=== PATIENT | female | born 1975 | race Caucasian/White ===

== ENCOUNTER 2018-03-23 22:32 | Emergency (ER) | payer SELFPAY ==
[2018-03-23] MEDS ORDERED: NA CHLORIDE 0.9% 2,000 ML ONE (23:40)
[2018-03-23] MEDS ORDERED: ONDANSETRON 4 MG/2 ML VIAL ONE (23:40)
[2018-03-23] MEDS ORDERED: MORPHINE 4 MG/ML SYR ONE (23:40)
[2018-03-23 23:42] LABS: Absolute Lymphocytes (CBC) 1.7 K/uL (0.7-4.9); Absolute Monocytes 0.3 K/uL (0.1-1.3); Absolute Neutrophil 2.5 K/uL (1.8-8.0); Eosinophils % 2.1 % (0-4.4); Hematocrit 37.2 % (36.0-45.0); Lymphocytes % 36.8 % (15.3-44.8); MCH 32.3 pg (27.0-35.0); MCV 92.6 fL (80-100); MPV 9.5 fL (7.6-11.3); Monocytes % 6.7 % (3.3-12.3); RBC Red Blood Cell Count 4.02 M/uL (3.86-4.86)
[2018-03-23 23:46] LABS: Protime INR 0.95
[2018-03-24 00:05] LABS: ALT/SGPT 16 U/L (12-78); AST/SGOT 12 U/L (15-37); Albumin 3.4 g/dL (3.4-5.0); Alkaline Phosphatase 85 U/L (45-117); Amylase Level 34 U/L (25-115); BUN Blood Urea Nitrogen 7 mg/dL (7-18); Bicarbonate 26 mmol/L (21-32); Bilirubin Direct < 0.1 mg/dL (0-0.2); Bilirubin Total 0.2 mg/dL (0.2-1.0); CKMB Creatine Kinase MB < 1.0 ng/mL (0.3-3.6); Creatine Phosphokinase 75 U/L (26-192); Glucose Level 98 mg/dL (74-106); Lipase 102 U/L (73-393); Magnesium 2.1 mg/dL (1.8-2.4); NT PRO-BNP 251 pg/mL (<125); Potassium 3.5 mmol/L (3.5-5.1); Protein, Total 6.9 g/dL (6.4-8.2); Sodium Level 139 mmol/L (136-145); Troponin (Emerg Dept Use Only) < 0.02 ng/mL (0.0-0.045)
[2018-03-24 00:15] LABS: Urine Mucus 2+ /HPF (NONE SEEN)
[2018-03-24 00:16] LABS: Urine Bacteria 20-50 /HPF (<20); Urine Culture Reflex Order REFLEXED
--- NOTE | 2018-03-24 02:37 | EDPHYS ---
Physician Documentation [facility] Name: Anne Marie Dubon Age: 43 yrs Sex: Female : 1975 Arrival Date: 03/23/2018 Time: 22:33 Bed 27 Private MD: ED Physician Olu Renee HPI: 03/23 23:20 This 43 yrs old Female presents to ER via EMS with complaints of Syncope. pkl 23:20 The patient presents with abdominal pain right lower quadrant. Onset: The pkl symptoms/episode began/occurred 3 week(s) ago, and became worse just prior to arrival. Associated signs and symptoms: Pertinent positives: syncope. 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 - Social history:: Smoking status: unknown. - Ebola Screening: : No symptoms or risks identified at this time. ROS: 23:20 Eyes: Negative for injury, pain, redness, and discharge, ENT: Negative for injury, pkl pain, and discharge, Neck: Negative for injury, pain, and swelling, Cardiovascular: Negative for chest pain, palpitations, and edema, Respiratory: Negative for shortness of breath, cough, wheezing, and pleuritic chest pain. 23:20 Abdomen/GI: Positive for abdominal pain, of the right lower quadrant. 23:20 Back: Negative for acute changes. 23:20 : Negative for urinary symptoms. 23:20 MS/extremity: Negative for acute changes. 23:20 Skin: Negative for rash. 23:20 Neuro: Negative for altered mental status. Exam: 23:20 Head/Face: Normocephalic, atraumatic. Eyes: Pupils equal round and reactive to light, pkl extra-ocular motions intact. Lids and lashes normal. Conjunctiva and sclera are non-icteric and not injected. Cornea within normal limits. Periorbital areas with no swelling, redness, or edema. ENT: Nares patent. No nasal discharge, no septal abnormalities noted. Tympanic membranes are normal and external auditory canals are clear. Oropharynx with no redness, swelling, or masses, exudates, or evidence of obstruction, uvula midline. Mucous membranes moist. Neck: Trachea midline, no thyromegaly or masses palpated, and no cervical lymphadenopathy. Supple, full range of motion without nuchal rigidity, or vertebral point tenderness. No Meningismus. Chest/axilla: Normal chest wall appearance and motion. Nontender with no deformity. No lesions are appreciated. Cardiovascular: Regular rate and rhythm with a normal S1 and S2. No gallops, murmurs, or rubs. Normal PMI, no JVD. No pulse deficits. Respiratory: Lungs have equal breath sounds bilaterally, clear to auscultation and percussion. No rales, rhonchi or wheezes noted. No increased work of breathing, no retractions or nasal flaring. 23:20 Abdomen/GI: Bowel sounds: normal, Palpation: soft, mild abdominal tenderness, in the right lower quadrant. 23:20 Back: Exam negative for acute changes. 23:20 : Exam negative for acute changes. 23:20 Musculoskeletal/extremity: Exam is negative for acute changes. 23:20 Skin: Exam negative for rash. 23:20 Neuro: Orientation: is normal, Mentation: is normal, Cranial nerves: grossly normal, Motor: is normal. Vital Signs: 22:56 BP 122 / 62; Pulse 61; Resp 18; Temp 98.3; Pulse Ox 100% on R/A; tl3 03/24 00:34 BP 109 / 67; Pulse 52; Resp 18; Pulse Ox 98% on R/A; tl3 01:03 BP 103 / 71; Pulse 71; Resp 16; Pulse Ox 98% on R/A; tl3 MDM: 03/23 23:12 Patient medically screened. pkl 03/24 02:34 Data reviewed: vital signs, nurses notes, lab test result(s), radiologic studies, CT pkl scan. 03/23 23:18 Order name: Basic Metabolic Panel; Complete Time: 02:32 pkl 03/23 23:18 Order name: CBC with Diff; Complete Time: 02:32 pkl 03/23 23:18 Order name: Ckmb; Complete Time: 02:32 pkl 03/23 23:18 Order name: CPK; Complete Time: 02:32 pkl 03/23 23:18 Order name: LFT's; Complete Time: 02:32 pkl 03/23 23:18 Order name: Magnesium; Complete Time: 02:32 pkl 03/23 23:18 Order name: NT PRO-BNP; Complete Time: 02:32 pkl 03/23 23:18 Order name: PT-INR; Complete Time: 02:32 pkl 03/23 23:18 Order name: Ptt, Activated; Complete Time: 02:32 pkl 03/23 23:18 Order name: Troponin (emerg Dept Use Only); Complete Time: 02:32 pkl 03/23 23:18 Order name: Amylase, Serum; Complete Time: 02:32 pkl 03/23 23:18 Order name: Lipase; Complete Time: 02:32 pkl 03/23 23:29 Order name: UA MICROSCOPIC; Complete Time: 02:32 tl3 03/24 00:18 Order name: Urine Culture [facility] 03/23 23:18 Order name: XRAY Chest (1 view) pk 03/23 23:18 Order name: EKG; Complete Time: 23:19 pkl 03/23 23:18 Order name: Cardiac monitoring; Complete Time: 01:39 pkl 03/23 23:18 Order name: EKG - Nurse/Tech; Complete Time: 00:09 pkl 03/23 23:18 Order name: IV Saline Lock; Complete Time: 01:39 pk 03/23 23:18 Order name: Labs collected and sent; Complete Time: 01:39 pkl 03/23 23:18 Order name: O2 Per Protocol; Complete Time: 01:39 pkl 03/23 23:18 Order name: O2 Sat Monitoring; Complete Time: 01:39 pkl 03/23 23:18 Order name: CT Abd/Pelvis - W/Contrast pk 03/23 23:18 Order name: CT Head Brain wo Cont pkl 03/23 23:18 Order name: Urine Dipstick-Ancillary (obtain specimen); Complete Time: 01:39 pkl Administered Medications: 03/23 23:46 Drug: Zofran 4 mg Route: IVP; Infused Over: 2 mins; Site: right antecubital; tl3 03/24 00:38 Follow up: Response: No adverse reaction tl3 00:37 Drug: morphine 2 mg Route: IVP; Infused Over: 2 mins; Site: right antecubital; tl3 02:38 Follow up: Response: No adverse reaction; Marked relief of symptoms mg2 00:38 Drug: NS 0.9% 1000 ml Route: IV; Rate: 1000 ml; Site: right antecubital; Delivery: tl3 Primary tubing; 00:38 Drug: NS 0.9% 1000 ml Route: IV; Rate: 125 ml/hr; Site: right antecubital; tl3 02:57 Follow up: IV Status: Order to discontinue infusion mg2 02:51 Drug: Cipro 500 mg Route: PO; mg2 02:57 Follow up: Response: No adverse reaction; Medication administered at discharge. mg2 02:51 Drug: UltRAM 50 mg Route: PO; mg2 02:56 Follow up: Response: No adverse reaction; Medication administered at discharge. mg2 Disposition: 03/24/18 02:36 Discharged to Home. Impression: Abdominal pain. Urinary tract infection. Cholelitiasis. Sycopal episode. - Condition is Stable. - Prescriptions for Ultram 50 mg Oral Tablet - take 1 tablet by ORAL route every 8 hours As needed; 20 tablet. Cipro 500 mg Oral Tablet - take 1 tablet by ORAL route every 12 hours for 7 days; 14 tablet. - Medication Reconciliation Form, Thank You Letter, Antibiotic Education, Prescription Opioid Use form. - Follow up: Private Physician; When: 2 - 3 days; Reason: Re-evaluation by your physician. - Problem is new. - Symptoms have improved. Signatures: Dispatcher [employer] EDMS Olu Renee MD MD pkl Lowrey, Tammy, RN RN tl3 Gabe Chapa RN RN mg2 Corrections: (The following items were deleted from the chart) 02:40 02:36 03/24/2018 02:36 Discharged to Home. Impression: Abdominal pain. Urinary tract pkl infection. Cholelitiasis. Condition is Stable. Forms are Medication Reconciliation Form, Thank You Letter, Antibiotic Education, Prescription Opioid Use. Follow up: Private Physician; When: 2 - 3 days; Reason: Re-evaluation by your physician. Problem is new. Symptoms have improved. pkl 02:58 02:40 03/24/2018 02:36 Discharged to Home. Impression: Abdominal pain. Urinary tract mg2 infection. Cholelitiasis. Sycopal episode. Condition is Stable. Prescriptions for Ultram 50 mg Oral Tablet - take 1 tablet by ORAL route every 8 hours As needed; 20 tablet, Cipro 500 mg Oral Tablet - take 1 tablet by ORAL route every 12 hours for 7 days; 14 tablet. and Forms are Medication Reconciliation Form, Thank You Letter, Antibiotic Education, Prescription Opioid Use. Follow up: Private Physician; When: 2 - 3 days; Reason: Re-evaluation by your physician. Problem is new. Symptoms have improved. pkl
--- NOTE | 2018-03-24 02:37 | ER ---
Nurse's Notes [facility] Name: Anne Marie Dubon Age: 43 yrs Sex: Female : 1975 Arrival Date: 03/23/2018 Time: 22:33 Bed 27 Private MD: Diagnosis: Abdominal pain. Urinary tract infection. Cholelitiasis. Sycopal episode Presentation: 03/23 22:51 Presenting complaint: EMS states: abdominal pain, back pain started tonight, became tl3 diaphoretic with possible syncope. Transition of care: patient was not received from another setting of care. Onset of symptoms was March 23, 2018. Risk Assessment: Do you want to hurt yourself or someone else? Patient reports no desire to harm self or others. Initial Sepsis Screen: Does the patient meet any 2 criteria? No. Patient's initial sepsis screen is negative. Does the patient have a suspected source of infection? No. Patient's initial sepsis screen is negative. Care prior to arrival: None. 22:51 Method Of Arrival: EMS: [facility] tl3 22:51 Acuity: JULIA 3 tl3 Triage Assessment: 22:53 General: Appears uncomfortable, obese, well groomed, well developed, well nourished, tl3 Behavior is cooperative, appropriate for age. Pain: Complains of pain in abdomen Pain currently is 10 out of 10 on a pain scale. EENT: No signs and/or symptoms were reported regarding the EENT system. Neuro: Level of Consciousness is awake, alert, obeys commands, Oriented to person, place, time, situation, Appropriate for age Reports numbness in left arm. Cardiovascular: Heart tones S1 S2 present Patient's skin is warm and dry. Respiratory: Airway is patent Respiratory effort is even, unlabored, Respiratory pattern is regular, symmetrical, Breath sounds are clear bilaterally. GI: Reports last BM two days ago, not on a regular schedule. GI: Abdomen is round Last BM was March 21, 2018. Reports lower abdominal pain. : No signs and/or symptoms were reported regarding the genitourinary system. Derm: No signs and/or symptoms reported regarding the dermatologic system. Musculoskeletal: No signs and/or symptoms reported regarding the musculoskeletal system. 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 - Social history:: Smoking status: unknown. - Ebola Screening: : No symptoms or risks identified at this time. Screenin:58 Abuse screen: Denies threats or abuse. Nutritional screening: No deficits noted. tl3 Tuberculosis screening: No symptoms or risk factors identified. Fall Risk None identified. Assessment: 22:58 Reassessment: No changes from previously documented assessment. Neuro: No deficits tl3 noted. Level of Consciousness is awake, alert, obeys commands, Oriented to person, place, time, situation, Appropriate for age. Cardiovascular: Patient's skin is warm and dry. Rhythm is regular. 09 00:34 Reassessment: No changes from previously documented assessment. Patient and/or family tl3 updated on plan of care and expected duration. Pain level reassessed. Patient is alert, oriented x 3, equal unlabored respirations, skin warm/dry/pink. 01:03 Reassessment: No changes from previously documented assessment. Patient and/or family tl3 updated on plan of care and expected duration. Pain level reassessed. Patient is alert, oriented x 3, equal unlabored respirations, skin warm/dry/pink. 01:04 Reassessment: report given to JOHANNA Osei. tl3 Vital Signs: 03/23 22:56 BP 122 / 62; Pulse 61; Resp 18; Temp 98.3; Pulse Ox 100% on R/A; tl3 12 00:34 BP 109 / 67; Pulse 52; Resp 18; Pulse Ox 98% on R/A; tl3 01:03 BP 103 / 71; Pulse 71; Resp 16; Pulse Ox 98% on R/A; tl3 ED Course: 03/23 22:33 Patient arrived in ED. ds1 22:36 Adwoa Hoyt, JOHANNA is Primary Nurse. tl3 22:52 Triage completed. tl3 22:56 Arm band placed on right wrist. tl3 22:58 Patient has correct armband on for positive identification. Bed in low position. Call tl3 light in reach. Side rails up X 1. Adult w/ patient. Pulse ox on. NIBP on. 22:58 No provider procedures requiring assistance completed. Inserted saline lock: 20 gauge tl3 in right antecubital area, using aseptic technique. Blood collected. 23:12 Olu Renee MD is Attending Physician. pkl 23:13 ED physician to see patient. tl3 23:[address] via wheelchair. kw1 23:52 XRAY Chest (1 view) In Process Unspecified. EDMS 23:54 CT Head Brain wo Cont In Process Unspecified. EDMS 23:57 CT completed. Patient tolerated procedure well. Patient moved back from CT. kw1 09/12 00:06 EKG done, by ED staff, reviewed by Olu Renee MD. cc1 00:19 X-ray completed. Portable x-ray completed in exam room. Patient tolerated procedure kw well. 02:[address] via wheelchair. kw1 02:12 CT Abd/Pelvis - W/Contrast In Process Unspecified. EDMS 02:13 CT completed. Patient tolerated procedure well. Patient moved back from CT. kw1 02:57 IV discontinued, intact, bleeding controlled, No redness/swelling at site. Pressure mg2 dressing applied. Administered Medications: 03/23 23:46 Drug: Zofran 4 mg Route: IVP; Infused Over: 2 mins; Site: right antecubital; tl3 09/ 00:38 Follow up: Response: No adverse reaction tl3 00:37 Drug: morphine 2 mg Route: IVP; Infused Over: 2 mins; Site: right antecubital; tl3 02:38 Follow up: Response: No adverse reaction; Marked relief of symptoms mg2 00:38 Drug: NS 0.9% 1000 ml Route: IV; Rate: 1000 ml; Site: right antecubital; Delivery: tl3 Primary tubing; 00:38 Drug: NS 0.9% 1000 ml Route: IV; Rate: 125 ml/hr; Site: right antecubital; tl3 02:57 Follow up: IV Status: Order to discontinue infusion mg2 02:51 Drug: Cipro 500 mg Route: PO; mg2 02:57 Follow up: Response: No adverse reaction; Medication administered at discharge. mg2 02:51 Drug: UltRAM 50 mg Route: PO; mg2 02:56 Follow up: Response: No adverse reaction; Medication administered at discharge. mg2 Outcome: 02:36 Discharge ordered by . pkl 02:58 Discharged to home via wheelchair. mg2 02:58 Condition: stable 02:58 Discharge instructions given to patient, Instructed on discharge instructions, follow up and referral plans. medication usage, Demonstrated understanding of instructions, follow-up care, medications, Prescriptions given X 2. 02:58 Patient left the ED. mg2 Signatures: Dispatcher [employer] EDMS Olu Renee MD MD pkl Jazmín Sam ds1 Arelis Hartman Charlie cc1 Carina Lawson1 Adwoa Hoyt, RN RN tl3 Gabe Chapa RN RN mg2
[2018-03-24] MEDS ORDERED: TRAMADOL HCL 50 MG TAB ONE (02:48)
[2018-03-24] MEDS ORDERED: CIPROFLOXACIN HCL 500 MG TAB ONE (02:48)
[2018-03-24 03:12] VITALS: TEMP 98.3
[2018-03-24 03:13] VITALS: O2SAT 98
[2018-03-24 03:14] VITALS: BP 103/71
--- NOTE | 2018-03-24 08:17 | RAD REPORT ---
EXAM DESCRIPTION: CT - Head Brain Wo Cont - 03/24/2018 4:34 am CLINICAL HISTORY: SYNCOPE COMPARISON: CT FACIAL BONES W CON MPR dated 09/19/2010 TECHNIQUE: All CT scans are performed using dose optimization technique as appropriate and may inclu de automated exposure control or mA/KV adjustment according to patient size. FINDINGS: No intracranial hemorrhage, hydrocephalus or extra-axial fluid collection.No areas of brai n edema or evidence of midline shift. The paranasal sinuses and mastoids are clear. The calvarium is intact. IMPRESSION: No acute intracranial abnormality.
--- NOTE | 2018-03-24 08:19 | RAD REPORT ---
EXAM DESCRIPTION: RAD - Chest Single View - 03/24/2018 12:04 am CLINICAL HISTORY: syncope;Chest pain Chest pain. COMPARISON: Chest Single View dated 05/13/2017 FINDINGS: Portable technique limits examination quality. The lungs are grossly clear. The heart is normal in size. No displaced fractures. IMPRESSION: No acute intrathoracic process suspected.
--- NOTE | 2018-03-24 08:29 | RAD REPORT ---
EXAM DESCRIPTION: CTAbdomen Pelvis W Contrast - 03/24/2018 4:36 am CLINICAL HISTORY: Abdominal pain. ABD PAIN COMPARISON: CT ABD PELVIS W CONTRAST dated 12/16/2014 TECHNIQUE: Biphasic CT imaging of the abdomen and pelvis was performed with 100 ml non-ionic IV cont rast. All CT scans are performed using dose optimization technique as appropriate and may include automated exposure control or mA/KV adjustment according to patient size. FINDINGS: The lung bases are clear. The liver, spleen, pancreas, adrenal glands and kidneys are within normal limits. Cholelithiasis. No bowel obstruction, free air, free fluid or abscess. Moderate stool is present throughout the colon . The appendix is normal. No evidence of significant lymphadenopathy. No suspicious bony findings. IMPRESSION: Cholelithiasis. Moderate fecal retention throughout the colon.
--- NOTE | 2018-03-24 12:10 | EKG ---
Test Date: 2018-03-24 Test Time: 00:05:29 Hydrocrane Operator: JOSHUA MEASUREMENT RESULTS: Intervals: Rate: 57 MD: 142 QRSD: 80 QT: 432 QTc: 420 [place]: P: 74 MD: 142 QRS: 32 T: 37 INTERPRETIVE STATEMENTS: Sinus bradycardia Otherwise normal ECG No previous ECG available for comparison Electronically Signed On 03-24-18 12:08:39 CDT by Tito Arnett
== END 2018-03-24 02:58 | disposition home or self-care (01) ==
LOC: ER 22:32
DX: N39.0 Urinary tract infection, site not specified (principal); K80.20 Calculus of gallbladder without cholecystitis without obstruction; R55 Syncope and collapse; Z88.0 Allergy status to penicillin; Z88.5 Allergy status to narcotic agent
CPT/HCPCS: 36415; 70450; 71045; 74177; 80048; 80076; 81015; 82150; 82550; 82553; 83690; 83735; 83880; 84484; 85025; 85610; 85730; 87086; 87088; 93005; 96361; 96374; 96375; 99285; J2405; J7030; Q9967

== ENCOUNTER 2018-05-12 08:20 | Day surgery (SDC) | payer SELFPAY ==
[2018-05-11 17:39] LABS: Potassium 3.8 mmol/L (3.5-5.1)
[2018-05-11 17:44] LABS: Absolute Lymphocytes (CBC) 1.6 K/uL (0.7-4.9); Absolute Monocytes 0.4 K/uL (0.1-1.3); Absolute Neutrophil 4.2 K/uL (1.8-8.0); Basophils % 0.8 % (0-1.3); Eosinophils % 1.2 % (0-4.4); Hematocrit 38.9 % (36.0-45.0); Lymphocytes % 25.1 % (15.3-44.8); MCH 31.5 pg (27.0-35.0); MCV 93.2 fL (80-100); MPV 9.7 fL (7.6-11.3); RBC Red Blood Cell Count 4.17 M/uL (3.86-4.86)
[2018-05-11 18:05] LABS: Albumin 3.7 g/dL (3.4-5.0); Bilirubin Direct 0.1 mg/dL (0-0.2); Bilirubin Total 0.4 mg/dL (0.2-1.0); Protein, Total 7.1 g/dL (6.4-8.2)
[2018-05-12] MEDS ORDERED: Ringers Lactate 1,000 ML IV ONE (09:01)
[2018-05-12] MEDS ORDERED: CIPROFLOXACIN 400mg IV 400 MG/200 ML BAG IV ONE (09:02)
[2018-05-12] MEDS ORDERED: ROCURONIUM 50 MG/5 ML VIAL IV ONE ×2 (09:37→10:08)
[2018-05-12] MEDS ORDERED: FENTANYL CITR 100 MCG/2 ML ONE ×2 (09:37→10:08)
[2018-05-12] MEDS ORDERED: PROPOFOL 200 MG/20 ML VIAL IV ONE ×2 (09:37→10:08)
[2018-05-12] MEDS ORDERED: LIDOCAINE 1% MPF 5 ML VIAL ONE (09:38)
[2018-05-12] MEDS ORDERED: MIDAZOLAM HCL 2 MG/2 ML INJ ONE ×2 (09:38→10:08)
[2018-05-12] MEDS ORDERED: BUPIVACAINE 0.5% PF 10 ML VIAL ONE (10:07)
[2018-05-12] MEDS ORDERED: LIDOCAINE 1% MPF 2 ML AMPULE ONE (10:09)
[2018-05-12] MEDS ORDERED: ONDANSETRON HCL 40 MG/20 ML VIAL ONE (10:10)
[2018-05-12] MEDS ORDERED: NEOSTIGMINE 1 MG/ML -5 ML SYRINGE ONE (11:24)
[2018-05-12] MEDS ORDERED: GLYCOPYRROLATE 0.2 MG/ML SYR ONE (11:24)
[2018-05-12] MEDS: MEPERIDINE HCL 50 MG/ML AMP ONE ×4 (11:37→11:52)
[2018-05-12] MEDS ORDERED: ONDANSETRON 4 MG/2 ML VIAL ONE (11:43)
[2018-05-12] MEDS ORDERED: PROMETHAZINE 25 MG/ML VIAL ONE (12:13)
[2018-05-12] MEDS: HYDROMORPHONE HCL 1 MG/ML INJ ONE ×2 (12:14→12:20)
[2018-05-12] MEDS ORDERED: KETOROLAC 30 MG/ML INJ ONE (12:18)
--- NOTE | 2018-05-12 12:46 | DS ---
Discharge Note: The patient will go to Day Surgery and home when stable. Disposition: Home. Condition: Stable. Discharge Instructions: Resume home medications and diet. Activity as tolerated. No heavy lifting. Remove outer dressing in 2 days. Shower. Keep wound clean and dry. Keep Steri-Strips on at all t imes. Incentive spirometry as ordered and Ultracet 1 tablet p.o. q.4 p.r.n. pain, and follow up in m y office in 1 week. Call for appointment. MELI/BRANDON Voice ID: [id number] Report ID: [id number]
--- NOTE | 2018-05-12 12:46 | OP ---
Date of Procedure: 05/12/2018 Surgeon: Kurtis Nicole MD Elevator Troubleshooter: HUMA Nicole. Preoperative Diagnosis: Symptomatic cholelithiasis. Postoperative Diagnoses: Symptomatic cholelithiasis with extensive adhesions. Procedures Performed: Laparoscopic cholecystectomy and lysis of adhesions. Estimated Blood Loss: Minimal. Specimen: Gallbladder. Finding: As above. Anesthesia: General. Complications: None. Disposition: The patient tolerated the procedure in stable condition and taken to Recovery in good g eneral condition. Procedure In Detail: The patient was brought to the OR and placed in supine position. General anest hesia was begun. The patient was prepped and draped in usual sterile fashion. Marcaine 0.5% was inf iltrated locally. A 15-blade was used to make a 1 cm supraumbilical midline incision. Subcutaneous tissue divided. The fascia was identified and divided. #1 Vicryl stay suture was placed. Peritonea l cavity was entered with sharp and blunt dissection 12 mm trocar was placed into the peritoneal cavi ty under direct vision. Pneumoperitoneum was established. Then, three 5 mm trocars were placed 1 in the epigastrium just to the right of midline and 2 in the right subcostal region. Laparoscopy revea led extensive adhesions to the gallbladder, they were omental in nature. A cautery utilized to relea se the adhesions from the gallbladder and the liver and then the fundus retracted superiorly. Infund ibulum was identified and retracted inferolaterally. Cystic duct and cystic artery were clearly iden tified with blunt dissection. Clips placed. Both structures were divided. Cautery was used to roxanne ve the gallbladder from the liver bed. Bleeding on the liver bed was controlled with cautery. The g allbladder was retrieved through the umbilicus via an EndoCatch bag. Right upper quadrant examined. No evidence of bleeding or bile leakage appreciated. Subsequently, all trocars were removed under d irect vision. Stay sutures were tied to each other to approximate the fascial defect. Subcu wounds were irrigated. Bleeding controlled with cautery. A 3-0 chromic used to approximate the subcutaneou s tissue and close the skin. Sterile dressing was applied. The patient was awakened and taken to Re covery in good general condition. /MODL Voice ID: [id number] Report ID: [id number]
[2018-05-12 14:32] VITALS: BP 103/70; TEMP 97.4; O2SAT 97
== END 2018-05-12 14:25 | disposition home or self-care (01) ==
LOC: OR 08:20
PROVIDERS: ATTEND Surgery
PROC: 0DNU4ZZ Release Omentum, Percutaneous Endoscopic Approach (ICD-10-PCS; 2018-05-12)
PROC: 0FT44ZZ Resection of Gallbladder, Percutaneous Endoscopic Approach (ICD-10-PCS; principal; 2018-05-12 09:45)
DX: K80.10 Calculus of gallbladder with chronic cholecystitis without obstruction (principal); K66.0 Peritoneal adhesions (postprocedural) (postinfection); Z72.0 Tobacco use; Z88.0 Allergy status to penicillin; Z88.6 Allergy status to analgesic agent
CPT/HCPCS: 36415; 80048; 80076; 82150; 84703; 85025; 88304; J0744; J1170; J2001; J2175; J2250; J2405; J2550; J2704; J2710; J3010

== ENCOUNTER 2020-12-31 02:10 | Emergency (ER) | payer SELFPAY ==
[2020-12-31] MEDS ORDERED: KETOROLAC 30 MG/ML INJ ONE (03:13)
--- NOTE | 2020-12-31 04:12 | EDPHYS ---
Physician Documentation [facility] Name: Anne Marie Dubon Age: 45 yrs Sex: Female : 1975 Arrival Date: 12/31/2020 Time: 02:14 Bed 7 Private MD: ED Physician Maxwlel Delgadillo HPI: 12/31 03:42 This 45 yrs old Female presents to ER via Wheelchair with complaints of Foot mh7 Injury. 03:42 The patient presents with an injury. The complaints affect the left foot. Context: The mh7 problem was sustained at home, resulted from stubbing toe on furniture. Mechanism of Injury: direct blow the patient can fully bear weight, the patient is able to ambulate. Onset: The symptoms/episode began/occurred yesterday. Modifying factors: The symptoms are alleviated by nothing, the symptoms are aggravated by weight bearing. Associated signs and symptoms: Pertinent negatives: calf tenderness, fever, nausea, numbness, rash, swelling, tingling, vomiting, warmth, weakness. Severity of symptoms: At their worst the symptoms were moderate, last night, in the emergency department the symptoms are unchanged. 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 - Social history:: Smoking status: Patient reports the use of cigarette tobacco products, smokes one-half pack cigarettes per day. ROS: 03:50 Constitutional: Negative for fever, chills, and weight loss, Eyes: Negative for injury, mh7 pain, redness, and discharge, ENT: Negative for injury, pain, and discharge, Neck: Negative for injury, pain, and swelling, Cardiovascular: Negative for chest pain, palpitations, and edema, Respiratory: Negative for shortness of breath, cough, wheezing, and pleuritic chest pain, Abdomen/GI: Negative for abdominal pain, nausea, vomiting, diarrhea, and constipation, Back: Negative for injury and pain, : Negative for injury, bleeding, discharge, and swelling, Skin: Negative for injury, rash, and discoloration, Neuro: Negative for headache, weakness, numbness, tingling, and seizure, Psych: Negative for depression, anxiety, suicide ideation, homicidal ideation, and hallucinations, Allergy/Immunology: Negative for hives, rash, and allergies, Endocrine: Negative for neck swelling, polydipsia, polyuria, polyphagia, and marked weight changes, Hematologic/Lymphatic: Negative for swollen nodes, abnormal bleeding, and unusual bruising. Exam: 03:50 Constitutional: This is a well developed, well nourished patient who is awake, alert, mh7 and in no acute distress. Head/Face: Normocephalic, atraumatic. Skin: Warm, dry with normal turgor. Normal color with no rashes, no lesions, and no evidence of cellulitis. 03:50 Neuro: Awake and alert, GCS 15, oriented to person, place, time, and situation. Cranial nerves II-XII grossly intact. Motor strength 5/5 in all extremities. Sensory grossly intact. Cerebellar exam normal. Normal gait. Psych: Awake, alert, with orientation to person, place and time. Behavior, mood, and affect are within normal limits. 03:50 Musculoskeletal/extremity: Extremities: noted in the left fourth toe: contusion, decreased ROM, ecchymosis, pain, tenderness, ROM: limited active range of motion due to pain, in the left fourth toe, limited passive range of motion due to pain, in the left fourth toe, Circulation is intact in all extremities. Sensation intact. Compartment Syndrome exam of affected extremity: is normal. no numbness, no tingling, no sensation deficit, no palor, no weak pulses, Joints: All joints appear normal with full range of motion. Weight bearing: able to fully bear weight, Tendon exam: specific tendon testing normal through active and passive range of motion Vital Signs: 02:26 BP 148 / 86; Pulse 79; Resp 18; Pulse Ox 96% on R/A; Weight 92.53 kg; Height 5 ft. 5 em in. (165.10 cm); Pain 10/10; 03:11 BP 142 / 86; Pulse 52; Resp 16; Pulse Ox 98% on R/A; lp1 04:14 Temp 97.2(TE); lp1 02:26 Body Mass Index 33.95 (92.53 kg, 165.10 cm) em MDM: 04:09 Differential diagnosis: fracture, sprain, arthritis, contusion. Data reviewed: vital [facility] signs, nurses notes, radiologic studies, plain films. Counseling: I had a detailed discussion with the patient and/or guardian regarding: the historical points, exam findings, and any diagnostic results supporting the discharge/admit diagnosis, radiology results, the need for outpatient follow up, to return to the emergency department if symptoms worsen or persist or if there are any questions or concerns that arise at home. Response to treatment: the patient's symptoms have markedly improved after treatment. 04:11 Patient medically screened. [facility] 12/31 02:57 Order name: Foot Left 3 View XRAY [facility] 12/31 04:09 Order name: Orthopedic shoe; Complete Time: 04:23 [facility] Administered Medications: 02:56 Drug: TORadol (ketorolac) 60 mg Route: IM; Site: right gluteus; lp1 04:18 Follow up: Response: No adverse reaction 1 Disposition: 12/31/20 04:11 Discharged to Home. Impression: Contusion, 4th Toe, Left Foot. - Condition is Stable. - Discharge Instructions: Foot Contusion, [id number]. - Prescriptions for Ibuprofen 800 mg Oral Tablet - take 1 tablet by ORAL route every 8 hours As needed take with food; 15 tablet. - Medication Reconciliation Form, Thank You Letter, Antibiotic Education, Prescription Opioid Use form. - Follow up: Private Physician; When: 1 - 2 days; Reason: Worsening of condition, Recheck today's complaints, Continuance of care, Re-evaluation by your physician. Follow up: Charles Holman DPM; When: 2 - 3 days; Reason: Worsening of condition, Recheck today's complaints. - Problem is new. - Symptoms have improved. Signatures: Dispatcher [employer] EDSarbjit Potter RN RN em Renuka Pierce RN RN lp1 Maxwell Delgadillo MD MD 7 Corrections: (The following items were deleted from the chart) 04:23 04:11 12/31/2020 04:11 Discharged to Home. Impression: Contusion, 4th Toe, Left Foot. lp1 Condition is Stable. Forms are Medication Reconciliation Form, Thank You Letter, Antibiotic Education, Prescription Opioid Use. Follow up: Private Physician; When: 1 - 2 days; Reason: Worsening of condition, Recheck today's complaints, Continuance of care, Re-evaluation by your physician. Follow up: Charles Holman; When: 2 - 3 days; Reason: Worsening of condition, Recheck today's complaints. Problem is new. Symptoms have improved. mh7
--- NOTE | 2020-12-31 04:12 | ER ---
Nurse's Notes [facility] Name: Anne Marie Dubon Age: 45 yrs Sex: Female : 1975 Arrival Date: 12/31/2020 Time: 02:14 Bed 7 Private MD: Diagnosis: Contusion, 4th Toe, Left Foot Presentation: 12/31 02:26 Chief complaint: Patient states: was playing with grandchild and kicked a chair on em accident at 8 PM, reports pain in the 4th toe on left foot, swelling/bruising noted to toe. Coronavirus screen: Client denies travel out of the [place] in the last 14 days. Ebola Screen: Patient negative for fever greater than or equal to 101.5 degrees Fahrenheit, and additional compatible Ebola Virus Disease symptoms Patient denies exposure to infectious person. Patient denies travel to an Ebola-affected area in the 21 days before illness onset. No symptoms or risks identified at this time. Initial Sepsis Screen: Does the patient meet any 2 criteria? No. Patient's initial sepsis screen is negative. Does the patient have a suspected source of infection? No. Patient's initial sepsis screen is negative. Risk Assessment: Do you want to hurt yourself or someone else? Patient reports no desire to harm self or others. Onset of symptoms was December 31, 2020. 02:26 Method Of Arrival: Wheelchair em 02:26 Acuity: JULIA 4 em Triage Assessment: 03:11 Injury Description: Bruise sustained to left fourth toe. 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 - Social history:: Smoking status: Patient reports the use of cigarette tobacco products, smokes one-half pack cigarettes per day. Screenin:57 Abuse screen: Denies threats or abuse. Denies injuries from another. Nutritional lp1 screening: No deficits noted. Tuberculosis screening: No symptoms or risk factors identified. Fall Risk None identified. Assessment: 02:45 General: Appears in no apparent distress. Behavior is appropriate for age. Pain: lp1 Complains of pain in dorsum of left foot, left first toe, left second toe, left third toe, left fourth toe and left fifth toe Pain currently is 7 out of 10 on a pain scale. Quality of pain is described as aching. Neuro: Level of Consciousness is awake, alert, obeys commands. Cardiovascular: Patient's skin is warm and dry. Respiratory: Respiratory effort is even, unlabored. GI: No signs and/or symptoms were reported involving the gastrointestinal system. : No signs and/or symptoms were reported regarding the genitourinary system. EENT: No signs and/or symptoms were reported regarding the EENT system. Derm: Skin is pink, warm \T\ dry. Bruising that is dark purple, on left fourth toe. Musculoskeletal: Circulation, motion, and sensation intact. 02:56 Reassessment: Verbal order for Toradol 60mg IM now. lp1 Vital Signs: 02:26 BP 148 / 86; Pulse 79; Resp 18; Pulse Ox 96% on R/A; Weight 92.53 kg; Height 5 ft. 5 em in. (165.10 cm); Pain 10/10; 03:11 BP 142 / 86; Pulse 52; Resp 16; Pulse Ox 98% on R/A; lp1 04:14 Temp 97.2(TE); lp1 02:26 Body Mass Index 33.95 (92.53 kg, 165.10 cm) em ED Course: 02:14 Patient arrived in ED. am4 02:24 Maxwell Delgadillo MD is Attending Physician. mh7 02:27 Triage completed. em 02:28 Arm band placed on. em 02:56 Renuka Pierce, JOHANNA is Primary Nurse. lp1 02:57 Patient has correct armband on for positive identification. lp1 03:37 Foot Left 3 View XRAY In Process Unspecified. EDMS 04:10 Charles Holman DPM is Referral Physician. 7 04:18 No provider procedures requiring assistance completed. Patient did not have IV access lp1 during this emergency room visit. 04:22 Gregory tape left third toe and left fourth toe Ortho shoe applied to left foot. lp1 Administered Medications: 02:56 Drug: TORadol (ketorolac) 60 mg Route: IM; Site: right gluteus; lp1 04:18 Follow up: Response: No adverse reaction lp1 Outcome: 04:11 Discharge ordered by . gosia 04:23 Discharged to home via wheelchair, with friend. lp1 04:23 Condition: good 04:23 Discharge instructions given to patient, Instructed on discharge instructions, follow up and referral plans. medication usage, Demonstrated understanding of instructions, follow-up care, medications, Prescriptions given X 1. 04:23 Patient left the ED. lp1 Signatures: Dispatcher [employer] EDSarbjit Potter RN RN em Pena, Laura, RN RN lp1 Maxwell Delgadillo MD MD mh7 Martinez, Ashley am4
[2020-12-31 04:30] VITALS: BP 142/86; O2SAT 98
[2020-12-31 04:31] VITALS: TEMP 97.2
--- NOTE | 2020-12-31 07:58 | RAD REPORT ---
EXAM DESCRIPTION: RAD - Foot Left 3 View - 12/31/2020 3:36 am CLINICAL HISTORY: trauma, pain to fourth toe left foot COMPARISON: No comparisons FINDINGS: Punctate nondisplaced fractures present on the medial base fourth distal phalanx. Proximal and middle findings. No other fracture or acute bone finding identified. No air or foreign body in the soft tissues. IMPRESSION: Punctate fracture along the medial side base of the distal phalanx fourth toe. No displa cement or angulation of this 1.5 millimeter sized fracture fragment.
== END 2020-12-31 04:23 | disposition home or self-care (01) ==
LOC: ER 02:10
DX: S90.122A Contusion of left lesser toe(s) without damage to nail, initial encounter (principal); F17.210 Nicotine dependence, cigarettes, uncomplicated; W22.03XA Walked into furniture, initial encounter; Y92.009 Unspecified place in unspecified non-institutional (private) residence as the place of occurrence of the external cause
CPT/HCPCS: 96372; 99284

== ENCOUNTER 2021-04-19 08:14 | Emergency (ER) | payer SELFPAY ==
[2021-04-19 09:22] LABS: ALT/SGPT 14 U/L (12-78); AST/SGOT 11 U/L (15-37); Absolute Lymphocytes (CBC) 1.2 K/uL (0.7-4.9); Albumin 3.5 g/dL (3.4-5.0); Alkaline Phosphatase 88 U/L (45-117); BUN Blood Urea Nitrogen 7 mg/dL (7-18); Bicarbonate 27 mmol/L (21-32); Bilirubin Direct 0.1 mg/dL (0-0.2); Bilirubin Total 0.5 mg/dL (0.2-1.0); Glucose Level 94 mg/dL (74-106); Lymphocytes % 27.6 % (15.3-44.8); MPV 8.5 fL (7.6-11.3); NT PRO-BNP 95 pg/mL (<125); Potassium 3.6 mmol/L (3.5-5.1); Protein, Total 6.9 g/dL (6.4-8.2); Protime INR 1.01; Sodium Level 139 mmol/L (136-145); Troponin (Emerg Dept Use Only) < 0.02 ng/mL (0.0-0.045)
--- NOTE | 2021-04-19 10:15 | RAD REPORT ---
EXAM DESCRIPTION: RAD - Chest Single View - 04/19/2021 10:04 am CLINICAL HISTORY: PAIN Chest pain. COMPARISON: Chest Single View dated 03/23/2018; Chest Single View dated 05/13/2017 FINDINGS: Portable technique limits examination quality. The lungs are grossly clear. The heart is normal in size. No displaced fractures. IMPRESSION: No acute intrathoracic process suspected.
--- NOTE | 2021-04-19 11:26 | ER ---
Nurse's Notes [facility] Name: Anne Marie Dubon Age: 46 yrs Sex: Female : 1975 Arrival Date: 04/19/2021 Time: 08:16 Bed 13 Private MD: Diagnosis: Chest pain, unspecified;Vomiting;Diarrhea, unspecified Presentation: 04/19 08:23 Chief complaint: Patient states: Cough, chest pain, fast HR, blurred vision since ll1 Thursday. No fever. Coronavirus screen: Vaccine status: Patient reports being unvaccinated. Client denies travel out of the [place] in the last 14 days. cough unrelated to allergies, diarrhea, difficulty breathing, nausea, shortness of breath, vomiting. Client presents with at least one sign or symptom that may indicate coronavirus-19. Standard/surgical mask placed on the client. Ebola Screen: Patient denies travel to an Ebola-affected area in the 21 days before illness onset. Initial Sepsis Screen: Does the patient meet any 2 criteria? No. Patient's initial sepsis screen is negative. Does the patient have a suspected source of infection? Yes: Productive cough/pneumonia. Risk Assessment: Do you want to hurt yourself or someone else? Patient reports no desire to harm self or others. Onset of symptoms was April 16, 2021. 08:23 Method Of Arrival: Ambulatory ll1 08:23 Acuity: JULIA 3 ll1 Historical: - Allergies: 08:23 Codeine; ll1 08:23 Hydrocodone-Acetaminophen; ll1 08:23 PENICILLINS; ll1 - PMHx: 08:23 None; ll1 - PSHx: 08:23 Cholecystectomy; tubal ; ll1 - Immunization history:: Client reports having NOT received the Covid vaccine. Flu vaccine is not up to date. - Social history:: Smoking status: Patient reports the use of cigarette tobacco products, smokes one-half pack cigarettes per day. Assessment: 08:47 General: Appears in no apparent distress. Behavior is calm, cooperative, appropriate tc5 for age. Pain: Complains of pain in chest. Neuro: No deficits noted. Cardiovascular: Reports chest pain, since Chest pain and non productive cough since Thursday. Respiratory: No deficits noted. GI: upset stomach and nausea, decreased appetite since thursday. : No deficits noted. Vital Signs: 08:23 BP 114 / 84; Pulse 81; Resp 18; Temp 97.6; Pulse Ox 99% ; Weight 92.99 kg; Height 5 ft. ll1 5 in. (165.10 cm); Pain 7/10; 12:07 BP 124 / 72; Pulse 55; Resp 16; Pulse Ox 97% ; tc5 08:23 Body Mass Index 34.11 (92.99 kg, 165.10 cm) 1 ED Course: 08:16 Patient arrived in ED. rg4 08:17 Gema Ludwig, JOHANNA is Primary Nurse. tc5 08:22 David Lopez, EMILY is PHCP. pm1 08:22 Kevin Vallejo MD is Attending Physician. pm1 08:22 Arm band placed on Patient placed in an exam room, on a stretcher. ll1 08:25 Triage completed. ll1 08:37 Patient has correct armband on for positive identification. Placed in gown. Bed in low mh5 position. Call light in reach. Side rails up X 1. Warm blanket given. Pillow given. supervisor fishing on. Pulse ox on. NIBP on. 08:43 Basic Metabolic Panel Sent. mh5 08:43 CBC with Diff Sent. 5 08:43 LFT's Sent. 5 08:43 Magnesium Sent. 5 08:43 NT PRO-BNP Sent. 5 08:44 PT-INR Sent. 5 08:44 Troponin (emerg Dept Use Only) Sent. 5 08:44 EKG done, COVID swab sent to lab. Flu and/or RSV swab sent to lab. Strep swab sent to [facility]. Inserted saline lock: 20 gauge in right forearm, using aseptic technique. Blood collected. 08:48 Inserted saline lock: 20 gauge in right antecubital area, using aseptic technique. tc5 Blood collected. 10:04 XRAY Chest (1 view) In Process Unspecified. EDMS 12:17 IV discontinued, intact, bleeding controlled, No redness/swelling at site. Pressure tc5 dressing applied. Administered Medications: 11:46 Drug: Ketorolac 30 mg Route: IVP; Site: right antecubital; tc5 12:08 Follow up: Response: No adverse reaction tc5 11:46 Drug: Zofran (Ondansetron) 4 mg Route: IVP; Site: right antecubital; tc5 12:07 Follow up: BP 124 / 72; Pulse 55 bpm; Resp 16 bpm; Pulse Ox 97% tc5 Outcome: 11:25 Discharge ordered by pm1 12:33 Patient left the ED. tc5 Signatures: Dispatcher [employer] EDMS David Lopez NP COFFEE HOST pm1 Eliana Potter Maria 5 Dayanara Aranda RN RN 1 Gema Ludwig RN RN tc5
--- NOTE | 2021-04-19 11:26 | EDPHYS ---
Physician Documentation [facility] Name: Anne Marie Dubon Age: 46 yrs Sex: Female : 1975 Arrival Date: 04/19/2021 Time: 08:16 Bed 13 Private MD: ED Physician Kevin Vallejo HPI: 04/19 09:02 This 46 yrs old Female presents to ER via Ambulatory with complaints of Chest pm1 Pain. 09:02 The patient or guardian reports chest pain that is located primarily in the right pm1 breast and left breast. Onset: 3 day(s) ago. The pain does not radiate. Associated signs and symptoms: Pertinent positives: cough, nausea, vomiting, Diarrhea, Pertinent negatives: abdominal pain, diaphoresis, dizziness, headache, shortness of breath. The chest pain is described as sharp. Duration: The patient or guardian reports a single episode, that is still ongoing. Modifying factors: the symptoms are aggravated by deep breath, eating, palpation of area. Severity of pain: in the emergency department the pain is unchanged. The patient has not experienced similar symptoms in the past. The patient has not recently seen a physician. Historical: - Allergies: 08:23 Codeine; ll1 08:23 Hydrocodone-Acetaminophen; ll1 08:23 PENICILLINS; ll1 - PMHx: 08:23 None; ll1 - PSHx: 08:23 Cholecystectomy; tubal ; ll1 - Immunization history:: Client reports having NOT received the Covid vaccine. Flu vaccine is not up to date. - Social history:: Smoking status: Patient reports the use of cigarette tobacco products, smokes one-half pack cigarettes per day. ROS: 09:02 Back: Negative for injury and pain, : Negative for injury, bleeding, discharge, and pm1 swelling, MS/Extremity: Negative for injury and deformity, Skin: Negative for injury, rash, and discoloration, Neuro: Negative for headache, weakness, numbness, tingling, and seizure. 09:02 Constitutional: Positive for poor PO intake, For the past 3 days. 09:02 ENT: Positive for rhinorrhea, Negative for ear pain, sore throat. 09:02 Cardiovascular: Positive for chest pain, palpitations. 09:02 Respiratory: Positive for cough. 09:02 Abdomen/GI: Positive for nausea, vomiting, and diarrhea, Negative for abdominal pain, constipation. 09:02 All other systems are negative. Exam: 09:02 Constitutional: This is a well developed, well nourished patient who is awake, alert, pm1 and in no acute distress. Head/Face: Normocephalic, atraumatic. 09:02 Skin: Warm, dry with normal turgor. Normal color with no rashes, no lesions, and no evidence of cellulitis. MS/ Extremity: Pulses equal, no cyanosis. Neurovascular intact. Full, normal range of motion. 09:02 Eyes: Exam is negative for acute changes, Conjunctiva: no acute changes, no injection, Sclera: no acute changes, icterus, is not appreciated. 09:02 ENT: Exam is negative for acute changes, Mouth: Lips: normal, moist, Oral mucosa: normal, pink and intact, moist. 09:02 Chest/axilla: Palpation: tenderness, that is mild, of the anterior aspect of left upper chest and right breast, that totally reproduces the patient's complaints. 09:02 Cardiovascular: Rate: bradycardic, Rhythm: regular, Pulses: no pulse deficits are appreciated, Heart sounds: normal, normal S1and S2, Edema: is not appreciated. 09:02 Respiratory: Exam negative for acute changes, the patient does not display signs of respiratory distress, Breath sounds: are clear throughout. 09:02 Abdomen/GI: Inspection: abdomen appears normal, Palpation: abdomen is soft and non-tender, in all quadrants. 09:02 Neuro: Exam negative for acute changes, Orientation: is normal, Mentation: is normal, Motor: is normal, moves all fours. Vital Signs: 08:23 BP 114 / 84; Pulse 81; Resp 18; Temp 97.6; Pulse Ox 99% ; Weight 92.99 kg; Height 5 ft. ll1 5 in. (165.10 cm); Pain 7/10; 12:07 BP 124 / 72; Pulse 55; Resp 16; Pulse Ox 97% ; tc5 08:23 Body Mass Index 34.11 (92.99 kg, 165.10 cm) ll1 MDM: 08:36 Patient medically screened. pm1 11:04 Data reviewed: vital signs. Data interpreted: Pulse oximetry: on room air is 99 %. pm1 Interpretation: normal. Counseling: I had a detailed discussion with the patient and/or guardian regarding: the historical points, exam findings, and any diagnostic results supporting the discharge/admit diagnosis, lab results, radiology results, the need for outpatient follow up, to return to the emergency department if symptoms worsen or persist or if there are any questions or concerns that arise at home. 04/19 08:41 Order name: Basic Metabolic Panel; Complete Time: 09:36 pm1 04/19 08:41 Order name: CBC with Diff; Complete Time: 09:36 pm1 04/19 08:41 Order name: LFT's; Complete Time: 09:36 pm1 04/19 08:41 Order name: Magnesium; Complete Time: 09:36 pm1 04/19 08:41 Order name: NT PRO-BNP; Complete Time: 09:36 pm1 04/19 08:41 Order name: PT-INR; Complete Time: 09:36 pm1 04/19 08:41 Order name: Troponin (emerg Dept Use Only); Complete Time: 09:36 pm1 04/19 08:41 Order name: XRAY Chest (1 view); Complete Time: 10:21 pm1 04/19 08:41 Order name: TSH; Complete Time: 09:36 pm1 04/19 08:41 Order name: Flu pm1 04/19 09:06 Order name: SARS-COV-2 RT PCR; Complete Time: 10:21 EDMS 04/19 08:41 Order name: EKG; Complete Time: 08:41 pm1 04/19 08:41 Order name: Cardiac monitoring; Complete Time: 08:43 pm1 04/19 08:41 Order name: EKG - Nurse/Tech; Complete Time: 08:43 pm1 04/19 08:41 Order name: IV Saline Lock; Complete Time: 08:43 pm1 04/19 08:41 Order name: Labs collected and sent; Complete Time: 08:43 pm1 04/19 08:41 Order name: O2 Per Protocol; Complete Time: 08:43 pm1 04/19 08:41 Order name: O2 Sat Monitoring; Complete Time: 08:43 pm1 04/19 08:41 Order name: Urine Dipstick-Ancillary (obtain specimen) pm1 04/19 08:41 Order name: Urine Test (obtain specimen) pm1 Administered Medications: 11:46 Drug: Ketorolac 30 mg Route: IVP; Site: right antecubital; tc5 12:08 Follow up: Response: No adverse reaction tc5 11:46 Drug: Zofran (Ondansetron) 4 mg Route: IVP; Site: right antecubital; tc5 12:07 Follow up: BP 124 / 72; Pulse 55 bpm; Resp 16 bpm; Pulse Ox 97% tc5 Disposition: 17:32 Co-signature as Attending Physician, Kevin Vallejo MD I agree with the assessment and rn plan of care. Attestation: The patient's history, exam findings, diagnostics, and a summary of any interventions or procedures was reviewed in detail with David Lopez NP. Disposition Summary: 04/19/21 11:25 Discharge Ordered Location: Home pm1 Problem: new pm1 Symptoms: have improved pm1 Condition: Stable pm1 Diagnosis - Chest pain, unspecified pm1 - Vomiting pm1 - Diarrhea, unspecified pm1 Followup: pm1 - With: Emergency Department - When: As needed - Reason: Worsening of condition Followup: pm1 - With: Private Physician - When: 2 - 3 days - Reason: Recheck today's complaints, Continuance of care, Re-evaluation by your physician Discharge Instructions: - Discharge Summary Sheet pm1 - Food Choices to Help Relieve Diarrhea, Adult pm1 - Nonspecific Chest Pain, Adult pm1 - Diarrhea, Adult pm1 - Viral Gastroenteritis, Adult pm1 Forms: - Medication Reconciliation Form pm1 - Thank You Letter pm1 - Antibiotic Education pm1 - Prescription Opioid Use pm1 Prescriptions: - Zofran 4 mg Oral Tablet - take 1 tablet by ORAL route every 8 hours As needed; 20 tablet; Refills: 0, pm1 Product Selection Permitted Signatures: Dispatcher [employer] EDMS Kevin Vallejo MD MD rn Marinas, Patrick, NP SANDWICH AND DRINK CART OPERATOR pm1 Dayanara Aranda RN RN ll1 Gema Ludwig RN RN tc5 Corrections: (The following items were deleted from the chart) 09:06 08:41 CORONAVIRUS+ ordered. EDMS EDMS
[2021-04-19] MEDS ORDERED: ONDANSETRON 4 MG/2 ML VIAL ONE (12:10)
[2021-04-19] MEDS ORDERED: KETOROLAC 30 MG/ML INJ ONE (12:10)
[2021-04-19 12:41] VITALS: TEMP 97.6
[2021-04-19 12:42] VITALS: BP 124/72; O2SAT 97
== END 2021-04-19 12:33 | disposition home or self-care (01) ==
LOC: ER 08:14
DX: R07.9 Chest pain, unspecified (principal); R11.10 Vomiting, unspecified; R19.7 Diarrhea, unspecified; Z88.6 Allergy status to analgesic agent; Z88.0 Allergy status to penicillin; F17.210 Nicotine dependence, cigarettes, uncomplicated; Z20.822 Contact with and (suspected) exposure to COVID-19
CPT/HCPCS: 36415; 71045; 80048; 80076; 83735; 83880; 84443; 84484; 85025; 85610; 87804; 93005; 96374; 96375; 99284; J2405; U0003

== ENCOUNTER 2021-08-28 09:55 | Emergency (ER) | payer SELFPAY ==
--- OUTSIDE RECORDS SUMMARY | 2021-08-28 09:58 | XMS REPORT | Continuity of Care Document ---
:1975 Author Organization [facility] t Address [address] [place] [address] Care Team Providers Name Role Phone Ramesh PULIDO, N Attending Clinician AGUSTINA C Attending Clinician Unavailable Visit, Nurse Attending Clinician Unavailable Rolando PULIDO, R Attending Clinician Akinsipe WHCHANDLER, C Attending Clinician Payers Payer Name Policy Type Policy Number Effective Date Expiration Date S ource Advance Directives Directive Decision Effective Termination Comments Source Date Date Healthcare Agents on N/A [facility] FileNameRelationshipHealthcare [facility] Agent Medical RelationshipCommunicationPatty Branch [facility] Care [phone] (Mobile) Problems Condition Condition Condition Status Onset Resolution Last Treating Co mments Source Name Details Category Date Date Treatment Clinician Date Abnormalit Abnormalit Disease Active U nivers y of right y of right 604 [place] y of breast [place] mammogram mammogram Bran ch Right Right Disease Active Overview: Univer s ovarian ovarian 12-14 1.8 x 1.8 ity o f cyst cyst 00:00: x 2.1 cm [place] [id number] right Medical ovarian Branch hemorrhag ic cyst on 12/14/18 pelvic US Intramural Intramural Disease Active Overview : Univers leiomyoma leiomyoma - 1 x 0.8 ity of of uterus of uterus 00:00[place] 00 12/14/18 Medical pelvic US Branch Screen for Screen for Disease Active U nivers STD STD 5-29 ity of (sexually (sexually 00:[place] transmitte transmitte 00 Me dical d disease) d disease) Br anch BMI BMI Disease Active Univers 31.0-31.9, 31.0-31.9, - it y of adult adult 00:00: Medical Branch Positive Positive Disease Active Unive rs depression depression 12-08 it y of [place] S/P tubal S/P tubal Disease Active Uni vers ligation ligation 12-08 ity of 00:00: Medical Branch Trichomona Trichomona Disease Active U nivers l l 12-08 ity of vulvovagin vul[place]agin [place] Medical [place] Menorrhagi Menorrhagi Disease Active U nivers a with a with 12-08 ity of regular regular 00:00: cycle cycle Medical Branch Enlarged Enlarged Disease Active Unive rs uterus uterus 12-08 ity of 00:00: Medical Branch S/P tubal S/P tubal Disease Active Uni vers ligation ligation 12-08 ity of 00:00: [place] [facility] Menorrhagi Menorrhagi Disease Active U nivers a with a with 12-08 ity of regular regular 00:00: cycle cycle Medical Branch Allergies, Adverse Reactions, Alerts Allergy Allergy Status Severity Reaction(s) Onset Inactive Treating Comm ents Source Name Type Date Date Clinician Penicill Drug Active Hives Univers in Allergy 12-08 ity of 00:00: Medical Branch PENICILL DRUG Active Med Hives Univers IN INGREDI 12-08 ity of 00:00: [place] 00 Medical Branch Penicill Drug Active Hives Univers in Allergy 12-08 ity of 00:00: [place] 00 Medical Branch Amoxicil Propensi Active Hives Univer s alverto ty to - ity of adverse 00:00: [place] reaction 00 Medical s Branch AMOXICIL DRUG Active Hives Univers ALVERTO INGREDI - ity of 00:00: [place] 00 Medical Branch Hydrocod Propensi Active Nausea 2015-07 Univer s one-Acet ty to and/or 2-21 ity of aminophe adverse Vomiting 00:00: [place] n reaction 00 Medical s Branch HYDROCOD DRUG Active N/V 2015-07 Univers ONE-ACET 2-21 ity of AMINOPHE 00:00: [place] N 00 Medical Branch Codeine Propensi Active Rash 2007- Univers ty to 08-04 ity of adverse 00:00: [place] reaction 00 Medical s Branch CODEINE DRUG Active Rash Univers INGREDI - ity of 00:00: [place] 00 Medical Branch Social History Social Habit Start Date Stop Date Quantity Comments Source History of tobacco 1998-12-08 Cigarette Smoker University of use 00:00:00 [facility] Sex Assigned At Universit y of [facility] Cigarettes smoked 2019-04-19 2019-04-19 Univers ity of current (pack per 00:00:00 00:00:00 [facility] ) - Reported Branch Alcohol intake 2019-04-19 2019-04-19 Current drinker Unive rsity of 00:00:00 00:00:00 of alcohol [facility] [place] Tobacco use and 2019-04-19 2019-04-19 Never used Universit y of exposure 00:00:00 00:00:00 [facility] Alcohol Comment 2018-12-08 2018-12-08 ocassional Universit y of 00:00:00 00:00:00 [facility] Smoking Status Start Date Stop Date Source Current every day smoker 2019-04-19 00:00:00 Uni versity of [facility] Medications Ordered Filled Start Stop Current Ordering Indication Dosage Frequency Signature Comments Components Source Medication Medication Date Date Medication? Clinician (SIG) Name Name LOESTRIN 2019- No [id number] 1{tbl} Take 1 Univers (MICROGESTI 5-29 - tablet by it y of N FE 08/01) 00:00: 00:00 mouth [place] 1 mg-20 mcg 00 :00 daily. Medica l (21)/75 mg Branch (7) tablet LOESTRIN 2018- No [id number] 1{tbl} Take 1 Univers (MICROGESTI 5-29 -29 tablet by it y of N FE 08/01) 00:00: 00:00 mouth [place] 1 mg-20 mcg 00 :00 daily. Medica l (21)/75 mg Branch (7) tablet LOESTRIN 2019- No [id number] 1{tbl} Take 1 Univers (MICROGESTI 5-29 07- tablet by it y of N FE 08/01) 00:00: 00:00 mouth [place] 1 mg-20 mcg 00 :00 daily. Medica l (21)/75 mg Branch (7) tablet LOESTRIN FE 2019- No [id number] 1{tbl} Take 1 Univers (MICROGESTI 5-07 02- tablet by it y of N FE 08/01) 00:00: 00:00 mouth [place] 1 mg-20 mcg 00 :00 daily. Medica l (21)/75 mg Branch (7) tablet No known No Univers medications ity [facility] No known No Univers medications ity [facility] No known No Univers medications [facility] No known No Univers medications [facility] Vital Signs Vital Name Observation Time Observation Value Comments Source Systolic blood 2019-02-23 20:12:00 129 mm[Hg] Univer sity of [facility] Diastolic blood 2019-02-23 20:12:00 74 mm[Hg] Unive [facility] Heart rate 2019-02-23 20:12:00 57 /min Universi ty [facility] Body temperature 2019-02-23 20:12:00 36.11 Irka [facility] Respiratory rate 2019-02-23 20:12:00 16 /min [facility] Body height 2019-02-23 20:12:[address] [facility], Txi ty [facility] Body weight 2019-02-23 20:12:00 85.333 kg Universi ty [facility] BMI 2019-02-23 20:12:00 31.31 kg/m2 [facility], Txi ty [facility] Systolic blood 2019-02-07 20:37:00 116 mm[Hg] Univer sity [facility] Diastolic blood 2019-02-07 20:37:00 80 mm[facility]Hg[facility] 2019-02-07 20:32:00 36.44 Rika [facility] Respiratory rate 2019-02-07 20:32:00 16 /min [facility] Body height 2019-02-07 20:32:00 165.1 cm Universi ty [facility] Body weight 2019-02-07 20:32:00 85.276 kg [facility] BMI 2019-02-07 20:32:00 31.28 kg/m2 [facility] Procedures This patient has no known procedures. Encounters Start End Encounter Admission Attending Care Care Encounter Source Date/Time Date/Time Type Type Clinicians Facility Department ID 2020-09-24 2020-09-24 Outpatient R [facility] [id number] Univers 16:00:00 16:00:00 [id number] ity [facility] 2020-09-24 2020-09-24 Outpatient R [facility] [id number] Univers 16:00[facility] 2020-08-09 2020-08-09 [facility] [id number] Univers 00:00:00 00:00:00 Daniella Ballesteros AIR TWIST OPERATOR [id number] it y of REGIONAL [id number] Zac as MATERNAL [id number] Med ical & CHILD [address] [place] [address] 2020-07-17 2020-07-17 Outpatient R [facility] [id number] Univers 08:45:00 08:45:00 SHEBA [id number] nicolásy o [facility] 2020-07-17 2020-07-17 Outpatient R [facility] [id number] Univers 08:45:00 08:45:00 SHEBA monzony o [facility] 2020-07-12 2020-07-12 Telephone Ramesh [facility] [id number] Univers 00:00:00 00:00:00 Daniella Ballesteros AIR TWIST OPERATOR [id number] it y of [facility] [id number] Zac as MATERNAL [id number] Med ical & CHILD [address] [place] [address] 2019-02-23 2019-02-23 Nurse Visit, ShruthiRmchp Nurse [facility] [id number] Univers 14:57:22 15:24:24 Visit Casa Marshall AIR TWIST OPERATOR [id number] ity of REGIONAL [id number] [place] as MATERNAL [id number] Med ical & CHILD [address] [place] [address] 2019-02-08 2019-02-08 Nurse Visit, Mecca Nurse [facility] [id number] Univers 16:05:21 16:13:38 Visit Sheba Capone AIR TWIST OPERATOR [id number] 10 ity of [facility] [id number] Zac as MATERNAL [id number] [facility] & CHILD [address] [place] [address] 2019-02-07 2019-02-07 Office Rolando [facility] [id number] [facility] 14:48:45 16:29:10 Visit Casa Hurt AIR TWIST OPERATOR [id number] ity of [facility] [id number] Zac as MATERNAL [id number] [facility] & CHILD [address] [place] [address] Results This patient has no known results.
[2021-08-28] MEDS ORDERED: METHYLPREDNISOLONE 125 MG INJ ONE (10:24)
[2021-08-28] MEDS ORDERED: METHOCARBAMOL 1,000 MG/10 ML VIAL IV ONE (10:24)
[2021-08-28] MEDS ORDERED: KETOROLAC 30 MG/ML INJ ONE (10:24)
[2021-08-28] MEDS ORDERED: NA CHLORIDE 0.9% 100 ML IV ONE (10:25)
[2021-08-28 10:28] LABS: Absolute Lymphocytes (CBC) 1.3 K/uL (0.7-4.9); Lymphocytes % 31.4 % (15.3-44.8); MPV 8.6 fL (7.6-11.3); RBC Red Blood Cell Count 3.77 M/uL (3.86-4.86)
[2021-08-28 10:30] LABS: Protime INR 0.87
[2021-08-28 11:04] LABS: Bilirubin Direct 0.1 mg/dL (0-0.2); Bilirubin Total 0.3 mg/dL (0.2-1.0); Magnesium 2.4 mg/dL (1.8-2.4); Potassium 4.2 mmol/L (3.5-5.1); Protein, Total 6.2 g/dL (6.4-8.2); Troponin High Sensitivity 5.4 pg/mL (<58.9)
--- NOTE | 2021-08-28 11:11 | RAD REPORT ---
EXAM DESCRIPTION: [place] Single View08/28/2021 10:49 am CLINICAL HISTORY: Chest pain COMPARISON: 2020 FINDINGS: The lungs appear clear of acute infiltrate. The heart is normal size IMPRESSION: No acute abnormalities displayed
--- NOTE | 2021-08-28 11:46 | RAD REPORT ---
EXAM DESCRIPTION: CT - C Spine Wo Con - 08/28/2021 10:38 am CLINICAL HISTORY: Numbness and radiculopathy COMPARISON: None. TECHNIQUE: Computed axial tomography of the cervical spine were obtained with sagittal and coronal r econstruction images generated and reviewed. All CT scans are performed using dose optimization technique as appropriate and may include automated exposure control or mA/KV adjustment according to patient size. FINDINGS: A cervical fracture is not seen. Congenital nonunion posterior elements C1 No dislocation Disc bulge and osteophytes C6-7. Disc space narrowing. Mild to moderate narrowing of the neural nolvia ramon bilaterally. The thecal sac measures approximately 7.5 millimeters Spondylosis C5-6 results in mild narrowing left neural foramina IMPRESSION: A cervical fracture is not seen. Spondylosis most marked C6-7 resulting in mild to moderate central and bilateral foraminal stenosis. If the patient continues have symptoms to suggest spinal cord/spinal canal pathology then MRI would b e recommended.
[2021-08-28] MEDS ORDERED: MORPHINE 4 MG/ML SYR ONE ×2 (12:46→19:25)
--- NOTE | 2021-08-28 14:20 | RAD REPORT ---
EXAM DESCRIPTION: MRI - C Spine Wo Cont - 08/28/2021 2:08 pm CLINICAL HISTORY: arm numbness COMPARISON: C Spine Wo Con dated 08/28/2021 TECHNIQUE: Sagittal T1-weighted, T2-weighted and T2-STIR sequences were obtained as well as axial T2 medic sequence obtained. FINDINGS: Endplate edema is present at the C5-6 and C6-7 levels. No fractures identified. Loss of th e normal cervical lordosis. Trace anterolisthesis of C4 on C5. Cerebellar tonsils and mid-line skull base show no suspicious finding. No significant finding at the C1 and C2 levels. C2-3 level: No significant findings. C3-4 level: Uncovertebral joint hypertrophy results in mild right neural foraminal narrowing. The lef t neural foramen is adequate. No central spinal stenosis. C4-5 level: No significant findings. C5-6 level: Posterior disc osteophyte complex with uncovertebral joint hypertrophy that is left eccen tric is present. This results in moderate left and mild right neural foraminal narrowing. No signific ant central spinal stenosis. C6-C7: Posterior disc osteophyte complex with uncovertebral joint hypertrophy results in severe bilat eral neural foraminal narrowing. Central spinal stenosis is mild to moderate. No cord signal abnormal ity. C7-T1 level: No significant findings. Cervical cord shows no focal narrowing, expansion or signal abnormality. IMPRESSION: Multilevel cervical spondylosis. The findings are most advanced at C5-6 and C6-7. With r egard to a left-sided radiculopathy, C5-6 has moderate left neural foraminal narrowing and C6-7 has s evere left neural foraminal narrowing. Either of these levels could be the culprit location. Mild to moderate central spinal stenosis is noted at C6-7.
--- NOTE | 2021-08-28 17:11 | ER ---
Nurse's Notes [facility] Name: Anne Marie Dubon Age: 46 yrs Sex: Female : 1975 Arrival Date: 08/28/2021 Time: 09:58 Bed 5 Private MD: Diagnosis: Cervical disc disorder with radiculopathy;Weakness-Right upper extremity Presentation: 08/28 10:00 Chief complaint: Patient states: chest pain, left arm pain X1 week radiating up to the jg9 shoulder and into the r chest, denied any recent injury or new bedding, no cardiac Hx reported, sob reported. Coronavirus screen: Vaccine status: Patient reports being unvaccinated. Ebola Screen: Patient negative for fever greater than or equal to 101.5 degrees Fahrenheit, and additional compatible Ebola Virus Disease symptoms Patient denies exposure to infectious person. Patient denies travel to an Ebola-affected area in the 21 days before illness onset. Initial Sepsis Screen: Does the patient meet any 2 criteria? No. Patient's initial sepsis screen is negative. Does the patient have a suspected source of infection? No. Patient's initial sepsis screen is negative. Risk Assessment: Do you want to hurt yourself or someone else? Patient reports no desire to harm self or others. Note 1 week ago. 10:00 Method Of Arrival: Ambulatory jg9 10:00 Acuity: JULIA 3 jg9 19:28 Onset of symptoms was August 28, 2021. jd3 Triage Assessment: 10:00 General: Appears uncomfortable, Behavior is calm. Pain: Complains of pain in chest, jg9 left arm and left hand. Neuro: Reports numbness in left hand and left arm paresthesias. Cardiovascular: Rhythm is sinus bradycardia Chest pain is described as Pain is 7 out of 10 on a pain scale. Historical: - Allergies: 10:23 Codeine; jg9 10:23 Hydrocodone-Acetaminophen; jg9 10:23 PENICILLINS; jg9 - PSHx: 10:23 Cholecystectomy; tubal ; jg9 - Immunization history:: Client reports having NOT received the Covid vaccine. Pneumococcal vaccine is not up to date, Flu vaccine is up to date. - Social history:: Smoking status: Patient reports the use of cigarette tobacco products, smokes one-half pack cigarettes per day. Screenin:00 Abuse screen: Denies threats or abuse. Denies injuries from another. Nutritional jg9 screening: No deficits noted. Tuberculosis screening: No symptoms or risk factors identified. Fall Risk None identified. Assessment: 10:25 Pain: Pain radiates to chest Pain began 2-3 days ago. jg9 10:37 General: Appears uncomfortable, Behavior is calm, cooperative. Pain: Complains of pain ww in chest and left arm Pain radiates to base of the skull and chest. Neuro: Level of Consciousness is awake, alert, obeys commands, Oriented to person, place, time, situation, Agriculture Engineer are equal bilaterally Moves all extremities. Speech is normal, Tingling in left arm. Cardiovascular: Capillary refill < 3 seconds Patient's skin is warm and dry. Respiratory: Airway is patent Respiratory effort is even, unlabored, Respiratory pattern is regular, symmetrical. GI: No signs and/or symptoms were reported involving the gastrointestinal system. : No signs and/or symptoms were reported regarding the genitourinary system. Derm: Skin is intact, is healthy with good turgor, Skin is pink, warm \T\ dry. Musculoskeletal: Reports weakness in left arm numbness in left arm pain in left arm. 11:35 Reassessment: Patient appears in no apparent distress at this time. No changes from previously documented assessment. Patient and/or family updated on plan of care and expected duration. Pain level reassessed. Patient is alert, oriented x 3, equal unlabored respirations, skin warm/dry/pink. 12:00 Reassessment: No changes from previously documented assessment. ke1 12:01 Reassessment: Patient appears in no apparent distress at this time. No changes from ww previously documented assessment. Patient and/or family updated on plan of care and expected duration. Pain level reassessed. Patient is alert, oriented x 3, equal unlabored respirations, skin warm/dry/pink. 13:23 Reassessment: Patient appears in no apparent distress at this time. No changes from previously documented assessment. Patient and/or family updated on plan of care and expected duration. Pain level reassessed. 14:32 Reassessment: Patient appears in no apparent distress at this time. Patient and/or jd3 family updated on plan of care and expected duration. Pain level reassessed. Patient is alert, oriented x 3, equal unlabored respirations, skin warm/dry/pink. 15:39 Reassessment: Patient appears in no apparent distress at this time. No changes from ww previously documented assessment. Patient and/or family updated on plan of care and expected duration. Pain level reassessed. Patient is alert, oriented x 3, equal unlabored respirations, skin warm/dry/pink. 19:27 Reassessment: Patient appears in no apparent distress at this time. Patient and/or jd3 family updated on plan of care and expected duration. Pain level reassessed. Patient is alert, oriented x 3, equal unlabored respirations, skin warm/dry/pink. Vital Signs: 10:00 BP 118 / 72 LA; Pulse 51 LA; Resp 17; Temp 97.5; Pulse Ox 99% on R/A; Weight 88 kg (R); jg9 Height 5 ft. 5 in. (165.10 cm) (R); 11:45 BP 110 / 60; Pulse 51; Resp 17; Pulse Ox 100% ; ww 12:30 BP 115 / 70; Pulse 55; Resp 14; Pulse Ox 100% ; ww 13:23 BP 117 / 69; Pulse 49; Resp 16; Pulse Ox 97% ; ww 14:32 BP 115 / 76; Pulse 48; Resp 16 S; Pulse Ox 98% on R/A; jd3 15:39 BP 111 / 65; Pulse 49; Resp 16; Pulse Ox 99% on R/A; ww 16:54 BP 119 / 73; Pulse 55; Resp 18; Pulse Ox 99% on R/A; ld1 19:27 BP 108 / 60; Pulse 55; Resp 17 S; Pulse Ox 99% on R/A; jd3 10:00 Body Mass Index 32.28 (88.00 kg, 165.10 cm) jg9 ED Course: 09:58 Patient arrived in ED. mr 09:59 Octavio Short MD is Attending Physician. kdr 10:21 Noé Squires RN is Primary Nurse. jd3 10:23 Triage completed. jg9 10:25 Basic Metabolic Panel Sent. ww 10:25 LFT's Sent. ww 10:25 Arm band placed on right wrist. jg9 10:25 Patient has correct armband on for positive identification. Bed in low position. Call jg9 light in reach. Side rails up X 1. traffic monitor specialist on. 10:26 Patient maintains SpO2 saturation greater than 95% on room air. jg9 10:37 CT C Spine In Process Unspecified. EDMS 10:37 Inserted saline lock: 20 gauge in right antecubital area, using aseptic technique. ww 10:49 XRAY Chest (1 view) In Process Unspecified. EDMS 13:54 C Spine Wo Cont In Process Unspecified. EDMS 15:05 [facility], pt was denied due to no beds at this time, bd per JJ. 15:19 initiated transfer to [facility], pt denied at [facility] due to being on transfer bd closure. 16:57 initiated transfer to [facility]. bd 17:11 pt accepted in transfer to [facility] by dr Rueda, admin approval given by Malorie Echeverria. 19:28 No provider procedures requiring assistance completed. Patient transferred, IV remains jd3 in place. Administered Medications: 10:39 Drug: Ketorolac 15 mg Route: IVP; Site: right antecubital; ww 11:30 Follow up: Response: No adverse reaction jd3 10:39 Drug: SOLU-Medrol (methylPrednisoLONE) 125 mg Route: IVP; Site: right antecubital; ww 11:30 Follow up: Response: No adverse reaction jd3 10:40 Drug: Robaxin (methocarbamol) 1 grams Route: IVPB; Infused Over: 1 hrs; Site: right ww antecubital; 11:59 Follow up: IV Status: Completed infusion ke1 12:44 Not Given (Allergic , notifiedd): [place] (HYDROcodone-acetaminophen) 10 mg-325 mg 1 ke1 tabs PO once; RASS on ADMIN: Combtv4, Very Agttd3, Agttd2, Rstlss1, AlertClm0, Drwsy-1, Lt Sdtn-2, Mod Sdtn-3, Dp Sdtn-4, UnArsble-5 12:48 Drug: morphine 4 mg Route: IVP; Site: right antecubital; ke1 13:40 Follow up: Response: No adverse reaction; RASS: Alert and Calm (0) jd3 19:25 Drug: morphine 4 mg Route: IVP; Site: right antecubital; jd3 19:26 Follow up: Response: No adverse reaction; RASS: Alert and Calm (0) jd3 Outcome: 17:10 ER care complete, transfer ordered by . kdr 19:28 Transferred by ground EMS to [facility], Transfer form jd3 completed. X-rays sent w/ patient. 19:28 Condition: stable 19:28 Instructed on the need for transfer. 19:28 Patient left the ED. jd3 Signatures: Dispatcher [employer] EDMS Sabiha Ott Kevin, MD MD kdr BorgesJessica mr Squires, Noé, RN RN jd3 Malorie Burgess RN RN ld1 Felipa Barnes RN RN jg9 Racquel Gamez RN RN ww Mela Fuchs RN RN ke1 Corrections: (The following items were deleted from the chart) 16:16 15:38 paiged ortho spine surgeon, Dr Rehan Xiong II, md. bd bd
--- NOTE | 2021-08-28 17:11 | EDPHYS ---
Physician Documentation [facility] Name: Anne Marie Dubon Age: 46 yrs Sex: Female : 1975 Arrival Date: 08/28/2021 Time: 09:58 Bed 5 Private MD: ED Physician Octavio Short HPI: 08/29 16:01 This 46 yrs old Female presents to ER via Ambulatory with complaints of Chest Pain, kdr Numbness Of Arm, Arm Pain. 16:01 The patient or guardian reports chest pain that is located primarily in the anterior kdr chest wall, left. Onset: gradually, 1 week(s) ago. The pain radiates to Associated signs and symptoms: The patient has no apparent associated signs or symptoms. The chest pain is described as aching, burning. Duration: The patient or guardian reports multiple episodes, that wax and wane, with no pattern. Modifying factors: The symptoms are alleviated by remaining still, rest, the symptoms are aggravated by exertion, palpation of area, twisting torso. Severity of pain: At its worst the pain was mild moderate in the emergency department the pain is unchanged. Patient has had chest pain and left arm pain for 1 week. It radiates up to her shoulder. She also has right chest pain. She denies any current or recent injury. She has no prior cardiac history or associated shortness of breath. Historical: - Allergies: 08/28 10:23 Codeine; jg9 10:23 Hydrocodone-Acetaminophen; jg9 10:23 PENICILLINS; jg9 - PSHx: 10:23 Cholecystectomy; tubal ; jg9 - Immunization history:: Client reports having NOT received the Covid vaccine. Pneumococcal vaccine is not up to date, Flu vaccine is up to date. - Social history:: Smoking status: Patient reports the use of cigarette tobacco products, smokes one-half pack cigarettes per day. ROS: 08/29 16:01 Constitutional: Negative for fever, chills, and weight loss, Eyes: Negative for injury, kdr pain, redness, and discharge, ENT: Negative for injury, pain, and discharge, Neck: Negative for injury, pain, and swelling, Respiratory: Negative for shortness of breath, cough, wheezing, and pleuritic chest pain, Abdomen/GI: Negative for abdominal pain, nausea, vomiting, diarrhea, and constipation, Back: Negative for injury and pain, : Negative for injury, bleeding, discharge, and swelling, MS/Extremity: Negative for injury and deformity, Skin: Negative for injury, rash, and discoloration, Neuro: Negative for headache, weakness, numbness, tingling, and seizure activity. Psych: Negative for depression, anxiety, suicide ideation, homicidal ideation, and hallucinations, Allergy/Immunology: Negative for hives, rash, and allergies, Endocrine: Negative for neck swelling, polydipsia, polyuria, polyphagia, and marked weight changes, Hematologic/Lymphatic: Negative for swollen nodes, abnormal bleeding, and unusual bruising. Cardiovascular: Positive for chest pain, Negative for edema, orthopnea, palpitations, paroxysmal nocturnal dyspnea. Respiratory: Positive for cough, dyspnea on exertion, hemoptysis, shortness of breath. Exam: 08/28 10:19 ECG was reviewed by the Attending Physician. kdr 08/29 16:01 Constitutional: This is a well developed, well nourished patient who is awake, alert, kdr and in no acute distress. Head/Face: Normocephalic, atraumatic. Eyes: Pupils equal round and reactive to light, extra-ocular motions intact. Lids and lashes normal. Conjunctiva and sclera are non-icteric and not injected. Cornea within normal limits. Periorbital areas with no swelling, redness, or edema. Neck: Trachea midline, no thyromegaly or masses palpated, and no cervical lymphadenopathy. Supple, full range of motion without nuchal rigidity, or vertebral point tenderness. No Meningismus. Chest/axilla: Normal chest wall appearance and motion. Nontender with no deformity. No lesions are appreciated. Cardiovascular: Regular rate and rhythm with a normal S1 and S2. No gallops, murmurs, or rubs. Normal PMI, no JVD. No pulse deficits. Respiratory: Lungs have equal breath sounds bilaterally, clear to auscultation and percussion. No rales, rhonchi or wheezes noted. No increased work of breathing, no retractions or nasal flaring. Abdomen/GI: Soft, non-tender, with normal bowel sounds. No distension or tympany. No guarding or rebound. No evidence of tenderness throughout. Back: No spinal tenderness. No costovertebral tenderness. Full range of motion. Skin: Warm, dry with normal turgor. Normal color with no rashes, no lesions, and no evidence of cellulitis. MS/ Extremity: Pulses equal, no cyanosis. Neurovascular intact. Full, normal range of motion. Neuro: Awake and alert, GCS 15, oriented to person, place, time, and situation. Cranial nerves II-XII grossly intact. Motor strength 5/5 in all extremities. Sensory grossly intact. Cerebellar exam normal. Normal gait. Psych: Awake, alert, with orientation to person, place and time. Behavior, mood, and affect are within normal limits. Vital Signs: 08/28 10:00 BP 118 / 72 LA; Pulse 51 LA; Resp 17; Temp 97.5; Pulse Ox 99% on R/A; Weight 88 kg (R); jg9 Height 5 ft. 5 in. (165.10 cm) (R); 11:45 BP 110 / 60; Pulse 51; Resp 17; Pulse Ox 100% ; ww 12:30 BP 115 / 70; Pulse 55; Resp 14; Pulse Ox 100% ; ww 13:23 BP 117 / 69; Pulse 49; Resp 16; Pulse Ox 97% ; ww 14:32 BP 115 / 76; Pulse 48; Resp 16 S; Pulse Ox 98% on R/A; jd3 15:39 BP 111 / 65; Pulse 49; Resp 16; Pulse Ox 99% on R/A; ww 16:54 BP 119 / 73; Pulse 55; Resp 18; Pulse Ox 99% on R/A; ld1 19:27 BP 108 / 60; Pulse 55; Resp 17 S; Pulse Ox 99% on R/A; jd3 10:00 Body Mass Index 32.28 (88.00 kg, 165.10 cm) 9 MDM: 17:10 Patient medically screened. [facility] 08/29 16:01 Data reviewed: vital signs, nurses notes, lab test result(s), EKG, radiologic studies. [facility] 08/28 10:11 Order name: Basic Metabolic Panel [facility] 08/28 10:11 Order name: CBC with Diff; Complete Time: 12:10 [facility] 08/28 10:11 Order name: LFT's [facility] 08/28 10:11 Order name: Magnesium; Complete Time: 12:10 [facility] 08/28 10:11 Order name: NT PRO-BNP; Complete Time: 12:10 [facility] 08/28 10:11 Order name: PT-INR; Complete Time: 12:10 kdr 08/28 10:11 Order name: Troponin HS; Complete Time: 12:10 kdr 02 10:11 Order name: XRAY Chest (1 view); Complete Time: 12:10 kdr 02 10:11 Order name: Basic Metabolic Panel; Complete Time: 12:10 EDMS 02 10:11 Order name: Liver (Hepatic) Function; Complete Time: 12:10 EDMS 02 10:17 Order name: CT C Spine; Complete Time: 12:10 kdr 02 12:20 Order name: C Spine Wo Cont; Complete Time: 14:34 EDMS 02 15:03 Order name: COVID-19 SARS RT PCR (Document "Date of Onset" if Symptomatic); Complete bd Time: 17:08/28 10:11 Order name: EKG; Complete Time: 10:12 kdr 08/28 10:11 Order name: Cardiac monitoring; Complete Time: 10: kdr 08/28 10:11 Order name: EKG - Nurse/Tech; Complete Time: : kdr 08/28 10:11 Order name: IV Saline Lock; Complete Time: : kdr 08/28 10:11 Order name: Labs collected and sent; Complete Time: : kdr 08/28 10:11 Order name: O2 Per Protocol; Complete Time: : kdr 08/28 10:11 Order name: O2 Sat Monitoring; Complete Time: :23 kdr EC/16 10:19 Rate is 56 beats/min. Rhythm is regular, Sinus bradycardia with No ectopy. QRS [place] is kdr Normal. [place] interval is normal. QRS interval is normal. QT interval is normal. Clinical impression: NSR w/ Non-specific ST/T Changes and Sinus bradycardia. Administered Medications: 10:39 Drug: Ketorolac 15 mg Route: IVP; Site: right antecubital; ww 11:30 Follow up: Response: No adverse reaction jd3 10:39 Drug: SOLU-Medrol (methylPrednisoLONE) 125 mg Route: IVP; Site: right antecubital; ww 11:30 Follow up: Response: No adverse reaction jd3 10:40 Drug: Robaxin (methocarbamol) 1 grams Route: IVPB; Infused Over: 1 hrs; Site: right ww antecubital; 11:59 Follow up: IV Status: Completed infusion ke1 12:44 Not Given (Allergic , notifiedd): [place] (HYDROcodone-acetaminophen) 10 mg-325 mg 1 ke1 tabs PO once; RASS on ADMIN: Combtv4, Very Agttd3, Agttd2, Rstlss1, AlertClm0, Drwsy-1, Lt Sdtn-2, Mod Sdtn-3, Dp Sdtn-4, UnArsble-5 12:48 Drug: morphine 4 mg Route: IVP; Site: right antecubital; ke1 13:40 Follow up: Response: No adverse reaction; RASS: Alert and Calm (0) jd3 19:25 Drug: morphine 4 mg Route: IVP; Site: right antecubital; jd3 19:26 Follow up: Response: No adverse reaction; RASS: Alert and Calm (0) jd3 Disposition Summary: 08/28/21 17:10 Transfer Ordered Transfer Location: [facility] kdr Reason: Higher level of care kdr Condition: Fair kdr Problem: new kdr Symptoms: have improved kdr Accepting Physician: [facility] Neuro(08/28/21 19:28) jd3 Diagnosis - Cervical disc disorder with radiculopathy kdr - Weakness - Right upper extremity(08/28/21 17:11) kdr Forms: - Medication Reconciliation Form kdr - SBAR form kdr Signatures: Dispatcher [employer] Octavio Harrison MD MD kdr Noé Squires RN RN jFelipa Colon RN RN jg9 Racquel Gamez RN RN ww Ebrottie, Kouassi, RN RN ke1 Corrections: (The following items were deleted from the chart) 17:10 17:10 [facility] Neuro kdr kdr 17:11 17:10 [facility] Neuro kdr kdr 17:11 17:10 Weakness kdr kdr 19:28 17:11 [facility] Neuro kdr jd3
[2021-08-28 20:19] VITALS: TEMP 97.5
[2021-08-28 20:25] VITALS: O2SAT 99
[2021-08-28 20:28] VITALS: BP 108/60
== END 2021-08-28 19:28 | disposition short-term general hospital (02) ==
LOC: ER 09:55
DX: M50.10 Cervical disc disorder with radiculopathy, unspecified cervical region (principal); Z88.0 Allergy status to penicillin; Z88.5 Allergy status to narcotic agent
CPT/HCPCS: 36415; 71045; 72125; 72141; 80048; 80076; 83735; 83880; 84484; 85025; 85610; 93005; J2800; J2930; U0003

== ENCOUNTER 2021-11-19 21:08 | Emergency (ER) | payer SELFPAY ==
--- OUTSIDE RECORDS SUMMARY | 2021-11-19 21:12 | XMS REPORT | Continuity of Care Document ---
:1975 Author Organization Formerly [facility] t Address [address] [place] [address] Care Team Providers Name Role Phone LAURO PEREZ Primary Care Physician Unavailable KERLINE Attending Clinician Unavailable KERLINE Attending Clinician Unavailable BANG Attending Clinician Unavailable Bang Mcdonnell MD Attending Clinician Doctor Unassigned, Name Attending Clinician Unavailable Ramesh GROUTMAN, N Attending Clinician LIBORIO C Attending Clinician Unavailable Visit, Nurse Attending Clinician Unavailable Rolando MENDOSAP, R Attending Clinician Liborio PATHAK, C Attending Clinician KERLINE Admitting Clinician Unavailable Payers Payer Name Policy Type Policy Number Effective Date Expiration Date S ource Advance Directives Directive Decision Effective Termination Comments Source Date Date Healthcare Agents on N/A NPI: 1831 FileNameRelationMari[facility] Osteopathic Clinicealthcare [id number] Agent RelationshipCommunicationPatty [facility] Care [phone] (Mobile) Problems Condition Condition Condition Status Onset Resolution Last Treating Co mments Source Name Details Category Date Date Treatment Clinician Date Cervical Cervical Disease Active NPI:1 83 stenosis stenosis 2-16 804889 1 of spine of spine 00:00: 00 Abnormalit Abnormalit Disease Active N PI:183 y of right y of right 604 13 37166 breast on breast on 00:00: screening screening 00 mammogram mammogram Right Right Disease Active Overview: NPI:18 3 ovarian ovarian 6-04 [place] 51800 81 cyst cyst 00:00: g of this 00 note might be different from the original. 1.8 x 1.8 x 2.1 cm right ovarian hemorrhag ic cyst on 12/14/18 pelvic US Intramural Intramural Disease Active Overview : NPI:183 leiomyoma leiomyoma 6-04 Formatt[place] 1 318536 of uterus of uterus 00:00: g of this 00 note might be different from the original. 1 x 0.8 cm on 12/14/18 pelvic US Screen for Screen for Disease Active N PI:183 STD STD 12-08 5092245 (sexually (sexually 00:00: transmitte transmitte 00 d disease) d disease) BMI BMI Disease Active NPI:183 31.0-31.9, 31.0-31.9, 12-08 13 12811 adult adult 00:00: 00 Positive Positive Disease Active NPI:1 83 depression depression 12-08 13 42094 screening screening 00:00: 00 S/P tubal S/P tubal Disease Active NPI :183 ligation ligation 12-08 023292 1 00:00: 00 Trichomona Trichomona Disease Active N PI:183 l l 12-08 4418903 vulvovagin vulvovagin 00:00: itis itis 00 Menorrhagi Menorrhagi Disease Active N PI:183 a with a with 12-08 0330884 regular regular 00:00: cycle cycle 00 Enlarged Enlarged Disease Active NPI:1 83 uterus uterus 12-08 5572056 00:00: 00 S/P tubal S/P tubal Disease Active NPI :183 ligation ligation 12-08 765278 1 00:00: 00 Menorrhagi Menorrhagi Disease Active N PI:183 a with a with 12-08 0312693 regular regular 00:00: cycle cycle 00 Allergies, Adverse Reactions, Alerts Allergy Allergy Status Severity Reaction(s) Onset Inactive Treating Comm ents Source Name Type Date Date Clinician Penicill Drug Active Hives NPI:183 in Allergy 12-08 0886928 00:00: 00 PENICILL DRUG Active Med Hives NPI:183 IN INGREDI 12-08 1900763 00:00: 00 Penicill Drug Active Hives NPI:183 in Allergy 12-08 5710249 00:00: 00 Amoxicil Propensi Active Hives NPI:18 3 alverto ty to 08-04 8997087 adverse 00:00: reaction 00 s AMOXICIL DRUG Active Hives NPI:183 ALVERTO INGREDI 08-04 8506240 00:00: 00 Hydrocod Propensi Active Nausea 2015-07 NPI:18 3 one-Acet ty to and/or 2- 8618214 aminophe adverse Vomiting 00:00: n reaction 00 s HYDROCOD DRUG Active N/V 2015-07 NPI:183 ONE-ACET 2- 2532179 AMINOPHE 00:00: N 00 Codeine Propensi Active Rash NPI:183 ty to 08-04 5386729 adverse 00:00: reaction 00 s CODEINE DRUG Active Rash NPI:183 INGREDI 08-04 8577759 00:00: 00 Social History Social Habit Start Date Stop Date Quantity Comments Source History of tobacco 1998-12-08 Cigarette Smoker use 00:00:00 History SDOH NPI:[id number] Alcohol Frequency History SDOH NPI:[id number] 81 Alcohol Std Drinks History SDOH NPI:[id number] 81 Alcohol Binge Exposure to Not sure NPI:[id number] 1 SARS-CoV-2 (event) Alcohol intake 2021-08-28 2021-08-28 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 I:[id number] 00:00:00 00:00:00 alcohol (finding) Cigarettes smoked 2018-12-08 2018-12-08 NPI:673 [id number] current (pack per 00:00:00 00:00:00 day) - Reported Alcohol Comment 2018-12-08 2018-12-08 ocassional NPI:00917 [id number] 00:00:00 00:00:00 Tobacco use and 2018-12-08 2018-12-08 Never used NPI:93506 91305 exposure 00:00:00 00:00:00 Sex [birth year] At [birth year] NPI:84892 39042 00:00:00 00:00:00 Smoking Status Start Date Stop Date Source Current every day smoker 2018-12-08 00:00:00 NPI :[id number] Medications Ordered Filled Start Stop Current Ordering Indication Dosage Frequency Signature Comments Components Source Medication Medication Date Date Medication? Clinician (SIG) Name Name FENTanyl PF 2021- No 25ug 25 mcg, [employer]PER[employer] I:183 (SUBL[place]AZE 08-[place] [address] 81 (PF)) 17:30: 16:24 Push, injection 00 :00 ONCE, 1 25 mcg dose, On Thu08/29/21 at 1130, Routine famotidine Yes 20mg 20 mg, NPI:1 83 (PEPCID AC) 2-17 Oral, BID, 13 28604 tablet 20 14:00: First dose mg 00 on Thu08/29/21 at 0800, Until Discontinu ed, Routine docusate Yes 100mg 100 mg, NPI:1 83 (COLACE) 2-17 Oral, BID, 14455 81 capsule 100 14:00: First dose mg 00 on Thu08/29/21 at 0800, Until Discontinu ed, Routine gabapentin Yes 300mg 300 mg, NPI :183 (NEURONTIN) 2-17 Oral, TID, 13 85258 capsule 300 14:00: First dose mg 00 on Thu08/29/21 at 0800, Until Discontinu ed, Routine traMADoL Yes 50mg 50 mg, NPI:183 (ULTRAM) -17 Oral, [id number] tablet 50 03:35: Q6HPRN, mg 17 Starting on Thu08/28/21 at 2135, Until Discontinu ed, Routine, Pain (scale 4-6) acetaminoph Yes 325mg 325 mg, [employer] OPER[employer] I:183 en -17 Oral, [id number] (TYLENOL) 03:35: Q6HPRN, tablet 325 11 Starting mg on Thu08/28/21 at 2135, Until Discontinu ed, Routine, Pain (scale 1-3) bisacodyL Yes 10mg 10 mg, NPI:18 3 (DULCOLAX) 2-17 Rectal, 460915 1 suppository 03:32: QHSPRN, 10 mg 01 Starting on Thu08/28/21 at 2132, Until Discontinu ed, Routine, Constipati on NaCl 0.9% Yes 5mL 5 mL, 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 follow package directions methylPREDN Yes [id number] Take by NPI:183 ISolone 4 2-17 mouth [id number] mg tablets 00:00: SEE-INSTRU 00 CTIONS. follow package directions methylPREDN 0 Yes [id number] Take by NPI:183 ISolone 4 2-17 mouth [id number] mg tablets 00:00: SEE-INSTRU 00 CTIONS. follow package directions methylPREDN Yes [id number] Take by NPI:183 ISolone 4 2-17 mouth [id number] mg tablets 00:00: SEE-INSTRU 00 CTIONS. follow package directions gabapentin 2021- Yes [id number] 300mg Take 1 NPI:183 300 mg 2-17 03-20 capsule by [id number] 1 capsule 00:00: 04:59 mouth 3 00 :00 (three) times daily for 30 days. gabapentin 2021- Yes [id number] 300mg Take 1 NPI:183 300 mg 2-17 03-20 capsule by [id number] 1 capsule 00:00: 04:59 mouth 3 00 :00 (three) times daily for 30 days. gabapentin 2021- Yes [id number] 300mg Take 1 NPI:183 300 mg 2-17 03-20 capsule by [id number] 1 capsule 00:00: 04:59 mouth 3 00 :00 (three) times daily for 30 days. LOESTRIN 2019- No [id number] 1{tbl} Take 1 NPI:183 (MICROGESTI 12-08- tablet by 13 13025 N 08/01) 00:00: 00:00 mouth 1 mg-20 mcg 00 :00 daily. (21)/75 mg (7) tablet LOESTRIN 2019- No [id number] 1{tbl} Take 1 NPI:183 (MICROGESTI 5-29 07-[place] [id number] N FE 08/01) 00:00: 00:00 mouth 1 mg-20 mcg 00 :00 daily. (21)/75 mg (7) tablet LOESTRIN 2018- No [id number] 1{tbl} Take 1 NPI:183 (MICROGESTI 5-29 -[place] [id number] N FE 08/01) 00:00: 00:00 mouth 1 mg-20 mcg 00 :00 daily. (21)/75 mg (7) tablet LOESTRIN 2018- No [id number] 1{tbl} Take 1 NPI:183 (MICROGESTI 5-29 -[place] [address] N FE 08/01) 00:00: 00:00 mouth 1 mg-20 mcg 00 :00 daily. (21)/75 mg (7) tablet No known No NPI:183 medications [id number] No known No NPI:183 medications [id number] No known No NPI:183 medications [id number] No known No NPI:183 medications [id number] Vital Signs Vital Name Observation Time Observation Value Comments Source Systolic blood pressure 2021-08-29 18:00:00 107 mm[Hg] Diastolic blood 2021-08-29 18:00:00 58 mm[Hg] NPI:1 [id number] pressure Heart rate 2021-08-29 18:00:00 61 /min NPI:1831 843922 Body temperature 2021-08-29 18:00:00 36.44 Rika Respiratory rate 2021-08-29 18:00:00 20 /min Oxygen saturation in 2021-08-29 18:00:00 100 /min Arterial blood by Pulse oximetry Body height 2021-08-29 03:37:00 165.1 cm NPI:1831 255390 Body weight 2021-08-29 01:00:00 86.183 kg NPI:1831 406626 BMI 2021-08-29 01:00:00 31.62 kg/m2 NPI:1831 380503 Systolic blood pressure 2019-02-23 20:12:00 129 mm[Hg] Diastolic blood 2019-02-23 20:12:00 74 mm[Hg] NPI:1 [id number] pressure Heart rate 2019-02-23 20:12:00 57 /min NPI:1831 220339 Body temperature 2019-02-23 20:12:00 36.11 Rika Respiratory rate 2019-02-23 20:12:00 16 /min Body height 2019-02-23 20:12:00 165.1 cm NPI:1831 332462 Body weight 2019-02-23 20:12:00 85.333 kg NPI:1831 956688 BMI 2019-02-23 20:12:00 31.31 kg/m2 NPI:1831 030656 Systolic blood pressure 2019-02-07 20:37:00 116 mm[Hg] Diastolic blood 2019-02-07 20:37:00 80 mm[Hg] NPI:1 [id number] pressure Body temperature 2019-02-07 20:32:00 36.44 Rika Respiratory rate 2019-02-07 20:32:00 16 /min Body height 2019-02-07 20:32:00 165.1 cm NPI:1831 772180 Body weight 2019-02-07 20:32:00 85.276 kg NPI:1831 802780 BMI 2019-02-07 20:32:00 31.28 kg/m2 NPI:1831 [id number] Procedures Procedure Date / Time Performed Performing Clinician [facility] e AUTHORIZATION FOR RELEASE 2021-09-23 05:01:00 Doctor Unassigned, No OF PHI Name EXTERNAL PROVIDER RECORDS 2021-09-05 06:01:00 Doctor Unassigned, No Name ABORH CONFIRMATION (LAB 2021-08-29 11:40:00 Maximiliano Nelson ONLY) HB ABO GROUPING 2021-08-29 11:06:00 Maximiliano Nelson NPI:1831 [id number] BASIC METABOLIC PANEL (NA, 2021-08-29 11:05:00 Adelaide Nelson K, CL, CO2, GLUCOSE, BUN, CREATININE, CA) CBC WITH DIFF 2021-08-29 11:05:00 Maximiliano Nelson NPI:1831 [id number] PROTHROMBIN TIME / INR 2021-08-29 11:05:00 Maximiliano Nelson Lesli PI:[id number] ACTIVATED PARTIAL THRMPLAS 2021-08-29 11:05:00 Adelaide Nelson er DAVID Encounters Start End Encounter Admission Attending Care Care Encounter Source Date/Time Date/Time Type Type Clinicians Facility Department ID 2021-12-31 2021-12-31 Outpatient R DAVID CHURCHILL [facility] [id number] NPI:183 08:30:00 08:30:00 DAVID CHURCHILL [id number] 2021-11-12 Outpatient R DAVID CHURCHILL [facility] [id number] NPI:183 15:00:00 15:00:00 DAVID CHURCHILL [id number] 2031-05-03 2021-11-12 Outpatient DAVID YOO [facility] [id number] NPI:183 15:00:00 15:00:00 DAVID CHURCHILL [id number] 2021-10-22 Outpatient R KERLINEANAHI GARRISONRICK [facility] [id number] NPI:183 14:30:00 14:30:00 DAVID CHURCHILL [id number] 2256-04-12 2021-10-22 Outpatient DAVID YOO [facility] [id number] NPI:183 14:30:00 14:30:00 DAVID CHURCHILL [id number] 2021-10-14 Outpatient R BANG [facility] [id number] NPI:183 11:01:18 23:59:00 [facility] [id number] 2021-10-14 2021-10-14 [facility] Bang [facility] 1.2.840.114 [id number] NPI:183 11:01:18 23:59:00 Encounter [facility] [id number] [id number] [place] 42.7.2.686 [place] [id number] [facility] OFFICE BUILDING 2021-10-14 2021-10-14 [id number] NPI:183 11:30:00 11:30:00 ANGELITA [id number] 2021-09-23 2021-09-23 Orders Doctor CAIT 1.2.840.114 [id number] NPI:183 00:00:00 00:00:00 Only UnassignedCAROLYN 350.1.13.10 [id number] [place] [address] [id number] [id number] 2021-09-05 2021-09-05 Orders Doctor CAIT 1.2.840.114 [id number] NPI:183 00:00:00 00:00:00 Only UnassignedCAROLYN 350.1.13.10 [id number] [place] [id number] [id number] 2021-08-28 2021-08-29 Outpatient U DAVID CHURCHILL [facility] [id number] NPI:183 20:51:00 14:00:00 DAVID CHURCHILL [id number] 2021-08-29 [facility] KerlineMARCIA 1.2.840.114 [id number] NPI:183 20:51:00 14:00:00 Encounter David LEON 350.1.13.[id number] [id number] 2020-09-24 2020-09-24 Outpatient R [facility] [id number] NPI:183 16:00:00 16:00:00 [id number] 2020-09-24 2020-09-24 Outpatient R [facility] [id number] NPI:183 16:00:00 16:00:00 [id number] 2020-08-09 2020-08-09 [facility] 1.2.840.114 [id number] NPI:183 00:00:00 00:00:00 Daniella Ballesteros PHOTOGRAPHY INSTRUCTOR 350.1.13.[id number] MATERNAL [id number] & CHILD [address] 2020-07-17 2020-07-17 Outpatient R LIBORIO [facility] [id number] NPI:183 08:45:00 08:45:00 SHEBA [id number] 2020-07-17 2020-07-17 Outpatient R LIBORIO [facility] [id number] NPI:183 08:45:00 08:45:00 SHEBA [id number] 81 2020-07-12 2020-07-12 [facility] 1.2.840.114 [id number] NPI:183 00:00:00 00:00:00 Daniella Ballesteros PHOTOGRAPHY INSTRUCTOR 350.1.13.10 [id number] [facility] 4.2.7.2.686 MATERNAL [id number] & CHILD [address] 2019-02-23 2019-02-23 [facility] 1.2 .840.114 [id number] NPI:183 14:57:22 15:24:24 Visit Casa Marshall PHOTOGRAPHY INSTRUCTOR 350.1.13.10 [id number] [facility] 4.2.7.2.686 MATERNAL [id number] & CHILD [address] 2019-02-08 2019-02-08 [facility] 1.2 .840.114 [id number] NPI:183 16:05:21 16:13:38 Visit Sheba Capone PHOTOGRAPHY INSTRUCTOR 350.1.13. 10 [id number] [facility] 4.2.7.2.686 MATERNAL [id number] & CHILD [address] 2019-02-07 2019-02-07 Office Rolando [facility] 1.2.840.114 [id number] NPI:183 14:48:45 16:29:10 Visit Casa Hurt PHOTOGRAPHY INSTRUCTOR 350.1.13.10 [id number] [facility] 4.2.7.2.686 MATERNAL [id number] & CHILD [address] Results Test Description Test Time Test Comments Results Result Comments Source ABORH Confirmation (Lab Only) 2021-08-29 13:30:16 Test Item Value Reference Range Interpretation Comme nts ABO & RH (test code = 20) A Positive Pe rformed at [facility] Laboratory Services - [facility] Blood [address] [place], [place] [address]Ufsx Free: [phone] No. [id number] NPI:[id number] METABOLIC PANEL (NA, K, CL, CO2, GLUCOSE, BUN, CREATININE, CA)2021-08-29 12:14:34 Test Item Value Reference Range Interpretation Comments NA (test code = 135 mmol/L 135-145 3352935348) K (test code = 4.3 mmol/L 3.5-5.0 0017402425) CL (test code = 108 mmol/L 98-108 7895892108) CO2 TOTAL (test code = 22 mmol/L 23-31 L 0600199686) AGAP (test code = 2-16 9131278429) BUN (test code = 12 mg/dL 7-23 3500792452) GLUCOSE (test code = 131 mg/dL 70-110 H 5564252016) CREATININE (test code = 0.70 mg/dL 0.50-1.04 1755753320) CALCIUM (test code = 8.3 mg/dL 8.6-10.6 L 6064100842) eGFR (test code = mL/min/1.73m2 6605632632) DUSTY (test code = DUSTY) Association of Glomerular Filtration Rate (GFR) and Staging of Kidney Disease* + --+ --+ ------+| GFR (mL/min/1.73 m2) ?| With Kidney Damage ?| ?Without Kidney Damage+ --------+ --------+ +| ?>90 ?| ?Stage one ?| ? Normal ?+ ---+ ---+ -------+| ?60-89 ?| ?Stage two ?| ? Decreased GFR ? + --+ --+ ------+| ?30-59 ?| ?Stage three ?| ? Stage three ? + --+ --+ ------+| ?15-29 ?| ?Stage four ? | ? Stage four ?+ ---+ ---+ -------+| ?<15 (or dialysis) ? ?| ?Stage five ? | ? Stage five ?+ ---+ ---+ -------+ *Each stage assumes the associated GFR level has been in effect for at least three months. ?Stages 1 to 5, with or without kidney disease, indicate chronic kidney disease. Notes: Determination of stages one and two (with eGFR >59mL/min/1.73 m2) requires estimation of kidney damage for at least three months as defined by structural or functional abnormalities of the kidney, manifested by either:Pathological abnormalities or Markers of kidney damage (including abnormalities in the composition of the blood or urine or abnormalities in imaging tests). Lab Interpretation Abnormal (test code = 11718-1) NPI:[id number] and Screen - ONCE [id number] 11:55:01 Test Item Value Reference Range Interpretation Comments ABO & RH (test code A POSITIVE Performe d at [facility] = 20) Laboratory Serv [facility] [place] [address]17[address]Cywx Free: [phone] A No. [id number] IAT (test code = Negative Performed a t [facility] 1185) Laboratory [facility] [address] [place] [address] 62004Wztd Free: [phone] A No. [id number] NPI:[id number] TIME / [id number] 11:29:46 Test Item Value Reference Range Interpretation Comments PROTIME PATIENT (test See_Comment [Auto mated message] code = 5964-2) The system [employer] ich generated this result transmitted ref erence range: 10.1 - 1 2.6 Seconds. The re ference range was not u sed to interpret this result as normal/abnor mal. INR (test code = 6301-6) Nor mal INR <1.1; Warfarin Therap eutic range 2.0 to 3. 0 or 2.5 to 3.5, dep ending upon the indica tions. Lab Interpretation (test Normal code = 68967-6) NPI:[id number] PARTIAL THRMPLAS [id number] 11:29:46 Test Item Value Reference Range Interpretation Comments APTT Patient (test code See_Comment L [Au tomated message] = 3173-2) The system [employer] h generated this result transmitted ref erence range: 26 - 36 Seconds. The reference range was not used to int erpret this result as normal/abnormal . Lab Interpretation (test Abnormal code = 03225-5) NPI:[id number] WITH [id number] 11:22:42 Test Item Value Reference Range Interpretation Comments WBC (test code = See_Comment [Automated 6690-2) message] The sy stem which generated this result transmitted reference range : 4.30 - 11.10 10*3/?L. The reference range was not used to interpret this result as normal/abnormal . RBC (test code = See_Comment L [Automated 789-8) message] The sy stem which generated this result transmitted reference range : 3.93 - 5.25 10*6/?L. The reference range was not used to interpret this result as normal/abnormal . HGB (test code = 11.6 g/dL 11.6-15.0 718-7) HCT (test code = 35.2 % 35.7-45.2 L 4544-3) MCV (test code = 92.6 fL 80.6-95.5 787-2) MCH (test code = 30.5 pg 25.9-32.8 785-6) MCHC (test code = 33.0 g/dL 31.6-35.1 786-4) RDW-SD (test code = 47.0 fL 39.0-49.9 75863-1) RDW-CV (test code = 13.8 % 12.0-15.5 788-0) PLT (test code = See_Comment [Automated 777-3) message] The sy stem which generated this result transmitted reference range : 166 - 358 10*3/ ?L. The reference r mekhi was not used to interpret this result as normal/abnormal . MPV (test code = 10.8 fL 9.5-12.9 35403-1) NRBC/100 WBC (test See_Comment [Automat ed code = 2479336961) message] The system which generated this result transmitted reference range : 0.0 - 10.0 /100 WBCs. The refer ence range was not u sed to interpret th is result as normal/abnormal . NRBC x10^3 (test code <0.01 See_Comment [Auto mated = 7993178778) message] The s ystem which generated this result transmitted reference range : 10*3/?L. The reference range was not used to interpret this result as normal/abnormal . GRAN MAT (NEUT) % 89.4 % (test code = 770-8) IMM GRAN % (test code 0.50 % = 2670087413) LYMPH % (test code = 7.0 % 736-9) MONO % (test code = 3.0 % 5905-5) EOS % (test code = 0.0 % 713-8) BASO % (test code = 0.1 % 706-2) GRAN MAT x10^3(ANC) 9.90 10*3/uL 1.88-7.09 H (test code = 3607188259) IMM GRAN x10^3 (test 0.05 10*3/uL 0.00-0.06 code = 6637986421) LYMPH x10^3 (test code 0.78 10*3/uL 1.32-3.29 L = 731-0) MONO x10^3 (test code 0.33 10*3/uL 0.33-0.92 = 742-7) EOS x10^3 (test code = <0.03 0.03-0.39 L 711-2) BASO x10^3 (test code <0.03 0.01-0.07 = 704-7) Lab Interpretation Abnormal (test code = 70815-2) "
--- NOTE | 2021-11-19 22:31 | ER ---
Nurse's Notes [facility] Name: Anne Marie Dubon Age: 46 yrs Sex: Female : 1975 Arrival Date: 11/19/2021 Time: 21:11 Bed 28 [facility] MD: Diagnosis: Pain in left knee Presentation: 11/19 21:28 Chief complaint: Patient states: Left leg swelling x 3 days, denies injury, reports lp1 severe pelvic pain that is worse than normal with her menstrual cycle. Coronavirus screen: At this time, the client does not indicate any symptoms associated with coronavirus-19. Ebola Screen: No symptoms or risks identified at this time. Initial Sepsis Screen: Does the patient meet any 2 criteria? No. Patient's initial sepsis screen is negative. Does the patient have a suspected source of infection? No. Patient's initial sepsis screen is negative. Risk Assessment: Do you want to hurt yourself or someone else? Patient reports no desire to harm self or others. Onset of symptoms was November 19, 2021. 21:28 Method Of Arrival: Ambulatory lp1 21:28 Acuity: JULIA 3 lp1 Historical: - Allergies: 21:29 Codeine; lp1 21:29 Hydrocodone-Acetaminophen; lp1 21:29 PENICILLINS; lp1 - Home Meds: 21:29 None [Active]; lp1 - PMHx: 21:29 Ovarian cysts; lp1 - PSHx: 21:29 Cholecystectomy; tubal ; lp1 - Immunization history:: Adult Immunizations up to date. - Social history:: Smoking status: Patient reports the use of cigarette tobacco products, smokes one pack cigarettes per day. - Family history:: not pertinent. - Hospitalizations: : No recent hospitalization is reported. Screenin:30 Abuse screen: Denies threats or abuse. Nutritional screening: No deficits noted. jb4 Tuberculosis screening: No symptoms or risk factors identified. 21:30 Fall Risk None identified. jb4 Assessment: 21:30 General: Appears in no apparent distress. comfortable, Behavior is calm, cooperative, jb4 appropriate for age. Pain: Complains of pain in left knee Pain does not radiate. Pain currently is 7 out of 10 on a pain scale. Neuro: Level of Consciousness is awake, alert, obeys commands, Oriented to person, place, time, situation. Cardiovascular: Patient's skin is warm and dry. Respiratory: Airway is patent Respiratory effort is even, unlabored, Respiratory pattern is regular, symmetrical. GI: No signs and/or symptoms were reported involving the gastrointestinal system. : No signs and/or symptoms were reported regarding the genitourinary system. EENT: No signs and/or symptoms were reported regarding the EENT system. Derm: Skin is intact, Skin is pink, warm \T\ dry. Musculoskeletal: Circulation, motion, and sensation intact. Range of motion: intact in all extremities, Swelling present in left knee. 22:42 Reassessment: Patient appears in no apparent distress at this time. Patient and/or jb4 family updated on plan of care and expected duration. Pain level reassessed. Patient is alert, oriented x 3, equal unlabored respirations, skin warm/dry/pink. Vital Signs: 21:28 BP 139 / 78; Pulse 56; Resp 18; Temp 97.8(TE); Pulse Ox 99% on R/A; Weight 88.45 kg lp1 (R); Height 5 ft. 5 in. (165.10 cm); Pain 8/10; 21:28 Body Mass Index 32.45 (88.45 kg, 165.10 cm) lp1 ED Course: 21:11 Patient arrived in ED. bp1 21:22 Kevin Vallejo MD is Attending Physician. rn 21:29 Triage completed. lp1 21:29 Arm band placed on. lp1 21:30 Patient has correct armband on for positive identification. Bed in low position. Call jb4 light in reach. Side rails up X 1. 22:24 Extremity Venous Uni Ltd US In Process Unspecified. EDMS 22:24 US Pelvis Complete In Process Unspecified. EDMS 22:40 Prince Villarreal RN is Primary Nurse. jb4 22:42 No provider procedures requiring assistance completed. Patient did not have IV access jb4 during this emergency room visit. Administered Medications: No medications were administered Outcome: 22:30 Discharge ordered by . rn 22:42 Discharged to home ambulatory. jb4 22:42 Condition: stable 22:42 Discharge instructions given to patient, Instructed on discharge instructions, follow up and referral plans. Demonstrated understanding of instructions, follow-up care. 22:43 Patient left the ED. jb4 Signatures: Dispatcher [employer] EDKevin Rojas MD MD rn Renuka Pierce RN RN lp1 Prince Villarreal RN RN jb4 Adeline Tolbert
--- NOTE | 2021-11-19 22:31 | EDPHYS ---
Physician Documentation [facility] Name: Anne Marie Dubon Age: 46 yrs Sex: Female : 1975 Arrival Date: 11/19/2021 Time: 21:11 Bed 28 Private MD: ED Physician Kevin Vallejo HPI: 11/19 22:07 This 46 yrs old Female presents to ER via Ambulatory with complaints of Abdominal Pain, rn Leg Swelling. 22:07 The patient presents with pain, swelling. The complaints affect the posterior aspect of rn left knee and left knee. Onset: The symptoms/episode began/occurred 3 day(s) ago. Modifying factors: The symptoms are alleviated by remaining still, the symptoms are aggravated by movement, bending knee. Associated signs and symptoms: Pertinent positives: swelling, Pertinent negatives fever, warmth, weakness. Severity of symptoms: At their worst the symptoms were mild, in the emergency department the symptoms are unchanged. The patient has not experienced similar symptoms in the past. The patient has not recently seen a physician. Pt reports here for 2 reasons, left knee pain and pelvic pain. Reports left knee hurting for 3 days, was cleaning on on her knees a lot lately. No fever. NO hx of gout. No direct fall or trauma to knee. Also reports just started menses, had tubal ligation, hx of cysts, and states lower abd cramping, thinks is cysts and would like to be evaluated for that as well. No fever/vomiting/diarrhea/blood in stool.. Historical: - Allergies: 21:29 Codeine; lp1 21:29 Hydrocodone-Acetaminophen; lp1 21:29 PENICILLINS; lp1 - Home Meds: 21:29 None [Active]; lp1 - PMHx: 21:29 Ovarian cysts; lp1 - PSHx: 21:29 Cholecystectomy; tubal ; lp1 - Immunization history:: Adult Immunizations up to date. - Social history:: Smoking status: Patient reports the use of cigarette tobacco products, smokes one pack cigarettes per day. - Family history:: not pertinent. - Hospitalizations: : No recent hospitalization is reported. ROS: 22:07 Constitutional: Negative for fever, chills, and weight loss, Eyes: Negative for injury, rn pain, redness, and discharge, Neck: Negative for injury, pain, and swelling, Cardiovascular: Negative for chest pain, palpitations, and edema, Respiratory: Negative for shortness of breath, cough, wheezing, and pleuritic chest pain, Abdomen/GI: + lower abd pain and cramping, negative for vomiting/diarrhea/blood in stool Back: Negative for injury and pain, : Negative for injury, bleeding, discharge, and swelling, MS/Extremity: + left knee pain and swelling Skin: Negative for injury, rash, and discoloration, Neuro: Negative for headache, weakness, numbness, tingling, and seizure. Exam: 22:07 Constitutional: This is a well developed, well nourished patient who is awake, alert, rn and in no acute distress. Abdomen/GI: soft, no focal tenderness, no distension or swelling. No peritoneal signs. Skin: Warm, dry with normal turgor. Normal color with no rashes, no lesions, and no evidence of cellulitis. MS/ Extremity: Pulses equal, no cyanosis. Neurovascular intact. Full, normal range of motion. LLE slight increase in circumference compared to RLE, primarliy about the left knee, + tenderness posterior to left knee and anteriorly just inferior to patella, no bony tenderness. Vital Signs: 21:28 BP 139 / 78; Pulse 56; Resp 18; Temp 97.8(TE); Pulse Ox 99% on R/A; Weight 88.45 kg lp1 (R); Height 5 ft. 5 in. (165.10 cm); Pain 8/10; 21:28 Body Mass Index 32.45 (88.45 kg, 165.10 cm) lp1 MDM: 21:22 Patient medically screened. rn 22:27 Differential diagnosis: sinclair's cyst, knee effusion, ovarian cyst, arthritis. Data rn reviewed: vital signs, nurses notes, radiologic studies, ultrasound, and as a result, I will discharge patient. Counseling: I had a detailed discussion with the patient and/or guardian regarding: the historical points, exam findings, and any diagnostic results supporting the discharge/admit diagnosis, radiology results, the need for outpatient follow up, to return to the emergency department if symptoms worsen or persist or if there are any questions or concerns that arise at home. Response to treatment: the patient's symptoms have mildly improved after treatment, and as a result, I will discharge patient. Special discussion: I discussed with the patient/guardian in detail that at this point there is no indication for admission to the hospital. It is understood, however, that if the symptoms persist or worsen the patient needs to return immediately for re-evaluation. ED course: NO acute findings on u/s pelvis or LLE. + pre-patellar swelling and possible cyst, will dc home with rest/heat/elevation/knee brace. No fever, no warmth, no complaints to indicate infection. No direct trauma of knee. Return precautions given and understood.. 11/19 21:39 Order name: Extremity Venous Uni Ltd US rn 11/19 21:39 Order name: US Pelvis Complete rn Administered Medications: No medications were administered Disposition Summary: 11/19/21 22:30 Discharge Ordered Location: Home rn Problem: new rn Symptoms: have improved rn Condition: Stable rn Diagnosis - Pain in left knee rn Followup: rn - With: Private Physician - When: As needed - Reason: Recheck today's complaints, Re-evaluation by your physician Discharge Instructions: - Discharge Summary Sheet rn - Joint Pain rn - Acute Knee Pain, Adult rn Forms: - Medication Reconciliation Form rn - Thank You Letter rn - 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
[2021-11-19 23:49] VITALS: BP 139/78; TEMP 97.8; O2SAT 99
--- NOTE | 2021-11-20 10:59 | RAD REPORT ---
EXAM DESCRIPTION: Pelvis Complete 11/19/2021 10:59 PM CDT CLINICAL HISTORY: 46 years, Female, pelvic pain, hx of ovarian cysts COMPARISON: None. TECHNIQUE: Utilizing a curved array transducer, real-time ultrasound evaluation of the female pelvis was performed. Color Doppler imaging was used to assess vascular flow. Patient refused transvaginal ultrasound FINDINGS: The uterus measures 9.2 x 5.2 x 5.6 cm. The endometrial stripe demonstrate to be normal and measure 8.4 mm, no focal masses were identified within the uterus. The right ovary measured 2.1 x 2.2 x 1.9 cm, the left ovary measures 2.7 x 2.2 x 2.3 cm. There is nor mal vascular flow and spectral waveforms with no evidence for torsion. No free fluid was identified in the posterior cul-de-sac, no adnexal masses seen. IMPRESSION: Unremarkable pelvic ultrasound. Electronically signed by: Gil Wick MD 11/19/2021 11:01 PM CDT Due to temporary technical issues with the PACS/Fluency reporting system, reports are being signed by the in house radiologist without review as a courtesy to ensure prompt reporting. The interpreting r adiologist is fully responsible for the content of the report.
--- NOTE | 2021-11-20 11:01 | RAD REPORT ---
EXAM DESCRIPTION: Extremity Venous Uni Ltd CLINICAL HISTORY: 46 years Female pain to front and back of knee COMPARISON: None. TECHNIQUE: Duplex and color Doppler imaging performed to evaluate the extremity deep venous structur es. Compression imaging and augmentation imaging performed. Grayscale, color Doppler and gated duplex imaging with spectral analysis were performed. FINDINGS: There is a 46 x 14 mm fluid collection at the anterior lateral aspect of the knee in the r egion of swelling. No thrombus is identified in the deep venous structures imaged. There is normal flow, compressibility, and augmentation throughout. IMPRESSION: No DVT is identified. Electronically signed by: Bharathi Ahmadi 11/19/2021 10:57 PM CDT Due to temporary technical issues with the PACS/Fluency reporting system, reports are being signed by the in house radiologist without review as a courtesy to ensure prompt reporting. The interpreting r adiologist is fully responsible for the content of the report.
== END 2021-11-19 22:43 | disposition home or self-care (01) ==
LOC: ER 21:08
DX: M25.562 Pain in left knee (principal); R10.30 Lower abdominal pain, unspecified; F17.210 Nicotine dependence, cigarettes, uncomplicated; Z88.0 Allergy status to penicillin; Z88.5 Allergy status to narcotic agent
CPT/HCPCS: 76856; 93971; 99283

== ENCOUNTER 2022-08-26 10:35 | Emergency (ER) | payer SELFPAY ==
--- OUTSIDE RECORDS SUMMARY | 2022-08-26 10:41 | XMS REPORT | Continuity of Care Document ---
:1975 Author Organization [facility] t Address [address] [place] [address] Care Team Providers Name Role Phone Aime Rolle Primary Care Physician Leyla Julien RN Attending Clinician Unavailable DAVID CHURCHILL Attending Clinician Unavailable DAVID CHURCHILL Attending Clinician Unavailable ANGELITA CUENCA Attending Clinician Unavailable Bang Mcdonnell MD, Chilvana Attending Clinician Doctor Unassigned, [place] Attending Clinician Unavailable Daniella Joe Attending Clinician SHEBA CAPONE Attending Clinician Un[facility] Attending Clinician Unavailable Casa Anderson Attending Clinician Liborio Sheba ARTEAGA Attending Clinician [phone] DAVID CHURCHILL Admitting Clinician Unavailable Payers Payer Name Policy Type Policy Number Effective Date Expiration Date S ource Problems Condition Condition Condition Status Onset Resolution Last Treating Co mments Source Name Details Category Date Date Treatment Clinician Date Cervical Cervical Disease Active Michelee rs stenosis stenosis 2-16 ity of of spine of spine 00:00: [place] 00 Medical Branch Abnormalit Abnormalit Disease Active U nivers y of right y of right 6-04 it y of breast on breast on 00:00: Aydin de leon screening screening 00 [facility] asha mammogram mammogram Bran ch Right Right Disease Active Overview: Univer s ovarian ovarian 12-14 Formattin ity o f cyst cyst 00:00: g of this [place] 00 note Medical might be Branch different from the original. 1.8 x 1.8 x 2.1 cm right ovarian hemorrhag ic cyst on 12/14/18 pelvic US Intramural Intramural Disease Active Overview : Univers leiomyoma leiomyoma 12-14 Formattin i ty of of uterus of uterus 00:00: [place] of this [place] 00 note Medical might be Branch different from the original. 1 x 0.8 cm on 12/14/18 pelvic US Screen for Screen for Disease Active U nivers STD STD 12-08 ity of (sexually (sexually [place] transmitte transmitte 00 Me dical d disease) d disease) Br anch BMI BMI Disease Active Univers 31.0-31.9, 31.0-31.9, - it y of adult adult 00:00: Medical Branch Positive Positive Disease Active Unive rs depression depression 12-08 it y of screening screening [place] S/P tubal S/P tubal Disease Active Uni vers ligation ligation 12-08 ity of 00:00: Medical Branch Trichomona Trichomona Disease Active U nivers l l 12-08 ity of vulvovagin vulvovagin [place] it[place] it[place] Medical Branch Menorrhagi Menorrhagi Disease Active U nivers a with a with -29 ity of regular regular 00:00: cycle cycle Medical Branch Enlarged Enlarged Disease Active Unive rs uterus uterus 12-08 ity of 00:00: Medical Branch S/P tubal S/P tubal Disease Active Uni vers ligation ligation 12-08 ity of 00:00: Medical Branch Menorrhagi Menorrhagi Disease Active U nivers a with a with -29 ity of regular regular 00:00: cycle cycle Medical Branch Allergies, Adverse Reactions, Alerts Allergy Allergy Status Severity Reaction(s) Onset Inactive Treating Comm ents Source Name Type Date Date Clinician Penicill Drug Active Hives Univers in Allergy 12-08 ity of 00:00: [place] 00 Medical Branch PENICILL DRUG Active Med Hives 2018- Univers IN INGREDI - ity of 00:00: [place] 00 Medical Branch Penicill Drug Active Hives 2018- Univers in Allergy - ity of 00:00: [place] 00 Medical Branch Amoxicil Propensi Active Hives Univer s alverto ty to 08-04 ity of adverse 00:00: [place] reaction 00 Medical s Branch AMOXICIL DRUG Active Hives Univers ALVERTO INGREDI 08-04 ity of 00:00: [place] 00 Medical Branch Hydrocod Propensi Active Nausea 2015-07 Univer s one-Acet ty to and/or 2- ity of aminophe adverse Vomiting 00:00: [place] n reaction 00 Medical s Branch HYDROCOD DRUG Active N/V 2015-07 Univers ONE-ACET 2- ity of AMINOPHE 00:00: [place] N 00 Medical Branch Codeine Propensi Active Rash 2007- Univers ty to 08-04 ity of adverse 00:00: [place] reaction 00 Medical s Branch CODEINE DRUG Active Rash 2007- Univers INGREDI 08-04 ity of 00:00: [place] 00 Medical Branch Social History Social Habit Start Date Stop Date Quantity Comments Source History of tobacco 1998-12-08 Cigarette Smoker University of use 00:00:00 [facility] [place] History [facility] o f [facility] University o f Alcohol Std Drinks [facility] Branch History [facility] University o f Alcohol Binge [place] [facility] Exposure to Not sure University of SARS-CoV-2 (event) [facility] [place] Alcohol intake 2021-08-28 2021-08-28 Current drinker Unive rsity of 00:00:00 00:00:00 of alcohol [facility] (finding) Branch Cigarettes smoked 2018-12-08 2018-12-08 Univers ity of current (pack per 00:00:00 00:00:00 [facility] edical ) - Reported Branch Alcohol Comment 2018-12-08 2018-12-08 ocassional Universit y of 00:00:00 00:00:00 [facility] [place] Tobacco use and 2018-12-08 2018-12-08 Smokeless tobacco Un iversity of exposure 00:00:00 00:00:00 non-user [facility] [place] Sex Assigned At [birth year] Universit y of 00:00:00 00:00:00 [facility] [place] Smoking Status Start Date Stop Date Source Smokes tobacco daily 2018-12-08 00:00:00 [facility] ity of [facility] [place] Medications Ordered Filled Start Stop Current Ordering Indication Dosage Frequency Signature Comments Components Source Medication Medication Date Date Medication? Clinician (SIG) Name Name FENTanyl PF No 25ug 25 mcg, Un jose (SUBLIMAZE 08-29 Slow IV ity o f (PF)) 17:30: 16:24 Push, [place] injection 00 :00 ONCE, 1 Medical 25 mcg dose, On Branch [facility] 08/29/21 at 1130, Routine famotidine Yes 20mg 20 mg, Unive rs (PEPCID AC) 2-17 Oral, BID, it y of tablet 20 14:00: [place] 00 on [facility] 08/29/21 at Branch 0800, Until Discontinu ed, Routine docusate Yes 100mg 100 mg, Unive rs (COLACE) 2-17 Oral, BID, ity o f capsule 100 14:00: First dose [place] mg 00 on [facility] 08/29/21 at Branch 0800, Until Discontinu ed, Routine gabapentin Yes 300mg 300 mg, Uni vers (NEURONTIN) 2-17 Oral, TID, it y of capsule 300 14:00: First dose [place] mg 00 on [facility] 08/29/21 at Branch 0800, Until Discontinu ed, Routine traMADoL Yes 50mg 50 mg, Univers (ULTRAM) 2-17 Oral, ity of tablet 50 03:35: Q6HPRN, [place] mg 17 Starting Medical on Thu [place] 08/28/21 at 2135, Until Discontinu ed, Routine, Pain (scale 4-6) acetaminoph Yes 325mg 325 mg, Un jose en 2-17 Oral, ity of (TYLENOL) 03:35: Q6HPRN, [place] tablet 325 11 Starting Medic al mg on Thu [place] 08/28/21 at 2135, Until Discontinu ed, Routine, Pain (scale 1-3) bisacodyL Yes 10mg 10 mg, Univer s (DULCOLAX) 2-17 Rectal, ity of suppository 03:32: QHSPRN, [place] 10 mg 01 Starting Medical on Thu Branch 08/28/21 at 2132, Until Discontinu ed, Routine, Constipati on NaCl 0.9% 0 Yes 5mL 5 mL, Slow Un jose (NS) 2-17 IV Push, ity of injection 5 03:32: PRN - SEE [place] mL 01 INSTRUCTIO Medical NS, Branch Starting on Thu08/28/21 at 2132, Until Discontinu ed, 10 mL methylPREDN 2021-0 Yes [id number] Take by Univers ISolone 4 2-17 mouth ity of mg tablets 00:00: SEE-INSTRU [place] 00 CTIONS. Medical follow Branch package directions methylPREDN 2021-0 Yes [id number] Take by Univers ISolone 4 2-17 mouth ity of mg tablets 00:00: [place]-INSTRU [place] 00 CTIONS. Medical follow Branch package directions methylPREDN 2021-0 Yes [id number] Take by Univers ISolone 4 2-17 mouth ity of mg tablets 00:00: [place]-INSTRU [place] 00 CTIONS. Medical follow Branch package directions methylPREDN 2021-0 Yes [id number] Take by Univers ISolone 4 2-17 mouth ity of mg tablets 00:00: SEE-INSTRU [place] 00 CTIONS. Medical follow Branch package directions methylPREDN 2021-0 Yes [id number] Take by Univers ISolone 4 2-17 mouth ity of mg tablets 00:00: SEE-INSTRU [place] 00 CTIONS. Medical follow Branch package directions methylPREDN 2021-0 Yes [id number] Take by Univers ISolone 4 2-17 mouth ity of mg tablets 00:00: SEE-INSTRU [place] 00 CTIONS. Medical follow Branch package directions gabapentin 2021-2021- No [id number] 300mg Take 1 Univers 300 mg 2-17 -20 capsule by ity of capsule 00:00: 04:59 mouth 3 [place] 00 :00 (three) Medical times Branch daily for 30 days. gabapentin 2021-0 2021- No [id number] 300mg Take 1 Univers 300 mg 2-17 -20 capsule by ity of capsule 00:00: 04:59 mouth 3 [place] 00 :00 (three) Medical times Branch daily for 30 days. gabapentin 2021- No [id number] 300mg Take 1 Univers 300 mg 2-17 -20 capsule by ity of capsule 00:00: 04:59 mouth 3 [place] 00 :00 (three) Medical times Branch daily for 30 days. LOESTRIN 2018- No [id number] 1{tbl} Take 1 Univers (MICROGESTI 5-29 07-29 tablet by it y of N FE 08/01) 00:00: 00:00 mouth [place] 1 mg-20 mcg 00 :00 daily. Medica l (21)/75 mg Branch (7) tablet LOESTRIN 2018- No [id number] 1{tbl} Take 1 Univers (MICROGESTI 5-29 07-29 tablet by it y of N FE 08/01) 00:00: 00:00 mouth [place] 1 mg-20 mcg 00 :00 daily. Medica l (21)/75 mg Branch (7) tablet LOESTRIN 2018- No [id number] 1{tbl} Take 1 Univers (MICROGESTI 5-29 07-29 tablet by it y of N FE 08/01) 00:00: 00:00 mouth [place] 1 mg-20 mcg 00 :00 daily. Medica l (21)/75 mg Branch (7) tablet LOESTRIN 2018- No [id number] 1{tbl} Take 1 Univers (MICROGESTI 5-29 07-29 tablet by it y of N FE 08/01) 00:00: 00:00 mouth [place] 1 mg-20 mcg 00 :00 daily. Medica l (21)/75 mg Branch (7) tablet No known No [facility] No known No [facility] No known No [facility] Vital Signs Vital Name Observation Time Observation Value Comments Source Systolic blood 2021-08-29 18:00:00 107 mm[Hg] Univer sity [facility] Diastolic blood 2021-08-29 18:00:00 58 mm[facility]Hg] [facility] Heart rate 2021-08-29 18:00:00 61 /min Universi ty [facility] Body temperature 2021-08-29 18:00:00 36.44 Rika Univ ersity of [facility] [place] Respiratory rate 2021-08-29 18:00:00 20 /min [facility] [place] Oxygen saturation in 2021-08-29 18:00:00 100 /min University Arterial blood by [facility] Pulse oximetry Branch Body height 2021-08-29 03:37:00 165.1 cm Universi ty of [facility] [place] Body weight 2021-08-29 01:00:00 86.183 kg Universi ty of [facility] [place] BMI 2021-08-29 01:00:00 31.62 kg/m2 Universi ty of [facility] [place] Systolic blood 2019-02-23 20:12:00 129 mm[Hg] Univer sity of pressure [facility] [place] Diastolic blood 2019-02-23 20:12:00 74 mm[Hg] Unive rsity of [facility] Heart rate 2019-02-23 20:12:00 57 /min Universi ty of [facility] [place] Body temperature 2019-02-23 20:12:00 36.11 Rika Univ ersity of [facility] [place] Respiratory rate 2019-02-23 20:12:00 16 /min Univ ersity of [facility] [place] Body height 2019-02-23 20:12:00 165.1 cm Universi ty of [place] [facility] [place] Body weight 2019-02-23 20:12:00 85.333 kg Universi ty of [place] [facility] BMI 2019-02-23 20:12:00 31.31 kg/m2 Universi ty of [facility] [place] Systolic blood 2019-02-07 20:37:00 116 mm[Hg] Univer sity of pressure [facility] [place] Diastolic blood 2019-02-07 20:37:00 80 mm[Hg] Unive rsity of pressure [facility] [place] Body temperature 2019-02-07 20:32:00 36.44 Rika Univ ersity of [facility] [place] Respiratory rate 2019-02-07 20:32:00 16 /min Univ ersity of [facility] [place] Body height 2019-02-07 20:32:00 165.1 cm Universi ty of [place] [facility] [place] Body weight 2019-02-07 20:32:00 85.276 kg Universi ty of [facility] [place] BMI 2019-02-07 20:32:00 31.28 kg/m2 Universi ty of [facility] [place] Procedures Procedure Date / Time Performing Clinician Source Performed AUTHORIZATION FOR 2021-09-23 05:01:00 Doctor Unassigned, No [facility] RELEASE OF PHI Name Medical [place] EXTERNAL PROVIDER 2021-09-05 06:01:00 Doctor Unassigned, No [facility] RECORDS Name [facility] ABORH CONFIRMATION (LAB 2021-08-29 11:40:00 Maximiliano Nelson [facility] ONLY) [facility] HB ABO GROUPING 2021-08-29 11:06:00 Maximiliano Nelson [facility] BASIC METABOLIC PANEL 2021-08-29 11:05:00 [facility] (NA, K, CL, CO2, Medical Branch GLUCOSE, BUN, CREATININE, CA) CBC WITH DIFF 2021-08-29 11:05:00 Maximiliano Nelson [facility] PROTHROMBIN TIME / INR 2021-08-29 11:05:00 [facility] 2021-08-29 11:05:00 Maximiliano Nelson [facility] Encounters Start End Encounter Admission Attending Care Care Encounter Source Date/Time Date/Time Type Type Clinicians Facility Department ID 2022-08-26 2022-08-26 Nurse CAIT Julien [id number] Univers 00:00:00 00:00:00 Triage Leyla LEON [id number] [facility] [id number] [place] [phone] [address] 2022-01-21 2022-01-21 Outpatient DAVID YOO [facility] [id number] Univers 11:00:00 11:00:00 DAVID CHURCHILL [facility] 2021-11-12 2021-11-12 Outpatient DAVID YOO [facility] [id number] Univers 15:00:00 15:00:00 DAVID CHURCHILL [facility] 2021-10-22 2021-10-22 Outpatient DAVID YOO [facility] [id number] Univers 14:30:00 14:30:00 DAVID CHURCHILL [facility] 2021-10-14 2021-10-14 Outpatient R CUENCA [facility] [id number] Univers 11:01:18 23:59:00 CHIPEGGY ity o f [facility] [place] 2021-10-14 2021-10-14 [facility] 1.2.840.114 [id number] Univers 11:01:18 23:59:00 [id number] it[place]2.686 [place] AMAZONIA [id number] [address] OFFICE BUILDING 2021-09-23 2021-09-23 Orders Doctor CAIT 1.2.840.114 [id number] Univers 00:00:00 00:00:00 Only Unassigned, CAROLYN [id number] ity of [place] [facility] 4.2.7.2.686 Zac as [id number] [address] 2021-09-05 2021-09-05 Orders Doctor CAIT 1.2.840.114 [id number] Univers 00:00:00 00:00:00 Only Unassigned, CAROLYN [id number] ity of [place] [facility] 4.2.7.2.686 Zac as [id number] [address] 2021-08-28 2021-08-29 Outpatient U KERLINEDAVID [facility] SNS [id number] Univers 20:51:00 14:00:00 DAVID CHURCHILL ity of [facility] [place] 2021-08-28 2021-08-29 [facility] MARCIA [place] 1.2.840.114 [id number] Univers 20:51:00 14:00:00 Encounter David LEON 350.1.13.10 ity of HOSPITAL 4.2.7.2.686 [place] as [id number] [facility] 097 Branch 2020-09-24 2020-09-24 Outpatient R [facility] [id number] Univers 16:00:00 16:00:00 ity of [facility] [place] 2020-08-09 2020-08-09 Telephone Ramesh [facility] 1.2.840.114 [id number] Univers 00:00:00 00:00:00 Daniella Ballesteros ASSOCIATE FIELD SERVICE ENGINEER 350.1.13.10 it y of [address]686 [place]ac as MATERNAL [phone] [facility] ical & CHILD [address] [place] [address] 2020-07-17 2020-07-17 Outpatient R LIBORIO [facility] [id number] Univers 08:45:00 08:45:00 SHEBA foley [facility] [place] 2020-07-12 2020-07-12 Tele[facility] 1.2.840.114 [id number] Univers 00:00:00 00:00:00 Daniella Ballesteros ASSOCIATE FIELD SERVICE ENGINEER 350.1.13.10 it y of [place] [id number] Zac as MATERNAL [phone] [facility] [address] [place] [address] 2019-02-23 2019-02-23 Nurse Visit, [place] Nurse [facility] 1.2 .840.114 [id number] Univers 14:57:22 15:24:24 Visit Casa Marshall ASSOCIATE FIELD SERVICE ENGINEER 350.1.13.10 ity of [place] [id number] Zac as MATERNAL [id number] [facility] [address] [place] [address] 2019-02-08 2019-02-08 Nurse Visit, [place] Nurse [facility] 1.2 .840.114 [id number] Univers 16:05:21 16:13:38 Visit Sheba Capone ASSOCIATE FIELD SERVICE ENGINEER 350.1.13. 10 ity of [place] [id number] Zac as MATERNAL [id number] [facility] [address] [place] [address] 2019-02-07 2019-02-07 Office Rolando [facility] 1.2.840.114 [id number] Univers 14:48:45 16:29:10 Visit Casa Hurt ASSOCIATE FIELD SERVICE ENGINEER 350.1.13.10 ity of [address]686 [place] MATERNAL [phone] [facility] [address] [place] [address] Results Test Description Test Time Test Comments Results Result Comments Source ABORH Confirmation (Lab Only) 2021-08-29 13:30:16 Test Item Value Reference Range Interpretation Comme nts ABO & RH (test code = 20) A Positive Pe rformed at [facility] Laboratory Services - [facility] Blood [address] [place], [place] [address]Oyzf Free: [phone] No. [id number] [facility]OL[facility] (NA, K, CL, CO2, GLUCOSE, BUN, CREATININE, CA)2021-08-29 12:14:34 Test Item Value Reference Range Interpretation Comments NA (test code = 135 mmol/L 135-145 7883868855) K (test code = 4.3 mmol/L 3.5-5.0 3838108700) CL (test code = 108 mmol/L 98-108 6680779474) CO2 TOTAL (test code = 22 mmol/L 23-31 L 7953202069) AGAP (test code = 2-16 5751694527) BUN (test code = 12 mg/dL 7-23 8347131918) GLUCOSE (test code = 131 mg/dL 70-110 H [id number]) CREATININE (test code = 0.70 mg/dL 0.50-1.04 5176202169) CALCIUM (test code = 8.3 mg/dL 8.6-10.6 L 8791385827) eGFR (test code = mL/min/1.73m2 5485288979) DUSTY (test code = DUSTY) Association of [...] tests). Lab Interpretation Abnormal (test code = 40778-5) [facility] Screen - ONCE [id number] 11:55:01 Test Item Value Reference Range Interpretation Comments ABO & RH (test code A POSITIVE Performe d at [facility] = 20) Laboratory Serv [facility] [address] [facility] s [address]Tbst Free: [phone] A No. [id number] IAT (test code = Negative Performed a t [facility] 1185) Laboratory Serv [facility] [address] [facility] [address]Qgol Free: [phone] A No. [id number] [facility] / [id number] 11:29:46 Test Item Value Reference Range Interpretation Comments PROTIME PATIENT (test See_Comment [Auto mated message] code = 5964-2) The system [employer] generated this result transmitted ref erence range: 10.1 - 1 2.6 Seconds. The re ference range was not u sed to interpret this result as normal/abnor mal. INR (test code = 6301-6) Nor mal INR <1.1; Warfarin Therap eutic range 2.0 to 3. 0 or 2.5 to 3.5, dep ending upon the indica tions. Lab Interpretation (test Normal code = 26161-3) [facility] THRMPLAS [id number] 11:29:46 Test Item Value Reference Range Interpretation Comments APTT Patient (test code See_Comment L [Au tomated message] = 3173-2) The system [employer] generated this result transmitted ref erence range: 26 - 36 Seconds. The reference range was not used to int erpret this result as normal/abnormal . Lab Interpretation (test Abnormal code = 11962-4) [facility] WITH [id number] 11:22:42 Test Item Value Reference Range Interpretation [...] RDW-SD (test code = 47.0 fL 39.0-49.9 93828-1) RDW-CV (test code = 13.8 % 12.0-15.5 788-0) PLT (test code = See_Comment [Automated 777-3) message] The sy stem which generated this result transmitted reference range : 166 - 358 10*3/ ?L. The reference r mekhi was not used to interpret this result as normal/abnormal . MPV (test code = 10.8 fL 9.5-12.9 48953-5) NRBC/100 WBC (test See_Comment [Automat ed code = 9504538977) message] The system which generated this result transmitted reference range : 0.0 - 10.0 /100 WBCs. The refer ence range was not u sed to interpret th is result as normal/abnormal . NRBC x10^3 (test code <0.01 See_Comment [Auto mated = 9189076966) message] The s ystem which generated this result transmitted reference range : 10*3/?L. The reference range was not used to interpret this result as normal/abnormal . GRAN MAT (NEUT) % 89.4 % (test code = 770-8) IMM GRAN % (test code 0.50 % = 7097541498) LYMPH % (test code = 7.0 % 736-9) MONO % (test code = 3.0 % 5905-5) EOS % (test code = 0.0 % 713-8) BASO % (test code = 0.1 % 706-2) GRAN MAT x10^3(ANC) 9.90 10*3/uL 1.88-7.09 H (test code = 6633073542) IMM GRAN x10^3 (test 0.05 10*3/uL 0.00-0.06 code = 0407512524) LYMPH x10^3 (test code 0.78 10*3/uL 1.32-3.29 L = 731-0) MONO x10^3 (test code 0.33 10*3/uL 0.33-0.92 = 742-7) EOS x10^3 (test code = <0.03 0.03-0.39 L 711-2) BASO x10^3 (test code <0.03 0.01-0.07 = 704-7) Lab Interpretation Abnormal (test code = 79980-8) [facility]"
--- NOTE | 2022-08-26 11:28 | RAD REPORT ---
EXAM DESCRIPTION: CT - CTHCSPWOC - 08/26/2022 11:18 am CLINICAL HISTORY: Trauma, head and neck injury. fall, head injury, neck pain, hx of cervical prob COMPARISON: C Spine Wo Con dated 08/28/2021 TECHNIQUE: Axial 5 mm thick images of the head were obtained. Axial 2 mm thick images of the cervical spine were obtained with sagittal and coronal reconstruction images generated and reviewed. All CT scans are performed using dose optimization technique as appropriate and may include automated exposure control or mA/KV adjustment according to patient size. FINDINGS: CT HEAD WITHOUT CONTRAST: No acute hemorrhage, hydrocephalus or extra-axial collection is identified.No areas of brain edema or midline shift. The paranasal sinuses and mastoids are clear.The calvarium is intact. CT CERVICAL SPINE WITHOUT CONTRAST: No fracture or subluxation.No prevertebral soft tissues swelling is identified. Unfused posterior arc h of C1. Cervical spondylosis with uncovertebral joint hypertrophy and posterior disc osteophyte comp lexes at the C5-6 and C6-7 levels. There is evidence of neural foraminal narrowing bilaterally. Mild central spinal stenosis suspected at C6-7. IMPRESSION: No acute intracranial or cervical spine findings.
--- NOTE | 2022-08-26 12:37 | EDPHYS ---
Physician Documentation [facility] Name: Anne Marie Dubon Age: 47 yrs Sex: Female : 1975 Arrival Date: 08/26/2022 Time: 10:39 Bed DIS1 Private MD: ED Physician Kevin Vallejo HPI: 08/26 11:01 This 47 yrs old Female presents to ER via Unassigned with complaints of Fall Injury - rn 2.11, Neck and Upper Back Pain, Numbness. 11:01 Details of fall: The patient fell from an upright position. Onset: The symptoms/episode rn began/occurred 3 day(s) ago. Associated injuries: The patient sustained neck injury. Severity of symptoms: At their worst the symptoms were mild, in the emergency department the symptoms are unchanged. The patient has not experienced similar symptoms in the past. The patient has not recently seen a physician. Pt reports fall from standing, fell backwards and thinks injured neck. Does not recall all events. REports chronic neck pain with herniated discs. Since fall has experienced left neck/arm pain. No LOC. No blood thinners. No other injury. . RN SUPPORT SERVICES: 11:28 LMP N/A - control method jl7 Historical: - Allergies: 11:28 Codeine; jl7 11:28 Hydrocodone-Acetaminophen; jl 11:28 PENICILLINS; jl7 - Home Meds: 11:28 None [Active]; jl7 - PMHx: 11:28 Ovarian cysts; jl7 - PSHx: 11:28 Cholecystectomy; tubal ; jl7 - Immunization history:: Client reports having NOT received the Covid vaccine. - Social history:: Smoking status: Patient reports the use of cigarette tobacco products, smokes one-half pack cigarettes per day. - Family history:: not pertinent. - Hospitalizations: : No recent hospitalization is reported. ROS: 11:01 Constitutional: Negative for fever, chills, and weight loss, Eyes: Negative for injury, rn pain, redness, and discharge, Neck: + neck pain and injury Cardiovascular: Negative for chest pain, palpitations, and edema, Respiratory: Negative for shortness of breath, cough, wheezing, and pleuritic chest pain, Abdomen/GI: Negative for abdominal pain, nausea, vomiting, diarrhea, and constipation, Back: Negative for injury and pain, MS/Extremity: Negative for injury and deformity, Skin: Negative for injury, rash, and discoloration, Neuro: Negative for weakness, numbness, tingling, and seizure. Exam: 11:01 Constitutional: This is a well developed, well nourished patient who is awake, alert, rn and in no acute distress. Ambulatory to triage. Head/Face: Normocephalic, atraumatic. Eyes: Periorbital areas with no swelling, redness, or edema. Neck: NO midline cervical tenderness Cardiovascular: Regular rate and rhythm. No pulse deficits. Respiratory: No increased work of breathing, no retractions or nasal flaring. Skin: Warm, dry with normal turgor. Normal color with no rashes, no lesions, and no evidence of cellulitis. MS/ Extremity: Pulses equal, no cyanosis. Neurovascular intact. Full, normal range of motion. Equal circumference. Neuro: Awake and alert, GCS 15, oriented to person, place, time, and situation. Cranial nerves II-XII grossly intact. Motor strength 5/5 in all extremities. Sensory grossly intact. Cerebellar exam normal. Normal gait. Vital Signs: 11:26 BP 135 / 87; Pulse 67; Resp 15; Temp 97; Pulse Ox 100% ; Weight 92.99 kg; Height 5 ft. jl7 5 in. (165.10 cm); Pain 8/10; 11:26 Body Mass Index 34.11 (92.99 kg, 165.10 cm) jl7 MDM: 10:41 Patient medically screened. rn 12:29 Differential diagnosis: closed head injury, fracture, sprain, strain, radiculopathy. rn Data reviewed: vital signs, nurses notes, radiologic studies, CT scan, and as a result, I will discharge patient. Independent interpretation of the following test(s) in the Emergency Department CT Scan: My interpretation is CT head and cspine neg for hemorrhage or fracture. Counseling: I had a detailed discussion with the patient and/or guardian regarding: the historical points, exam findings, and any diagnostic results supporting the discharge/admit diagnosis, radiology results, the need for outpatient follow up, to return to the emergency department if symptoms worsen or persist or if there are any questions or concerns that arise at home. Response to treatment: the patient's symptoms have mildly improved after treatment, and as a result, I will discharge patient. Special discussion: I discussed with the patient/guardian in detail that at this point there is no indication for admission to the hospital. It is understood, however, that if the symptoms persist or worsen the patient needs to return immediately for re-evaluation. Based on the history and exam findings, there is no indication for further emergent testing or inpatient evaluation. I discussed with the patient/guardian the need to see the primary care provider for further evaluation of the symptoms. 08/26 10:59 Order name: CT Head C Spine rn 08/26 11:29 Order name: CT; Complete Time: 12:06 EDMS Administered Medications: No medications were administered Disposition Summary: 08/26/22 12:36 Discharge Ordered Location: Home rn Problem: new rn Symptoms: have improved rn Condition: Stable rn Diagnosis - Contusion of unspecified part of neck, initial encounter rn - Sprain of ligaments of cervical spine, initial encounter rn - Radiculopathy, cervical region rn Followup: rn - With: Private Physician - When: As needed - Reason: Recheck today's complaints, Re-evaluation by your physician Discharge Instructions: - Discharge Summary Sheet rn - Cervical Radiculopathy rn - Neuropathic Pain rn - Neck Contusion rn - Cervical Sprain rn Forms: - Medication Reconciliation Form rn - Thank You Letter rn - Antibiotic property management intern - Prescription Opioid Use rn Prescriptions: - Cyclobenzaprine 10 mg Oral Tablet - take 1 tablet by ORAL route every 8 hours As needed; 15 tablet; Refills: 0, rn Product Selection Permitted - Medrol (Vipin) 4 mg Oral Tablets, Dose Pack - take 1 tablet by ORAL route as directed - follow package instructions; 1 rn packet; Refills: 0, Product Selection Permitted Signatures: Dispatcher [employer] Kevin Gutierres MD MD rn Leal, Jahala, RN RN jl7
--- NOTE | 2022-08-26 12:37 | ER ---
Nurse's Notes [facility] Name: Anne Marie Dubon Age: 47 yrs Sex: Female : 1975 Arrival Date: 08/26/2022 Time: 10:39 Bed DIS1 Private MD: Diagnosis: Contusion of unspecified part of neck, initial encounter;Sprain of ligaments of cervical spine, initial encounter;Radiculopathy, cervical region Presentation: 08/26 11:26 Chief complaint: Patient states: Slipped and fell x 4 days ago, reports left side neck jl7 pain with numbness. Coronavirus screen: Vaccine status: Patient reports being unvaccinated. At this time, the client does not indicate any symptoms associated with coronavirus-19. Ebola Screen: No symptoms or risks identified at this time. Initial Sepsis Screen: Does the patient meet any 2 criteria? No. Patient's initial sepsis screen is negative. Does the patient have a suspected source of infection? No. Patient's initial sepsis screen is negative. Risk Assessment: Do you want to hurt yourself or someone else? Patient reports no desire to harm self or others. Onset of symptoms was August 23, 2022. 11:26 Method Of Arrival: Ambulatory jl7 11:26 Acuity: JULIA 3 jl7 Triage Assessment: 11:28 General: Appears in no apparent distress. uncomfortable, Behavior is calm, cooperative, jl7 appropriate for age. Pain: Complains of pain in neck Pain currently is 8 out of 10 on a pain scale. GREENSKEEPER HEAD: 11:28 LMP N/A - control method jl7 Historical: - Allergies: 11:28 Codeine; jl7 11:28 Hydrocodone-Acetaminophen; jl7 11:28 PENICILLINS; jl7 - Home Meds: 11:28 None [Active]; jl7 - PMHx: 11:28 Ovarian cysts; jl7 - PSHx: 11:28 Cholecystectomy; tubal ; jl7 - Immunization history:: Client reports having NOT received the Covid vaccine. - Social history:: Smoking status: Patient reports the use of cigarette tobacco products, smokes one-half pack cigarettes per day. - Family history:: not pertinent. - Hospitalizations: : No recent hospitalization is reported. Screenin:42 [facility] ED Fall Risk Assessment (Adult) History of falling in the last 3 months, ap3 including since admission No falls in past 3 months (0 pts). Abuse screen: Denies threats or abuse. Nutritional screening: No deficits noted. Tuberculosis screening: No symptoms or risk factors identified. Vital Signs: 11:26 BP 135 / 87; Pulse 67; Resp 15; Temp 97; Pulse Ox 100% ; Weight 92.99 kg; Height 5 ft. jl7 5 in. (165.10 cm); Pain 8/10; 11:26 Body Mass Index 34.11 (92.99 kg, 165.10 cm) jl7 ED Course: 10:39 Patient arrived in ED. as 10:41 Kevin Vallejo MD is Attending Physician. rn 11:28 Triage completed. jl7 11:28 Arm band placed on right wrist. Patient placed in waiting room, Patient notified of jl7 wait time. 12:42 Rubi Noyola, JOHANNA is Primary Nurse. ap3 12:42 Patient has correct armband on for positive identification. ap3 12:42 No provider procedures requiring assistance completed. ap3 12:42 Patient did not have IV access during this emergency room visit. ap3 Administered Medications: No medications were administered Medication: 12:42 VIS not applicable for this client. ap3 Outcome: 12:36 Discharge ordered by . rn 12:42 Discharged to home ambulatory. ap3 12:42 Condition: good 12:42 Discharge instructions given to patient, Instructed on discharge instructions, follow up and referral plans. Demonstrated understanding of instructions, follow-up care, medications, Prescriptions given X 2. 12:42 Patient left the ED. ap3 Signatures: Montserrat Sumner as Kevin Vallejo MD MD rn Leal, Jahala, RN RN [facility] Rubi Noyola RN RN ap3
[2022-08-26 13:16] VITALS: BP 135/87; TEMP 97; O2SAT 100
== END 2022-08-26 12:42 | disposition home or self-care (01) ==
LOC: ER 10:35
DX: S13.4XXA Sprain of ligaments of cervical spine, initial encounter (principal); M54.12 Radiculopathy, cervical region; S10.93XA Contusion of unspecified part of neck, initial encounter
CPT/HCPCS: 70450; 72125

== ENCOUNTER 2022-12-01 19:51 | Emergency (ER) | payer SELFPAY ==
--- OUTSIDE RECORDS SUMMARY | 2022-12-01 20:02 | XMS REPORT | Continuity of Care Document ---
:[address] [facility] t Address [address] [place] [address]. [address] [place] [address] Care Team Providers Name Role Phone NICOLE PEREZ Primary Care Physician Unavailable AMIE DEJESUS Attending Clinician Unavailable Meg Silver LCSW Attending Clinician David Churchill MD Attending Clinician DAVID CHURCHILL Attending Clinician Unavailable Doctor Unassigned, [place] Attending Clinician Unavailable Leyla Julien RN Attending Clinician Unavailable ANGELITA CUENCA Attending Clinician Unavailable Bang Mcdonnell MD, Angelita Attending Clinician Daniella Joe Attending Clinician SHEBA CAPONE Attending Clinician Unavailable [facility] Attending Clinician Unavailable Casa Anderson Attending Clinician Sheba Chavez Attending Clinician [phone] DAVID CHURCHILL Admitting Clinician Unavailable Payers Payer Name Policy Type Policy Number Effective Date Expiration Date S ource [facility] [id number] Problems Condition Condition Condition Status Onset Resolution Last Treating Co mments Source Name Details Category Date Date Treatment Clinician Date Cervical Cervical Disease Active Unive rs stenosis stenosis 2-16 ity of of spine of spine 00:00: [address] Branch Abnormalit Abnormalit Disease Active 2019-0 U nivers y of right y of right 12-14 [place] of breast on breast [place] 00 [place]ha mammogram mammogram Bran ch Right Right Disease Active Overview: Univer s ovarian ovarian 12-14 Formattin ity o f cyst cyst 00:00: g of this 00 note Medical might be Branch different [...] for Disease Active U nivers STD STD -29 ity of (sexually (sexually [place] transmitte transmitte 00 Me dical d disease) d disease) Br anch BMI BMI Disease Active 2018- Univers 31.0-31.9, 31.0-31.9, 5-29 it y of adult adult 00:00: Medical Branch Positive Positive Disease Active Unive rs depression depression - it [place] of [place] S/P tubal S/P tubal Disease Active Uni vers ligation ligation - ity of 00:00: Medical Branch Trichomona Trichomona Disease Active U nivers l l - ity of vulvovagin vulvovagin [place] it[place] 00 Medical Branch Menorrhagi Menorrhagi Disease Active U nivers a with a with 5-29 ity of regular regular 00:00: [place] cycle cycle Medical Branch Enlarged Enlarged Disease Active Unive rs uterus uterus - ity of 00:00: Medical Branch S/P tubal S/P tubal Disease Active Uni vers ligation ligation -29 ity of 00:00: 00 Medical Branch Menorrhagi Menorrhagi Disease Active 2019- U nivers a with a with 5-29 ity of regular regular 00:00: cycle cycle [...] 00 Medical Branch Codeine Propensi Active Rash 2007-0 Univers ty to 08-04 ity of adverse 00:00: [place] reaction 00 Medical s Branch CODEINE DRUG Active Rash 2007-0 Univers INGREDI 08-04 ity of 00:00: [place] 00 Medical Branch Social History Social Habit Start Date Stop Date Quantity Comments Source History of tobacco 1998-12-08 Cigarette Smoker University of use 00:00:00 [facility] History [facility] University o f Alcohol Std Drinks [facility] History [facility] University o f Alcohol Binge [facility] al Branch Exposure to 2022-09-01 2022-09-11 Not sure University of SARS-CoV-2 (event) 00:00:00 09:01:00 [facility] Alcohol intake 2022-09-11 2022-09-11 Current drinker Unive rsity of 00:00:00 00:00:00 of alcohol [facility] [place] [facility] (finding) Branch Cigarettes smoked 2018-12-08 2018-12-08 Univers ity of current (pack per 00:00:00 00:00:00 [facility] edical ) - Reported Branch Alcohol Comment 2018-12-08 2018-12-08 ocassional Universit y of 00:00:00 00:00:00 [facility] Tobacco use and 2018-12-08 2018-12-08 Smokeless tobacco Un iversity of exposure 00:00:00 00:00:00 non-user [facility] Sex Ass[birth year] At [birth year] Universit y of 00:00:00 00:00:00 [facility] Smoking Status Start Date Stop Date Source Smokes tobacco daily 2018-12-08 00:00:00 Univers ity of [facility] Medications Ordered Filled Start Stop Current Ordering Indication Dosage Frequency Signature Comments Components Source Medication Medication Date Date Medication? Clinician (SIG) Name Name gabapentin Yes [id number] 300mg Take 1 Univers 300 mg 3-07 capsule by ity of capsule 00:00: mouth 3 [place] [address] (three) Medical times [place] daily as needed for Pain (scale 7-10). gabapentin Yes [id number] 300mg Take 1 Univers 300 mg 3-07 capsule by ity of capsule 00:00: mouth 3 [place] 00 (three) Medical times [place] daily as needed for Pain (scale 7-10). FENTanyl PF No 25ug 25 mcg, Un jose (SUBLIMAZE 08-29 Slow IV ity o f (PF)) 17:30: 16:24 Push, [place] injection 00 :00 ONCE, 1 Medical 25 mcg dose, On [facility] 08/29/21 at 1130, Routine famotidine Yes 20mg 20 mg, Unive rs (PEPCID AC) 2-17 Oral, BID, it y of tablet 20 14:00: [place] 00 on [facility] 08/29/21 at [place] 0800, Until Discontinu ed, Routine docusate Yes 100mg 100 mg, Unive rs (COLACE) 2-17 Oral, BID, ity o f capsule 100 14:00: First dose [place] mg 00 on [facility] 08/29/21 at [place] 0800, Until Discontinu ed, Routine gabapentin 2021-0 Yes 300mg 300 mg, Uni vers (NEURONTIN) 2-17 Oral, TID, it y of capsule 300 14:00: First dose [place] mg 00 on [facility] 08/29/21 at [place] 0800, Until Discontinu ed, Routine traMADoL 0 Yes 50mg 50 mg, Univers (ULTRAM) 08-29 Oral, ity of tablet 50 03:35: Q6HPRN, [place] mg 17 Starting Medical on Thu Branch 08/28/21 at 2135, Until Discontinu ed, Routine, Pain (scale 4-6) acetaminoph 2021-0 Yes 325mg 325 mg, Un jose en 08-29 Oral, ity of (TYLENOL) 03:35: Q6HPRN, [place] tablet 325 11 Starting Medic al mg on Thu Branch 08/28/21 at 2135, Until Discontinu ed, Routine, Pain (scale 1-3) bisacodyL 2021-0 Yes 10mg 10 mg, Univer s (DULCOLAX) 08-29 Rectal, ity of suppository 03:32: QHSPRN, [place] 10 mg 01 Starting Medical on Thu Branch 08/28/21 at 2132, Until Discontinu ed, Routine, Constipati on NaCl 0.9% 0 Yes 5mL 5 mL, Slow Un jose (NS) 08-29 IV Push, ity of injection 5 03:32: PRN - [place] mL 01 INSTRUCT Medical NS, Branch Starting on Thu08/28/21 at 2132, Until Discontinu ed, 10 mL methylPREDN 2021-0 Yes [id number] Take by [facility] ISolone 4 2-17 mouth ity of mg tablets 00:00: [place]-INSTRU [place] 00 CTIONS. Medical follow Branch package directions methylPREDN 2-0 Yes [id number] Take by [facility] ISolone 4 2-17 mouth ity of mg tablets 00:00: [place] 00 CTIONS. Medical follow Branch package directions methylPREDN 2-0 Yes [id number] Take by Univers ISolone 4 2-17 mouth ity of mg tablets 00:00: [place] CTIONS. Medical follow Branch package directions methylPREDN 2022-0 Yes [id number] Take by [facility] ISolone 4 2-17 mouth ity of mg tablets 00:00: [place]-INSTRU [place] 00 CTIONS. Medical follow Branch package directions methylPREDN 2022-0 Yes [id number] Take by [facility] ISolone 4 2-17 mouth ity of mg tablets 00:00: [place]-INSTRU [place] CTIONS. Medical follow Branch package directions methylPREDN 2022-0 Yes [id number] Take by Univers ISolone 4 2-17 mouth ity of mg tablets 00:00: [place]-INSTRU [place] 00 CTIONS. Medical follow Branch package directions methylPREDN 2-0 Yes [id number] Take by Univers ISolone 4 2-17 mouth ity of mg tablets 00:00: [place]-INSTRU [place] 00 CTIONS. Medical follow Branch package directions methylPREDN 2-0 Yes [id number] Take by Univers ISolone 4 2-17 mouth ity of mg tablets 00:00: [place]-INSTRU [place] 00 CTIONS. Medical follow Branch package directions methylPREDN 2-0 Yes [id number] Take by Univers ISolone 4 2-17 mouth ity of mg tablets 00:00: [place]-INSTRU [place] 00 CTIONS. Medical follow Branch package directions methylPREDN 2-0 Yes [id number] Take by Univers ISolone 4 2-17 mouth ity of mg tablets 00:00: SEE-INSTRU [place] 00 CTIONS. Medical follow Branch package directions methylPREDN 2-0 Yes [id number] Take by Univers ISolone 4 2-17 mouth ity of mg tablets 00:00: [place]-INSTRU [place] 00 CTIONS. Medical follow Branch package directions methylPREDN 2-0 Yes [id number] Take by Univers ISolone 4 2-17 mouth ity of mg tablets 00:00: [place]-INSTRU [place] 00 CTIONS. Medical follow Branch package directions gabapentin 2021-0 202- No [id number] 300mg Take 1 Univers 300 mg 2-17 03-20 capsule by ity of capsule 00:00: 04:59 mouth 3 [place] 00 :00 (three) Medical times Branch daily for 30 days. gabapentin 2021-0 202- No [id number] 300mg Take 1 Univers 300 mg 2-17 03-20 capsule by ity of capsule 00:00: 04:59 mouth 3 [place] 00 :00 (three) Medical times Branch daily for 30 days. gabapentin 2021-0 2021- No [id number] 300mg Take 1 Univers 300 mg 2-17 03-20 capsule by ity of capsule 00:00: 04:59 mouth 3 [place] 00 :00 (three) Medical times Branch daily for 30 days. LOESTRIN 2018- No [id number] 1{tbl} Take 1 Univers (MICROGESTI 5-29 07-29 tablet by it y of N FE 08/01) 00:00: 00:00 mouth [place] 1 mg-20 mcg 00 :00 daily. Medica l (21)/75 mg Branch (7) tablet LOESTRIN 2018- No [id number] 1{tbl} Take 1 Univers (MICROGESTI 5-29 07-29 tablet by it y of N FE 08/01) 00:00: 00:00 mouth [place] 1 mg-20 mcg 00 :00 daily. Medica l (21)/75 mg Branch (7) tablet LOESTRIN 2018- No [id number] 1{tbl} Take 1 Univers (MICROGESTI 5-29 07-29 tablet by it y of N FE 08/01) 00:00: 00:00 mouth [place] 1 mg-20 mcg 00 :00 daily. Medica l (21)/75 mg Branch (7) tablet LOESTRIN 2018- No [id number] 1{tbl} Take 1 Univers (MICROGESTI 5-29 07-29 tablet by it y of N FE 08/01) 00:00: 00:00 mouth [place] 1 mg-20 mcg 00 :00 daily. Medica l (21)/75 mg Branch (7) tablet No known No Univers medications [facility] No known No Univers medications [facility] No known No Univers medications [facility] No known No Univers medications [place] [facility] Vital Signs Vital Name Observation Time Observation Value Comments Source Body height 2022-09-11 15:15:00 165.1 cm [facility] Body weight 2022-09-11 15:15:00 92.987 kg [facility] BMI 2022-09-11 15:15:00 34.11 kg/m2 [facility] Systolic blood 2021-08-29 18:00:00 107 mm[Hg] Univer sity [facility] Diastolic blood 2021-08-29 18:00:00 58 mm[Hg] Unive rsity of [facility] Heart rate 2021-08-29 18:00:00 61 /min [facility] [place] [facility] Body temperature 2021-08-29 18:00:00 36.44 Rika Univ ers[facility] [place] [facility] Respiratory rate 2021-08-29 18:00:00 20 /min Univ [facility] [place] [facility] Oxygen saturation in 2021-08-29 18:00:00 100 /min University Arterial blood by [facility] Pulse oximetry Branch Body height 2021-08-29 03:37:00 165.1 cm [facility] [place] [facility] Body weight 2021-08-29 01:00:00 86.183 kg [facility] [place] [facility] BMI 2021-08-29 01:00:00 31.62 kg/m2 [facility] [place] [facility] Systolic blood 2019-02-23 20:12:00 129 mm[Hg] Univer sity of pressure [place] [facility] Diastolic blood 2019-02-23 20:12:00 74 mm[Hg] Unive rsity of pressure [place] [facility] Heart rate 2019-02-23 20:12:00 57 /min [facility] [place] [facility] Body temperature 2019-02-23 20:12:00 36.11 Rika [facility] [place] [facility] Respiratory rate 2019-02-23 20:12:00 16 /min Univ [facility] [place] [facility] Body height 2019-02-23 20:12:00 165.1 cm [facility] [place] [facility] Body weight 2019-02-23 20:12:00 85.333 kg [facility] [place] [facility] BMI 2019-02-23 20:12:00 31.31 kg/m2 [facility] [place] [facility] Systolic blood 2019-02-07 20:37:00 116 mm[Hg] Univer sity of pressure [place] [facility] Diastolic blood 2019-02-07 20:37:00 80 mm[Hg] Unive rsity of pressure [place] [facility] Body temperature 2019-02-07 20:32:00 36.44 Rika [facility] [place] [facility] Respiratory rate 2019-02-07 20:32:00 16 /min Univ [facility] [place] [facility] Body height 2019-02-07 20:32:00 165.1 cm [facility] [place] [facility] Body weight 2019-02-07 20:32:00 85.276 kg [facility] [place] [facility] BMI 2019-02-07 20:32:00 31.28 kg/m2 [facility] Procedures Procedure Date / Time Performing Clinician Source Performed CONSENT/REFUSAL FOR 2022-09-11 15:02:05 [facility]igned[facility] Name [facility] AUTHORIZATION FOR 2021-09-23 05:01:00 Doctor Unassigned, No [facility] RELEASE OF PHI Name [facility] EXTERNAL PROVIDER 2021-09-05 06:01:00 Doctor Unassigned, No [facility] RECORDS Name [facility] ABORH CONFIRMATION (LAB 2021-08-29 11:40:00 Maximiliano Nelson [facility] ONLY) [facility] HB ABO GROUPING 2021-08-29 11:06:00 Maximiliano Nelson [facility] BASIC METABOLIC PANEL 2021-08-29 11:05:00 Maximiliano Nelson [facility] (NA, K, CL, CO2, [facility] GLUCOSE, BUN, CREATININE, CA) CBC WITH DIFF 2021-08-29 11:05:00 Maximiliano Nelson [facility] PROTHROMBIN TIME / INR 2021-08-29 11:05:00 [facility] 2021-08-29 11:05:00 Maximiliano Nelson [facility] Encounters Start End Encounter Admission Attending Care Care Encounter Source Date/Time Date/Time Type Type Clinicians Facility Department ID 2022-10-23 2022-10-23 Outpatient Licha DEJESUS [facility] [id number] Univers 00:00:00 00:00:00 AMIE steele [facility] 2022-09-22 2022-09-22 Patient Nadeem [facility] [id number] Univers 00:00:00 00:00:00 Outreach [employer] [id number] i ty of [place] 4.2.7.2.686 Zacshaista de leon [place] [id number] [address] OFFICE BUILDING 2022-09-16 2022-09-16 Telephone Mohit [facility] [id number] Univers 00:00:00 00:00:00 David Egodeus [id number] it y [place] [id number] [address] OFFICE BUILDING 2022-09-11 2022-09-11 Office KATHY Churchill [id number] Univers 09:20:00 09:40:00 Visit David RENTERIA [id number] it y [place].686 [place] [id number] [address] OFFICE BUILDING 2022-09-11 2022-09-11 Outpatient R DAVID CHURCHILL [facility] [id number] Univers 09:20:00 09:20:00 DAVID CHURCHILL [facility] 2022-09-11 2022-09-11 Orders Doctor CAIT 1.2.840.114 [id number] Univers 00:00:00 00:00:00 Only Unassigned, CAROLYN [id number] ity of [place] [facility] 4.2.7.2.686 Zac as [id number] [facility] 009 Branch 2022-08-26 2022-08-26 Nurse CAIT Julien [id number] Univers 00:00:00 00:00:00 Triage Leyla CAROLYN [id number] it y of HOSPITAL 4.2.7.2.686 [place] [id number] [address] 2022-08-26 2022-08-26 Telephone Mohit MNSAVANA [id number] Univers 00:00:00 00:00:00 David HEALTH [id number] it y [place] [id number] [address] OFFICE BUILDING 2022-01-21 2022-01-21 Outpatient DAVID YOO [facility] [id number] Univers 11:00:00 11:00:00 DAVID CHURCHILL [facility] 2021-11-12 2021-11-12 Outpatient DAVID YOO [facility] [id number] Univers 15:00:00 15:00:00 DAVID CHURCHILL [facility] 2021-10-222021-10-22 Outpatient R DAVID CHURCHILL [facility] [id number] Univers 14:30:00 14:30:00 DAVID CHURCHILL [facility] 2021-10-14 2021-10-14 Outpatient R BANG [facility] [id number] Univers 11:01:18 23:59:00 [facility] ity o f [facility] 2021-10-14 2021-10-14 [facility] 1.2.840.114 [id number] Univers 11:01:18 23:59:00 Encounter [facility] [id number] ity [place] [id number] [address] OFFICE BUILDING 2021-09-23 2021-09-23 Orders Doctor CAIT 1.2.840.114 [id number] Univers 00:00:00 00:00:00 Only Unassigned, CAROLYN 350.1.13.10 ity of [place] [facility] 4.2.7.2.686 Zac as [id number] [address] 2021-09-05 2021-09-05 Orders Doctor CAIT 1.2.840.114 [id number] Univers 00:00:00 00:00:00 Only Unassigned, CAROLYN 350.1.13.10 ity of [place] [facility] 4.2.7.2.686 Zac as [id number] [address] 2021-08-28 2021-08-29 Outpatient U DAVID CHURCHILL [facility] [id number] Univers 20:51:00 14:00:00 DAVID CHURCHILL ivette [facility] 2021-08-28 2021-08-29 [facility] Mohit MARCIA 1.2.840.114 [id number] Univers 20:51:00 14:00:00 Encounter David LEON 350.1.13.10 ity of HOSPITAL 4.2.7.2.686 Zac as [id number] [facility] 097 Branch 2020-09-24 2020-09-24 Outpatient R [facility] [id number] Univers 16:00:00 16:00:00 ity of [facility] 2020-08-09 2020-08-09 Telephone [facility] 1.2.840.114 [id number] Univers 00:00:00 00:00:00 Daniella Ballesteros LEAD CUSTODIAN 350.1.13.10 it y of [facility] 4.2.7.2.686 Zac as MATERNAL [id number] [facility] CHILD [address] [place] [address] 2020-07-17 2020-07-17 Outpatient R AGUSTINA [facility] [id number] Univers 08:45:00 08:45:00 SHEBA foley [facility] 2020-07-12 2020-07-12 Telephone [facility] 1.2.840.114 [id number] Univers 00:00:00 00:00:00 Daniella Ballesteros LEAD CUSTODIAN 350.1.13.10 it y of [place] [id number] Zac as MATERNAL [id number] [facility] CHILD [address] [place] [address] 2019-02-23 2019-02-23 [facility] 1.2 .840.114 [id number] [facility] 14:57:22 15:24:24 Visit Casa Marshall LEAD CUSTODIAN 350.1.13.10 ity of [place] [id number] Zac as MATERNAL [id number] [facility] CHILD [address] [place] [address] 2019-02-08 2019-02-08 Nurse Visit, Shruthirodger Nurse [facility] 1.2 .840.114 [id number] [facility] 16:05:21 16:13:38 Visit Sheba Capone LEAD CUSTODIAN 350.1.13. 10 ity of [facility] 42.7.2.686 Zac as MATERNAL [id number] [facility] CH[facility] [address] [place] [address] 2019-02-07 2019-02-07 Office Rolando MNSAVANA 1.2.840.[id number] [place] [address] 14:48:45 16:29:10 Visit Casa Hurt LEAD CUSTODIAN 350.1.13.10 ity of [facility] 4.2.7.2.686 Zac as MATERNAL [id number] [facility] CHILD [address] [place] [address] Results Test Description Test Time Test Comments Results Result Comments Source ABORH Confirmation (Lab Only) 2021-08-29 13:30:16 Test Item Value Reference Range Interpretation Comme nts ABO & RH (test code = 20) A Positive Pe rformed at [facility] Laboratory Services - [facility] Blood [address] [place], [place] [address]Yiis Free: [phone] No. [id number] [facility] (NA, K, CL, CO2, GLUCOSE, BUN, CREATININE, CA)2021-08-29 12:14:34 Test Item Value Reference Range Interpretation Comments NA (test code = 135 mmol/L 135-145 8505526864) K (test code = 4.3 mmol/L 3.5-5.0 7225211510) CL (test code = 108 mmol/L 98-108 3041017492) CO2 TOTAL (test code = 22 mmol/L 23-31 L 7005895572) AGAP (test code = 2-16 6457395049) BUN (test code = 12 mg/dL 7-23 9052206294) GLUCOSE (test code = 131 mg/dL 70-110 H 5125768579) CREATININE (test code = 0.70 mg/dL 0.50-1.04 5263337986) CALCIUM (test code = 8.3 mg/dL 8.6-10.6 L 2251995170) eGFR (test code = mL/min/1.73m2 0023535342) DUSTY (test code = DUSTY) Association of [...] tests). Lab Interpretation Abnormal (test code = 91263-1) [facility] Screen - ONCE [id number] 11:55:01 Test Item Value Reference Range Interpretation Comments ABO & RH (test code A POSITIVE Performe d at [facility] = 20) Laboratory Serv [facility] Blood Bank3 01 [facility] s [address]Scgd Free: [phone] A No. [id number] IAT (test code = Negative Performed a t [facility] 1185) Laboratory Serv [facility] Blood Bank3 01 [facility] s [address]Upke Free: [phone] A No. [id number] [facility] CenterPROTHROMBIN TIME / [id number] 11:29:46 Test Item Value Reference Range Interpretation Comments PROTIME PATIENT (test See_Comment [Auto mated message] code = 5964-2) The system [employer] generated this result transmitted ref erence range: 10.1 - 1 2.6 Seconds. The re ference range was not u sed to interpret this result as normal/abnor mal. INR (test code = 6301-6) Nor mal INR <1.1; Warfarin Therap eutic range 2.0 to 3. 0 or 2.5 to 3.5, dep ending upon the indica tions. Lab Interpretation (test Normal code = 22384-3) [facility] CenterACTIV[facility] PARTIAL THRMPLAS [id number] 11:29:46 Test Item Value Reference Range Interpretation Comments APTT Patient (test code See_Comment L [Au tomated message] = 3173-2) The system whic h generated this result transmitted ref erence range: 26 - 36 Seconds. The reference range was not used to int erpret this result as normal/abnormal . Lab Interpretation (test Abnormal code = 67612-0) [facility] WITH [id number] 11:22:42 Test Item Value Reference Range Interpretation Comments WBC (test code = See_Comment [Automated 1790-2) message] The sy stem which generated this [...] RDW-SD (test code = 47.0 fL 39.0-49.9 73036-1) RDW-CV (test code = 13.8 % 12.0-15.5 788-0) PLT (test code = See_Comment [Automated 777-3) message] The sy stem which generated this result transmitted reference range : 166 - 358 10*3/ ?L. The reference r mekhi was not used to interpret this result as normal/abnormal . MPV (test code = 10.8 fL 9.5-12.9 72460-0) NRBC/100 WBC (test See_Comment [Automat ed code = 1435967553) message] The system which generated this result transmitted reference range : 0.0 - 10.0 /100 WBCs. The refer ence range was not u sed to interpret th is result as normal/abnormal . NRBC x10^3 (test code <0.01 See_Comment [Auto mated = 7162610702) message] The s ystem which generated this result transmitted reference range : 10*3/?L. The reference range was not used to interpret this result as normal/abnormal . GRAN MAT (NEUT) % 89.4 % (test code = 770-8) IMM GRAN % (test code 0.50 % = 0015094185) LYMPH % (test code = 7.0 % 736-9) MONO % (test code = 3.0 % 5905-5) EOS % (test code = 0.0 % 713-8) BASO % (test code = 0.1 % 706-2) GRAN MAT x10^3(ANC) 9.90 10*3/uL 1.88-7.09 H (test code = 2890873137) IMM GRAN x10^3 (test 0.05 10*3/uL 0.00-0.06 code = 7345802635) LYMPH x10^3 (test code 0.78 10*3/uL 1.32-3.29 L = 731-0) MONO x10^3 (test code 0.33 10*3/uL 0.33-0.92 = 742-7) EOS x10^3 (test code = <0.03 0.03-0.39 L 711-2) BASO x10^3 (test code <0.03 0.01-0.07 = 704-7) Lab Interpretation Abnormal (test code = 47684-8) [facility]"
[2022-12-01] MEDS ORDERED: NA CHLORIDE 0.9% 1,000 ML ONE (22:01)
[2022-12-01] MEDS ORDERED: MORPHINE 4 MG/ML SYR ONE (22:01)
[2022-12-01] MEDS ORDERED: ONDANSETRON 4 MG/2 ML VIAL ONE (22:01)
[2022-12-01] MEDS ORDERED: FENTANYL CITR 100 MCG/2 ML ONE (23:05)
[2022-12-01 23:10] LABS: Absolute Lymphocytes (CBC) 0.7 K/uL (0.7-4.9); Hematocrit 40.3 % (36.0-45.0); Lymphocytes % 6.6 % (15.3-44.8); MCV 90.7 fL (80-100); MPV 8.5 fL (7.6-11.3); RBC Red Blood Cell Count 4.44 M/uL (3.86-4.86)
[2022-12-01 23:33] LABS: Bilirubin Total 0.6 mg/dL (0.2-1.0); Potassium 3.8 mEq/L (3.5-5.1); Protein, Total 8.1 g/dL (6.4-8.2)
[2022-12-02] MEDS ORDERED: KETOROLAC 30 MG/ML INJ ONE (01:03)
[2022-12-02 02:44] LABS: Urine Bacteria <20 /HPF (<20); Urine Bilirubin NEGATIVE (Negative); Urine Blood 3+ (Negative); Urine Clarity Clear (Clear); Urine Color Light-Yellow (Yellow); Urine Glucose NEGATIVE (Negative); Urine Mucus Slight /HPF (None Seen); Urine Protein TRACE (Negative); Urine Urobilinogen 1+ (Normal); Urine pH 5.5 (5.0-7.0)
[2022-12-02 02:47] LABS: Blood Morphology Comment NOT SEEN (NOT SEEN); Platelet Estimate ADEQ
[2022-12-02 02:50] LABS: Specific Gravity > 1.035 (1.005-1.030)
[2022-12-02 02:51] LABS: Specific Gravity > 1.035 (1.005-1.030)
--- NOTE | 2022-12-02 02:55 | ER ---
Nurse's Notes [facility] Name: Anne Marie Dubon Age: 47 yrs Sex: Female : 1975 Arrival Date: 12/01/2022 Time: 19:51 Bed 6 Private MD: Diagnosis: Infectious gastroenteritis and colitis, unspecified;Vomiting diarrhea, acute gastroenteritis, GI upset Presentation: 12/01 20:57 Chief complaint: Patient states: I don't know if it is my appendix but i feel like i am kd3 being stabbed and i am very nauseous and i am vomiting. Coronavirus screen: Vaccine status: Patient reports being unvaccinated. Ebola Screen: No symptoms or risks identified at this time. Initial Sepsis Screen: Does the patient meet any 2 criteria? No. Patient's initial sepsis screen is negative. Does the patient have a suspected source of infection? No. Patient's initial sepsis screen is negative. Risk Assessment: Do you want to hurt yourself or someone else? Patient reports no desire to harm self or others. Onset of symptoms was December 01, 2022. 20:57 Method Of Arrival: Ambulatory kd3 20:57 Acuity: JULIA 3 kd3 Triage Assessment: 20:59 General: Appears uncomfortable, Behavior is calm, cooperative. Pain: Complains of pain kd3 in right lower quadrant. GI: Abdomen is non-distended. 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 - Social history:: Smoking status: unknown. Screenin/23 00:46 [facility] ED Fall Risk Assessment (Adult) History of falling in the last 3 months, vc1 including since admission No falls in past 3 months (0 pts) Confusion or Disorientation No (0 pts) Intoxicated or Sedated No (0 pts) Impaired Gait No (0 pts) Mobility Assist Device Used No (0 pt) Altered Elimination No (0 pt) Score/Fall Risk Level 0 - 2 = Low Risk Oriented to surroundings, Maintained a safe environment, Educated pt \T\ family on fall prevention, incl call for assistance when getting out of bed. Abuse screen: Denies threats or abuse. Nutritional screening: No deficits noted. Tuberculosis screening: No symptoms or risk factors identified. Assessment: 12/01 23:00 Reassessment: No changes from previously documented assessment. Patient and/or family vc1 updated on plan of care and expected duration. Pain level reassessed. Patient is alert, oriented x 3, equal unlabored respirations, skin warm/dry/pink. Patient states symptoms have not improved. 12/02 00:00 Reassessment: Patient and/or family updated on plan of care and expected duration. Pain vc1 level reassessed. Patient is alert, oriented x 3, equal unlabored respirations, skin warm/dry/pink. Patient states symptoms have improved. 03:08 GI: Bowel sounds present X 4 quads. Abdomen is tender to palpation in right lower kd3 quadrant. Vital Signs: 12/01 20:57 BP 159 / 94; Pulse 72; Resp 19; Temp 97.8(O); Pulse Ox 100% on R/A; Weight 92.99 kg; kd3 Height 5 ft. 5 in. ; 23:00 BP 151 / 79; Pulse 59; Resp 14; Pulse Ox 99% ; vc1 12/02 00:00 BP 134 / 60; Pulse 58; Resp 17; Pulse Ox 97% on R/A; vc1 01:00 BP 114 / 61; Pulse 67; Resp 16; Pulse Ox 98% ; vc1 02:31 BP 98 / 73; Pulse 56; Resp 19; Pulse Ox 100% on R/A; kd3 03:07 BP 105 / 63; Pulse 67; Resp 15; Pulse Ox 99% on R/A; kd3 12/01 20:57 Body Mass Index 34.11 (92.99 kg, 165.1 cm) kd3 ED Course: 12/01 19:55 Patient arrived in ED. ja2 20:17 Kemar Montez PA is PHCP. jmm 20:17 Ha Ghotra MD is Attending Physician. m 20:59 Triage completed. kd3 20:59 Arm band placed on left wrist. kd3 22:07 CBC with Diff Sent. kd3 22:07 CMP Sent. kd3 22:07 Lipase Sent. kd3 22:45 Lab(s) recollected, by me, sent to lab. wm 22:56 IV discontinued, intact, bleeding controlled, No redness/swelling at site. wm 22:57 Inserted saline lock: 20 gauge in left antecubital area, using aseptic technique. Blood wm collected. 22:57 CBC with Diff Sent. wm 22:57 CMP Sent. wm 22:57 Lipase Sent. wm 23:00 Patient has correct armband on for positive identification. Bed in low position. Call vc1 light in reach. Client placed on continuous cardiac and pulse oximetry monitoring. NIBP monitoring applied. 12/02 00:43 Kami Baez, RN is Primary Nurse. vc1 00:59 CT Abd/Pelvis - IV Contrast Only In Process Unspecified. EDMS 02:30 Urinalysis w/ reflexes Sent. kd3 02:30 Test, Urine Sent. kd3 03:08 No provider procedures requiring assistance completed. IV discontinued, intact, kd3 bleeding controlled, No redness/swelling at site. Pressure dressing applied. Administered Medications: 12/01 22:07 Drug: NS 0.9% IV 1000 ml Route: IV; Rate: 1 bolus; Site: right antecubital; 3 12/02 03:09 Follow up: IV Status: Completed infusion; IV Intake: 1000ml kd3 12/01 22:07 Drug: Ondansetron IVP 4 mg Route: IVP; Site: right antecubital; 12/02 03:09 Follow up: Response: No adverse reaction; Nausea is decreased 3 12/01 22:07 Drug: morphine IVP or IV 4 mg Route: IVP; Infused Over: 4 mins; Site: right antecubital;12/02 03:09 Follow up: Response: No adverse reaction; Pain is unchanged, physician notified kd3 12/01 23:00 Drug: fentaNYL (PF) IVP 50 mcg Route: IVP; Site: left antecubital; 1 12/02 03:09 Follow up: Response: No adverse reaction; Pain is decreased kd3 01:00 Drug: Ketorolac IVP 30 mg Route: IVP; Site: left antecubital; vc1 03:09 Follow up: Response: No adverse reaction; Pain is decreased kd3 03:00 Drug: morphine IVP or IV 4 mg Route: IVP; Infused Over: 4 mins; Site: left antecubital; kd3 03:09 Follow up: Response: No adverse reaction; Pain is decreased kd3 03:00 Drug: metoCLOPramide IVP 10 mg Route: IVP; Site: left antecubital; kd3 03:09 Follow up: Response: No adverse reaction kd3 Medication: 00:48 VIS not applicable for this client. vc1 Intake: 03:09 IV: 1000ml; Total: 1000ml. kd3 Outcome: 02:55 Discharge ordered by . sp4 03:08 Discharged to home ambulatory. kd3 03:08 Condition: stable 03:08 Discharge instructions given to patient, family, Instructed on discharge instructions, follow up and referral plans. medication usage, Demonstrated understanding of instructions, follow-up care, medications. 03:10 Patient left the ED. kd3 Signatures: Dispatcher [employer] EDMS Kemar Montez PA PA jmm Marsh, Wendy wm Alexander, Jessica ja2 Sonia Sheikh RN RN kd3 Kami Baez RN RN vc1 Ha Ghotra MD MD sp4
--- NOTE | 2022-12-02 02:55 | EDPHYS ---
Physician Documentation [facility] Name: Anne Marie Dubon Age: 47 yrs Sex: Female : 1975 Arrival Date: 12/01/2022 Time: 19:51 Bed 6 Private MD: ED Physician Ha Ghotra HPI: 12/01 21:01 This 47 yrs old Female presents to ER via Ambulatory with complaints of Abdominal Pain, jmm Nausea. 21:01 The patient presents with abdominal pain. Onset: The symptoms/episode began/occurred jmm gradually, today. The symptoms do not radiate. Associated signs and symptoms: Pertinent positives: nausea. The symptoms are described as sharp. Modifying factors: The symptoms are alleviated by nothing, the symptoms are aggravated by nothing. The patient has not experienced similar symptoms in the past. 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 - Social history:: Smoking status: unknown. ROS: 21:01 Constitutional: Negative for fever, chills, and weight loss, Cardiovascular: Negative jmm for chest pain, palpitations, and edema, Respiratory: Negative for shortness of breath, cough, wheezing, and pleuritic chest pain. 21:01 Abdomen/GI: Positive for nausea. 21:01 All other systems are negative. Exam: 21:01 Constitutional: This is a well developed, well nourished patient who is awake, alert, jmm and in no acute distress. Head/Face: atraumatic. Eyes: EOMI, no conjunctival erythema appreciated ENT: Moist Mucus Membranes Neck: Trachea midline, Supple Chest/axilla: Normal chest wall appearance and motion. Cardiovascular: Regular rate and rhythm. No edema appreciated Respiratory: Normal respirations, no respiratory distress appreciated 21:01 Back: Normal ROM Skin: General appearance color normal MS/ Extremity: Moves all extremities, no obvious deformities appreciated, no edema noted to the lower extremities Neuro: Awake and alert Psych: Behavior is normal, Mood is normal, Patient is cooperative and pleasant 21:01 Abdomen/GI: Inspection: abdomen appears normal, Bowel sounds: normal, Palpation: soft, mild abdominal tenderness, in the right lower quadrant. Vital Signs: 20:57 BP 159 / 94; Pulse 72; Resp 19; Temp 97.8(O); Pulse Ox 100% on R/A; Weight 92.99 kg; kd3 Height 5 ft. 5 in. ; 23:00 BP 151 / 79; Pulse 59; Resp 14; Pulse Ox 99% ; vc1 12/02 00:00 BP 134 / 60; Pulse 58; Resp 17; Pulse Ox 97% on R/A; vc1 01:00 BP 114 / 61; Pulse 67; Resp 16; Pulse Ox 98% ; vc1 02:31 BP 98 / 73; Pulse 56; Resp 19; Pulse Ox 100% on R/A; kd3 03:07 BP 105 / 63; Pulse 67; Resp 15; Pulse Ox 99% on R/A; 3 12/01 20:57 Body Mass Index 34.11 (92.99 kg, 165.1 cm) [facility] MDM: 12/01 21:01 Patient medically screened. [facility] 12/02 02:51 Differential diagnosis: gastritis, pancreatitis, appendicitis, diverticulitis, viral sp4 gastroenteritis, gastroenteritis. Data reviewed: vital signs, nurses notes, old medical records, lab test result(s), radiologic studies, doppler. ED course: CT abdomen and pelvis with IV contrast -no acute abdominal pelvic findings, no evidence of acute appendicitis, fluid-filled small and large bowel contents can be seen in the setting of diarrheal illness. Prominent left-sided ovarian follicles and cysts with largest measuring 3 cm. Patient reported some left lower abdominal pain and she will be given additional pain medicine as well as prescriptions for pain nausea and diarrhea to take at home. Patient will be stable to discharge home. 12/01 21:01 Order name: CBC with Diff; Complete Time: 02:51 [facility] 12/01 21:01 Order name: CMP; Complete Time: 23:46 [facility] 12/01 21:01 Order name: Lipase; Complete Time: 23:46 [facility] 12/01 21:01 Order name: Test, Urine; Complete Time: 02:53 [facility] 12/01 23:36 Order name: Manual Differential; Complete Time: 02:51 [facility] 12/02 01:53 Order name: Urinalysis w/ reflexes; Complete Time: 02:51 [facility] 12/01 21:01 Order name: CT Abd/Pelvis - IV Contrast Only; Complete Time: 17:25 [facility] 12/01 21:01 Order name: IV Saline Lock; Complete Time: 22:07 [facility] 12/01 21:01 Order name: Labs collected and sent; Complete Time: 22:07 [facility] Administered Medications: 12/01 22:07 Drug: NS 0.9% IV 1000 ml Route: IV; Rate: 1 bolus; Site: right antecubital; 3 12/02 03:09 Follow up: IV Status: Completed infusion; IV Intake: 1000ml 3 12/01 22:07 Drug: Ondansetron IVP 4 mg Route: IVP; Site: right antecubital; 3 12/02 03:09 Follow up: Response: No adverse reaction; Nausea is decreased 3 12/01 22:07 Drug: morphine IVP or IV 4 mg Route: IVP; Infused Over: 4 mins; Site: right antecubital;kd3 12/02 03:09 Follow up: Response: No adverse reaction; Pain is unchanged, physician notified kd3 12/01 23:00 Drug: fentaNYL (PF) IVP 50 mcg Route: IVP; Site: left antecubital; 1 12/02 03:09 Follow up: Response: No adverse reaction; Pain is decreased kd3 01:00 Drug: Ketorolac IVP 30 mg Route: IVP; Site: left antecubital; vc1 03:09 Follow up: Response: No adverse reaction; Pain is decreased kd3 03:00 Drug: morphine IVP or IV 4 mg Route: IVP; Infused Over: 4 mins; Site: left antecubital; kd3 03:09 Follow up: Response: No adverse reaction; Pain is decreased kd3 03:00 Drug: metoCLOPramide IVP 10 mg Route: IVP; Site: left antecubital; kd3 03:09 Follow up: Response: No adverse reaction kd3 Disposition: 02:51 Co-signature as Attending Physician, Ha Ghotra MD I agree with the assessment sp4 and plan of care. I reviewed the patient's care provided by Advanced Practice Provider \T\ agree w/ the diagnosis \T\ care plan. I personally saw the pt \T\ performed a substantive portion of the visit, incldng all aspects of the (History/Exam/Medical Decision Making). Disposition Summary: 12/02/22 02:55 Discharge Ordered Location: Home sp4 Problem: new sp4 Symptoms: have improved sp4 Condition: Stable sp4 Diagnosis - Infectious gastroenteritis and colitis, unspecified sp4 - Vomiting diarrhea, acute gastroenteritis, GI upset sp4 Followup: sp4 - With: Private Physician - When: 5 - 6 days - Reason: Recheck today's complaints Discharge Instructions: - Discharge Summary Sheet sp4 - Diarrhea, Adult, [id number] sp4 Forms: - Medication Reconciliation Form sp4 Prescriptions: - naproxen sodium 500 mg Oral Tablet, ER Multiphase 24 hr - take 1 tablet by ORAL route every 12 hours; 30 tablet; Refills: 0, Product sp4 Selection Permitted - Zofran 4 mg Oral Tablet - take 1 tablet by ORAL route every 6 hours As needed PRN nausea; 30 tablet; sp4 Refills: 0, Product Selection Permitted - Lomotil 2.5-0.025 mg Oral Tablet - take 1 tablet by ORAL route every 6 hours As needed PRN diarrhea; 30 tablet; sp4 Refills: 0, Product Selection Permitted Signatures: Dispatcher [employer] EDKemar Guerrero PA PA jmm Doucette, Kyli, RN RN kd3 Kami Baez RN RN vc1 Ha Ghotra MD MD sp4
[2022-12-02] MEDS ORDERED: MORPHINE 4 MG/ML SYR ONE (03:01)
[2022-12-02] MEDS ORDERED: METOCLOPRAMIDE 10 MG/2mL INJ ONE (03:01)
[2022-12-02] MEDS ORDERED: NA CHLORIDE 0.9% 50 ML ONE (03:02)
[2022-12-02 03:41] VITALS: TEMP 97.8
[2022-12-02 03:58] VITALS: BP 105/63; O2SAT 99
--- NOTE | 2022-12-02 13:42 | RAD REPORT ---
EXAM DESCRIPTION: Abdomen Pelvis W Contrast CLINICAL HISTORY: 47 years Female right lower abdominal pain COMPARISON: CT abdomen pelvis 05/28/2018. TECHNIQUE: CT of the abdomen and pelvis with intravenous contrast. All CT scans at this facility use dose modulation, iterative reconstruction, and/or weight based dosi ng when appropriate to reduce radiation dose to as low as reasonably achievable. FINDINGS: Lower thorax: Lung bases are clear. Small hiatal hernia. Abdomen: Stomach: Within normal limits Liver: No focal lesions. Postcholecystectomy prominence of the biliary ductal system. Gallbladder: Surgically absent. Pancreas: Within normal limits Spleen: Within normal limits Right kidney: No hydronephrosis. No focal lesion. Left kidney: No hydronephrosis. No focal lesion. Adrenal glands: Within normal limits Vascular structures: Within normal limits Nodes: No lymphadenopathy by size criteria Pelvis: Small bowel: No significant distention. Fluid-filled contents. Appendix: Within normal limits Colon: No distention or acute pericolonic edema. Fluid-filled contents. Peritoneum: No free intraperitoneal fluid or air. Bones: No acute bone findings. Bladder: Unremarkable. Reproductive organs: No acute findings. Prominent left-sided ovarian follicles/cysts, largest measuri ng 3 cm. Hypodensity in the cervix, likely nabothian cyst. Soft tissues: Tiny fat-containing umbilical and supraumbilical ventral abdominal hernias. IMPRESSION: 1. No acute abdominopelvic findings. No evidence of acute appendicitis. 2. Fluid-filled small and large bowel contents, can be seen in setting of diarrheal illness. 3. Prominent left-sided ovarian follicles/cysts, largest measuring 3 cm. No follow-up imaging is re commended. Electronically signed by: Maite Beltrán MD 12/02/2022 2:32 AM CDT Due to temporary technical issues with the PACS/Fluency reporting system, reports are being signed by the in house radiologists without review as a courtesy to insure prompt reporting. The interpreting radiologist is fully responsible for the content of the report.
== END 2022-12-02 03:10 | disposition home or self-care (01) ==
LOC: ER 19:51
DX: K52.9 Noninfective gastroenteritis and colitis, unspecified (principal)
CPT/HCPCS: 36415; 74177; 80053; 81001; 81025; 83690; 85025; 99284; J2405; J2765; J3010; J7030; Q9967

== ENCOUNTER 2023-03-10 17:17 | Emergency (ER) | payer OTHER ==
--- OUTSIDE RECORDS SUMMARY | 2023-03-10 17:21 | XMS REPORT | Continuity of Care Document ---
:1975 Author Organization [facility] t Address [address] [facility]. [address] [place] [address] Care Team Providers Name Role Phone Aime Rolle Primary Care Physician VICTOR MANUEL DOMÍNGUEZ Attending Clinician Unavailable Messi Miner Attending Clinician Ernie Irby Attending Clinician VICTOR MANUEL DOMÍNGUEZ Attending Clinician Unavailable AMIE DEJESUS Attending Clinician Unavailable Meg Silver LCSW Attending Clinician David Churchill MD Attending Clinician DAVID CHURCHILL Attending Clinician Unavailable Doctor Unassigned, [place] Attending Clinician Unavailable Leyla Julien RN Attending Clinician Unavailable ANGELITA CYR Attending Clinician Unavailable Bang Mcdonnell MD, Chilvana Attending Clinician Daniella Joe Attending Clinician SHEBA CAPONE Attending Clinician Unavailable [facility] Attending Clinician Unavailable Casa Anderson Attending Clinician Sheba Chavez Attending Clinician [phone] DAVID CHURCHILL Admitting Clinician Unavailable Payers Payer Name Policy Type Policy Number Effective Date Expiration Date S cedrick GENERIC OTHER [id number] 2022 2022 00:00:00 00:00:00 JUDY JORGENSEN - [id number] 2022 [employer] 00:00:00 [facility] [id number] HEALTHCARE Problems Condition Condition Condition Status Onset Resolution Last Treating Co mments Source Name Details Category Date Date Treatment Clinician Date Displaced Displaced Disease Active [place] fracture fracture 8-15 Health of lateral of lateral 00:00: malleolus malleolus 00 of right of right fibula, fibula, initial initial encounter encounter for closed for closed fracture fracture Displaced Displaced Disease Active [place] bimalleola bimalleola 8-15 He alth r fracture r fracture 00:00: of right of right 00 lower leg, lower leg, initial initial encounter encounter for open for open fracture fracture type I or type I or II II Cervical Cervical Disease Active Unive rs stenosis stenosis 2-16 ity of of spine of spine 00:00: [place] 00 Medical Branch Abnormalit Abnormalit Disease Active U nivers y of right y of right 604 it y of breast on breast [place] 00:[place] screening screening 00 Med[place] asha mammogram mammogram Bran ch Right Right Disease Active Overview: Univer s ovarian ovarian - Formattin ity o f cyst cyst 00:00: g of this [place] 00 note Medical might be Branch different [...] BMI BMI Disease Active Univers 31.0-31.9, 31.0-31.9, 5-29 it y of adult adult 00:00: [place] 00 Medical Branch Positive Positive Disease Active Unive rs depression depression 12-08 it y of screening screening [place] S/P tubal S/P tubal Disease Active Uni vers ligation ligation 12-08 ity of 00:00: [place] 00 Medical Branch Trichomona Trichomona Disease Active U nivers l l 12-08 ity of vulvovagin vulvovagin [place] it[place] itis Medical [place] Menorrhagi Menorrhagi Disease Active U nivers a with a with 12-08 ity of regular regular 00:00: [place] cycle cycle Medical Branch Enlarged Enlarged Disease Active Unive rs uterus uterus 12-08 ity of 00:00: [place] 00 Medical Branch S/P tubal S/P tubal Disease Active Uni vers ligation ligation 12-08 ity of 00:00: [place] [facility] Menorrhagi Menorrhagi Disease Active U nivers a with a with 12-08 ity of regular regular 00:00: [place] cycle cycle Medical Branch Allergies, Adverse Reactions, Alerts Allergy Allergy Status Severity Reaction(s) Onset Inactive Treating Comm ents Source Name Type Date Date Clinician Penicill Drug Active Hives 2018- Univers in Allergy 12-08 ity of 00:00: [place] 00 Medical Branch PENICILL DRUG Active Med Hives Univers IN INGREDI 12-08 ity of 00:00: [place] 00 Medical Branch Penicill Drug Active Hives Univers in Allergy 12-08 ity of 00:00: [place] [facility] Penicill Allergy Active Rash 2017-07 [place] ins to 0-30 Health substanc 00:00: e 00 Amoxicil Propensi Active Hives Univer s alverto ty to 1-23 ity of adverse 00:00: [place] reaction 00 Medical s Branch AMOXICIL DRUG Active Hives 2017- Univers ALVERTO INGREDI 1-23 ity of 00:00: [place] 00 Medical Branch Hydrocod Propensi Active Nausea 2015-07 Univer s one-Acet ty to and/or 2-21 ity of aminophe adverse Vomiting 00:00: [place] n reaction 00 Medical s Branch HYDROCOD DRUG Active N/V 2015-07 Univers ONE-ACET 2-21 ity of AMINOPHE 00:00: [place] N 00 Medical Branch Codeine Allergy Active Rash 2007- [place] to 08-04 Health substanc 00:00: e 00 Codeine Propensi Active Rash 2007- Univers ty to 08-04 ity of adverse 00:00: [place] reaction 00 Medical s Branch CODEINE DRUG Active Rash Univers INGREDI 08-04 ity of 00:00: [place] 00 Medical Branch Social History Social Habit Start Date Stop Date Quantity Comments Source History of tobacco 1998-12-08 Cigarette Smoker University of use 00:00:00 [place] [facility] History [facility] o f Alcohol Frequency [facility] edical Branch History [facility] o f Alcohol Std Drinks [place] [facility] History [facility] o f Alcohol Binge [facility] al Branch Exposure to 2022-09-01 2022-09-11 Not sure University of SARS-CoV-2 (event) 00:00:00 09:01:00 [facility] Alcohol intake 2022-09-11 2022-09-11 Current drinker Unive rsity of 00:00:00 00:00:00 of alcohol [facility] [place] (finding) Branch Cigarettes smoked 2018-12-08 2018-12-08 Univers ity of current (pack per 00:00:00 00:00:00 [facility] ) - Reported Branch Alcohol Comment 2018-12-08 2018-12-08 ocassional Universit y of 00:00:00 00:00:00 [facility] Tobacco use and 2018-12-08 2018-12-08 Smokeless tobacco Un iversity of exposure 00:00:00 00:00:00 non-user [facility] Sex [facility]igned At [birth year] [facility] 00:[facility]:00 Smoking Status Start Date Stop Date Source Tobacco smoking consumption [facility] unknown Smokes tobacco daily 2018-12-08 00:00:00 Univers ity of [facility] Medications Ordered Filled Start Stop Current Ordering Indication Dosage Frequency Signature Comments Components Source Medication Medication Date Date Medication? Clinician (SIG) Name Name sulfamethox 2022- Yes [id number] 1{tbl} Q.5D Take 1 UT azole-trime 03-05 tablet by Desmond goyal thoprim 00:00: 04:59 mouth in (Bactrim 00 :00 the DS) 800-160 morning MG tablet and 1 tablet in the evening. Do all this for 7 days. traMADol Yes [id number] 50mg Q6H Take 1 UT (Ultram) 50 -16 tablet (50 He alth MG tablet 00:00: mg total) 00 by mouth every 6 (six) hours if needed for severe pain. methocarbam 2022- Yes [id number] 500mg Take 1 UT ol 02-25 tablet Health (Robaxin) 00:00: 04:59 (500 mg 500 MG 00 :00 total) by tablet mouth every 8 (eight) hours if needed for muscle spasms for up to 10 days. sulfamethox 2022- Yes [id number] 1{tbl} Q.5D Take 1 UT azole-trime 02-25 tablet by He alth thoprim 00:00: 04:59 mouth in (Bactrim 00 :00 the DS) 800-160 morning MG tablet and 1 tablet in the evening. Do all this for 7 days. oxyCODONE 2022- No [id number] 5mg Q6H Take 1 U T (Roxicodone 02-21 tablet (5 He alth ) 5 MG 00:00: 04:59 mg total) immediate 00 :00 by mouth release every 6 tablet (six) hours if needed for severe pain for up to 6 days. gabapentin 2022- Yes [id number] 300mg Q.[id number] Take 1 UT (Neurontin) 02-16 [id number] capsule Health 300 MG 00:00: 04:59 3D (300 mg capsule 00 :00 total) by mouth in the morning and 1 capsule (300 mg total) at noon and 1 capsule (300 mg total) in the evening. gabapentin 2022- Yes [id number] 300mg Q.[id number] Take 1 UT (Neurontin) 02-16 [id number] capsule Health 300 MG 00:00: 04:59 3D (300 mg capsule 00 :00 total) by mouth in the morning and 1 capsule (300 mg total) at noon and 1 capsule (300 mg total) in the evening. methocarbam 2022- No [id number] 500mg Take 1 UT ol 8-07 08-16 tablet Health (Robaxin) 00:00: 00:00 (500 mg 500 MG 00 :00 total) by tablet mouth 1 (one) time each day if needed for muscle spasms for up to 20 days. methocarbam 3-0 Yes [id number] 500mg Q.25D Take 1 UT ol 7-27 tablet Health (Robaxin) 00:00: (500 mg 500 MG 00 total) by tablet mouth in the morning and 1 tablet (500 mg total) at noon and 1 tablet (500 mg total) in the evening and 1 tablet (500 mg total) before bedtime. Do all this for 10 days. methocarbam 2023-0 Yes [id number] 500mg Q.25D Take 1 UT ol 7-27 tablet Health (Robaxin) 00:00: (500 mg 500 MG 00 total) by tablet mouth in the morning and 1 tablet (500 mg total) at noon and 1 tablet (500 mg total) in the evening and 1 tablet (500 mg total) before bedtime. Do all this for 10 days. gabapentin 2022-0 Yes [id number] 300mg Take 1 Univers 300 mg 3-07 capsule by ity of capsule 00:00: mouth 3 00 (three) Medical times [place] daily as needed for Pain (scale 7-10). gabapentin 2022-0 Yes [id number] 300mg Take 1 Univers 300 mg 3-07 capsule by ity of capsule 00:00: mouth 3 00 (three) Medical times [place] daily as needed for Pain (scale 7-10). FENTanyl PF 2021-2021- No 25ug 25 mcg, Un jose (SUBLIMAZE 08-29 Slow IV ity o f (PF)) 17:30: 16:24 Push, [place] injection 00 :00 ONCE, 1 Medical 25 mcg dose, On Branch [facility] 08/29/21 at 1130, Routine famotidine 0 Yes 20mg 20 mg, Unive rs (PEPCID AC) 2-17 Oral, BID, it y of tablet 20 14:00: [place] 00 on [facility] 08/29/21 at Branch 0800, Until Discontinu ed, Routine docusate 0 Yes 100mg 100 mg, Unive rs (COLACE) 2-17 Oral, BID, ity o f capsule 100 14:00: First dose [place] mg 00 on [facility] 08/29/21 at Branch 0800, Until Discontinu ed, Routine gabapentin 2021-0 Yes 300mg 300 mg, Uni vers (NEURONTIN) 217 Oral, TID, it y of capsule 300 14:00: First dose [place] mg 00 on [facility] 08/29/21 at Branch 0800, Until Discontinu ed, Routine traMADoL 2021-0 Yes 50mg 50 mg, Univers (ULTRAM) 08-29 Oral, ity of tablet 50 03:35: Q6HPRN, [place] mg 17 Starting Medical on Thu [place] 08/28/21 at 2135, Until Discontinu ed, Routine, Pain (scale 4-6) acetaminoph 0 Yes 325mg 325 mg, Un jose en 08-29 Oral, ity of (TYLENOL) 03:35: Q6HPRN, [place] tablet 325 11 Starting Medic al mg on Thu [place] 08/28/21 at 2135, Until Discontinu ed, Routine, Pain (scale 1-3) bisacodyL 0 Yes 10mg 10 mg, Univer s (DULCOLAX) 08-29 Rectal, ity of suppository 03:32: QHSPRN, [place] 10 mg 01 Starting Medical on Thu [place] 08/28/21 at 2132, Until Discontinu ed, Routine, Constipati on NaCl 0.9% 0 Yes 5mL 5 mL, Slow Un jose (NS) 08-29 IV Push, ity of injection 5 03:32: PRN - SEE [place] mL 01 [facility], Branch Starting on Thu08/28/21 at 2132, Until Discontinu ed, 10 mL methylPREDN 2021-0 Yes [id number] Take by [facility] ISolone 4 2-17 mouth ity of mg tablets 00:00: [place]-INSTRU [place] 00 CTIONS. Medical follow Branch package directions methylPREDN 2021-0 Yes [id number] Take by [facility] ISolone 4 2-17 mouth ity of mg tablets 00:00: [place]-INSTRU [place] 00 CTIONS. Medical follow Branch package directions methylPREDN 2021-0 Yes [id number] Take by [facility] ISolone 4 2-17 mouth ity of mg tablets 00:00: SEE-INSTRU [place] 00 CTIONS. Medical follow Branch package directions methylPREDN 2022-0 Yes [id number] Take by Univers ISolone 4 2-17 mouth ity of mg tablets 00:00: SEE-INSTRU [place] 00 CTIONS. Medical follow Branch package directions methylPREDN 2022-0 Yes [id number] Take by Univers ISolone 4 2-17 mouth ity of mg tablets 00:00: SEE-INSTRU [place] 00 CTIONS. Medical follow Branch package directions methylPREDN 2022-0 Yes [id number] Take by Univers ISolone 4 2-17 mouth ity of mg tablets 00:00: SEE-INSTRU [place] 00 CTIONS. Medical follow Branch package directions methylPREDN 2021-0 Yes [id number] Take by Univers ISolone 4 2-17 mouth ity of mg tablets 00:00: SEE-INSTRU [place] 00 CTIONS. Medical follow Branch package directions methylPREDN 2021-0 Yes [id number] Take by Univers ISolone 4 2-17 mouth ity of mg tablets 00:00: SEE-INSTRU [place] 00 CTIONS. Medical follow Branch package directions methylPREDN 2021-0 Yes [id number] Take by Univers ISolone 4 2-17 mouth ity of mg tablets 00:00: SEE-INSTRU [place] 00 CTIONS. Medical follow Branch package directions methylPREDN 2-0 Yes [id number] Take by Univers ISolone 4 2-17 mouth ity of mg tablets 00:00: SEE-INSTRU [place] 00 CTIONS. Medical follow Branch package directions methylPREDN 2022-0 Yes [id number] Take by Univers ISolone 4 2-17 mouth ity of mg tablets 00:00: SEE-INSTRU [place] 00 CTIONS. Medical follow Branch package directions methylPREDN 2-0 Yes [id number] Take by Univers ISolone 4 2-17 mouth ity of mg tablets 00:00: SEE-INSTRU [place] 00 CTIONS. Medical follow Branch package directions gabapentin 2021-0 202- No [id number] 300mg Take 1 Univers 300 mg 2-17 03-20 capsule by ity of capsule 00:00: 04:59 mouth 3 [place] 00 :00 (three) Medical times Branch daily for 30 days. gabapentin 202-0 202- No [id number] 300mg Take 1 Univers 300 mg 2-17 03-20 capsule by ity of capsule 00:00: 04:59 mouth 3 [place] 00 :00 (three) Medical times Branch daily for 30 days. gabapentin 2021- No [id number] 300mg Take 1 Univers 300 mg 2-17 03-20 capsule by ity of capsule 00:00: 04:59 mouth 3 [place] 00 :00 (three) Medical times Branch daily for 30 days. LOESTRIN 2018- No [id number] 1{tbl} Take 1 Univers (MICROGESTI 5-29 07-29 tablet by it y of N FE 08/01) 00:00: 00:00 mouth [place] 1 mg-20 mcg 00 :00 daily. Medica l (21)/75 mg Branch (7) tablet LOESTRIN 2018- No [id number] 1{tbl} Take 1 Univers (MICROGESTI 5-29 07-29 tablet by it y of N FE 08/01) 00:00: 00:00 mouth [place] 1 mg-20 mcg 00 :00 daily. Medica l (21)/75 mg Branch (7) tablet LOESTRIN 2018- No [id number] 1{tbl} Take 1 Univers (MICROGESTI 5-29 07-29 tablet by it y of N FE 08/01) 00:00: 00:00 mouth [place] 1 mg-20 mcg 00 :00 daily. Medica l (21)/75 mg Branch (7) tablet LOESTRIN 2018- No [id number] 1{tbl} Take 1 Univers (MICROGESTI 5-29 07-29 tablet by it y of N FE 08/01) 00:00: 00:00 mouth [place] 1 mg-20 mcg 00 :00 daily. Medica l (21)/75 mg Branch (7) tablet No known No Univers medications ity [facility] No known No Univers medications ity [facility] No known No [facility] No known No Univers medications [facility] Vital Signs Vital Name Observation Time Observation Value Comments Source Body height 2022-09-11 15:15:00 165.1 cm Universi [facility] Body weight 2022-09-11 15:15:00 92.987 kg Universi ty of [place] [facility] [place] BMI 2022-09-11 15:15:00 34.11 kg/m2 Universi ty of [place] [facility] Systolic blood 2021-08-29 18:00:00 107 mm[Hg] Univer sity of pressure [place] [facility] Diastolic blood 2021-08-29 18:00:00 58 mm[Hg] Unive rsity of [facility] Heart rate 2021-08-29 18:00:00 61 /min Universi ty of [facility] Body temperature 2021-08-29 18:00:00 36.44 Rika Univ ersity of [facility] Respiratory rate 2021-08-29 18:00:00 20 /min Univ ersity of [facility] Oxygen saturation in 2021-08-29 18:00:00 100 /min [facility] Arterial blood by [facility] Pulse oximetry Branch Body height 2021-08-29 03:37:00 165.1 cm Universi ty of [facility] Body weight 2021-08-29 01:00:00 86.183 kg Universi ty of [place] [facility] [place] BMI 2021-08-29 01:00:00 31.62 kg/m2 Universi ty of [place] [facility] Systolic blood 2019-02-23 20:12:00 129 mm[Hg] Univer sity of pressure [facility] [place] Branch Diastolic blood 2019-02-23 20:12:00 74 mm[Hg] Unive rsity of [facility] Heart rate 2019-02-23 20:12:00 57 /min Universi ty of [facility] Body temperature 2019-02-23 20:12:00 36.11 Rika Univ ersity of [facility] Respiratory rate 2019-02-23 20:12:00 16 /min Univ ersity of [facility] [place] Branch Body height 2019-02-23 20:12:00 165.1 cm Universi ty of [place] [facility] [place] Body weight 2019-02-23 20:12:00 85.333 kg Universi ty of [place] [facility] BMI 2019-02-23 20:12:00 31.31 kg/m2 Universi ty of [place] [facility] Systolic blood 2019-02-07 20:37:00 116 mm[Hg] Univer sity of pressure [facility] Diastolic blood 2019-02-07 20:37:00 80 mm[Hg] Unive rsity of pressure [facility] Body temperature 2019-02-07 20:32:00 36.44 Rika [facility] Respiratory rate 2019-02-07 20:32:00 16 /min [facility] Body height 2019-02-07 20:32:00 165.1 cm [facility] Body weight 2019-02-07 20:32:00 85.276 kg [facility] BMI 2019-02-07 20:32:00 31.28 kg/m2 [facility] Procedures Procedure Date / Time Performing Clinician Source Performed CONSENT/REFUSAL FOR 2022-09-11 15:02:05 [facility] Name [facility] AUTHORIZATION FOR 2021-09-23 05:01:00 Doctor Unassigned, No [facility] RELEASE OF PHI Name Medical Branch EXTERNAL PROVIDER 2021-09-05 06:01:00 Doctor Unassigned, No [facility] RECORDS Name Medical [place] ABORH CONFIRMATION (LAB 2021-08-29 11:40:00 Maximiliano Nelson [facility] ONLY) Medical Branch HB ABO GROUPING 2021-08-29 11:06:00 Maximiliano Nelson [facility] BASIC METABOLIC PANEL 2021-08-29 11:05:00 [facility], K, CL, CO2, Medical Branch GLUCOSE, BUN, CREATININE, CA) CBC WITH DIFF 2021-08-29 11:05:00 Maximiliano Nelson [facility] PROTHROMBIN TIME / INR 2021-08-29 11:05:00 [facility] 2021-08-29 11:05:00 Maximiliano Nelson [facility] Encounters Start End Encounter Admission Attending Care Care Encounter Source Date/Time Date/Time Type Type Clinicians Facility Department ID 2023-02-11 Outpatient [facility] [id number] [place] 09:03:27 [id number] [facility] 2023-02-05 Outpatient [facility] [id number] [place] 09:08:54 [id number] [facility] 2023-02-04 Outpatient [facility] [id number] [place] 08:24:53 [id number] [facility] 2023-02-03 Outpatient [facility] [id number] [place] 13:31:39 [id number] [facility] 2023-02-02 Outpatient [facility] [id number] [place] 10:13:03 [id number] [facility] 2023-03-12 2023-03-12 [id number] [place] 12:00:00 12:00:00 VICTOR MANUEL sierra 2023-03-05 2023-03-05 Office RAFAELA Mercado 6414 [id number] [place] 12:30:00 12:43:[address] 350.1.13.58 Health 9.2.7.2.686 [id number] 2023-03-04 2023-03-04 Outpatient [facility] [id number] Claude 08:56:47 08:56:47 [id number] [place] 2023-02-25 2023-02-25 Office RAFAELA Blake 6414 [id number] [place] 13:30:00 15:09:[address] 350.1.13.58 Health 9.2.7.2.686 [id number] 2023-02-25 2023-02-25 Outpatient [facility] [id number] [place] 13:30:00 15:09:20 Health 2023-02-16 2023-02-16 Outpatient [facility] [id number] [facility] 05:40:00 23:59:00 VICTOR MANUEL 2023-02-05 2023-02-05 Office Koki [facility] [id number] [place] 13:15:00 13:58:54 Visit Victor Manuel Maldonado [address] 350.1.13.58 Health 9.2.7.2.686 [id number] 1 2022-10-23 2022-10-23 Outpatient Licha DEJESUS [facility] [id number] Univers 00:00:00 00:00:00 AMIE steele [facility] 2022-09-22 2022-09-22 Patient Nadeem [facility] [id number] Univers 00:00:00 00:00:00 Outreach Meg HEALTH 350.1.13.10 i ty [place] [id number] [address] OFFICE BUILDING 2022-09-16 2022-09-16 Telephone Kerline [facility] [id number] Univers 00:00:00 00:00:00 David HEALTH 350.1.13.10 it y [place] [id number] [address] OFFICE BUILDING 2022-09-11 2022-09-11 [facility] [id number] Univers 09:20:00 09:40:00 Visit David [facility] 350.1.13.10 it y [place] [id number] [address] OFFICE [facility] 2022-09-11 2022-09-11 Outpatient R DAVID CHURCHILL [facility] [id number] Univers 09:20:00 09:20:00 DAVID CHURCHILL itfermin of [facility] 2022-09-11 2022-09-11 Orders Doctor CAIT [id number] Univers 00:00:00 00:00:00 Only Unassigned, CAROLYN 350.1.13.10 ity of [place] [facility] 4.2.7.2.[id number] [facility] 009 Branch 2022-08-26 2022-08-26 Nurse CAIT Julien [id number] Univers 00:00:00 00:00:00 Triage Leyla CAROLYN 350.1.13.10 it y of HOSPITAL 4.2.7.2.[id number] [facility] 019 Branch 2022-08-26 2022-08-26 Telephone Kerline [facility] [id number] Univers 00:00:00 00:00:00 David HEALTH 350.1.13.10 it y [place] [id number] [address] OFFICE BUILDING 2022-01-21 2022-01-21 Outpatient R DAVID CHURCHILL [facility] [id number] Univers 11:00:00 11:00:00 DAVID CHURCHILL ivette [facility] 2021-11-12 2021-11-12 Outpatient R DAVID CHURCHILL [facility] [id number] Univers 15:00:00 15:00:00 DAVID CHURCHILL ivette [facility] 2021-10-22 2021-10-22 Outpatient R DAVID CHURCHILL [facility] [id number] Univers 14:30:00 14:30:00 DAVID CHURCHILL ivette [facility] 2021-10-14 2021-10-14 Outpatient R CYR [facility] [id number] Univers 11:01:18 23:59:00 [facility]LY [facility] ity o f [facility] 2021-10-14 2021-10-14 [facility] Bang [facility] 1.2.840.114 [id number] Univers 11:01:18 23:59:00 Encounter [facility] 350.1.13.10 ity of [place].7.2.686 [place] [facility] [id number] [address] OFFICE BUILDING 2021-09-23 2021-09-23 Orders Doctor CAIT 1.2.840.114 [id number] Univers 00:00:00 00:00:00 Only Unassigned, CAROLYN 350.1.13.10 ity of [place] [facility] 4.2.7.2.686 Zac as [id number] [address] 2021-09-05 2021-09-05 Orders Doctor CAIT 1.2.840.114 [id number] Univers 00:00:00 00:00:00 Only Unassigned, CAROLYN 350.1.13.10 ity of [place] [facility] 4.2.7.2.686 Zac as [id number] [address] 2021-08-28 2021-08-29 Outpatient U KERLINE DAVID [facility] SNS [id number] Univers 20:51:00 14:00:00 DAVID CHURCHILL [facility] 2021-08-28 2021-08-29 [facility] MARCIA Churchill 1.2.840.114 [id number] Univers 20:51:00 14:00:00 Encounter David CAROLYN 350.1.13.10 ity of [facility] 42.7.2.686 Zac as [id number] [address] 2020-09-24 2020-09-24 Outpatient R [facility] [id number] Univers 16:00:00 16:00:00 ity of [facility] 2020-08-09 2020-08-09 Telephone [facility] 1.2.840.114 [id number] Univers 00:00:00 00:00:00 Daniella Ballesteros [employer] 350.1.13.10 it y of [address]686 Zac as MATERNAL [id number] Med ical & CHILD [address] [place] [address] 2020-07-17 2020-07-17 [facility] [id number] Univers 08:45:00 08:45:00 SHEBA brewer f [facility] 2020-07-12 2020-07-12 Telephone [facility] 1.2.840.114 [id number] Univers 00:00:00 00:00:00 Daniella Ballesteros [employer] 350.1.13.10 it y of [place] [id number] Zac as MATERNAL [id number] Med ical & CHILD [address] [place] [address] 2019-02-23 2019-02-23 Nurse Visit, [facility] [id number] Univers 14:57:22 15:24:24 Visit Casa Marshall [employer] [id number] ity of [place] [id number] Zac as MATERNAL [phone] Med ical & CHILD [address] [place] [address] 2019-02-08 2019-02-08 [facility] [id number] Univers 16:05:21 16:13:38 Visit Sheba Capone [employer] [id number] 10 ity of [place] [id number] Zac as MATERNAL [phone] Med ical & CHILD 107 [facility] 2019-02-07 2019-02-07 Office Rolando [facility] [id number] Univers 14:48:45 16:29:10 Visit Casa Hurt [employer] [id number] [facility] [id number] Zac as MATERNAL [phone] [facility] ical & CHILD 107 [facility] Results Test Description Test Time Test Comments Results Result Comments Source ABORH Confirmation (Lab Only) 2021-08-29 13:30:16 Test Item Value Reference Range Interpretation Comme nts ABO & RH (test code = 20) A Positive Pe rformed at [facility] Laboratory Services - [facility] Blood [address] [place], [place] [address]Dscf Free: [phone] No. [id number] [facility] (NA, K, CL, CO2, GLUCOSE, BUN, CREATININE, CA)2021-08-29 12:14:34 Test Item Value Reference Range Interpretation Comments NA (test code = 135 mmol/L 135-145 4112638632) K (test code = 4.3 mmol/L 3.5-5.0 5584047797) CL (test code = 108 mmol/L 98-108 5894663984) CO2 TOTAL (test code = 22 mmol/L 23-31 L 5249153749) AGAP (test code = 2-16 9761299479) BUN (test code = 12 mg/dL 7-23 0406059544) GLUCOSE (test code = 131 mg/dL 70-110 H 2670609048) CREATININE (test code = 0.70 mg/dL 0.50-1.04 3716458307) CALCIUM (test code = 8.3 mg/dL 8.6-10.6 L 3320447586) eGFR (test code = mL/min/1.73m2 8980272104) DUSTY (test code = DUSTY) Association of [...] tests). Lab Interpretation Abnormal (test code = 02565-3) [facility] and Screen - ONCE [id number] 11:55:01 Test Item Value Reference Range Interpretation Comments ABO & RH (test code A POSITIVE Performe d at [facility] = 20) Laboratory Serv [facility] Blood [facility] [place] [id number] Free: [phone] A No. [id number] IAT (test code = Negative Performed a t [facility] 1185) Laboratory Serv [facility] Blood [facility] [place] [address] s [id number] Free: [phone] A No. [id number] [facility] Worth[facility]OM[facility] TIME / [id number] 11:29:46 Test Item Value Reference Range Interpretation Comments PROTIME PATIENT (test See_Comment [Auto mated message] code = 5964-2) The system [employer] generated this result transmitted ref erence range: 10.1 - 1 2.6 Seconds. The re ference range was not u sed to interpret this result as normal/abnor mal. INR (test code = 6301-6) Nor mal INR <1.1; Warfarin Therap eutic range 2.0 to 3. 0 or 2.5 to 3.5, dep ending upon the indica tions. Lab Interpretation (test Normal code = 95663-5) [facility] THRMPLAS [id number] 11:29:46 Test Item Value Reference Range Interpretation Comments APTT Patient (test code See_Comment L [Au tomated message] = 3173-2) The system [email or web address] h generated this result transmitted ref erence range: 26 - 36 Seconds. The reference range was not used to int erpret this result as normal/abnormal . Lab Interpretation (test Abnormal code = 34913-5) [facility] WorthCBC WITH [id number] 11:22:42 Test Item Value Reference Range Interpretation Comments WBC (test code = See_Comment [Automated 4890-2) message] The sy stem which generated this [...] RDW-SD (test code = 47.0 fL 39.0-49.9 95676-1) RDW-CV (test code = 13.8 % 12.0-15.5 788-0) PLT (test code = See_Comment [Automated 777-3) message] The sy stem which generated this result transmitted reference range : 166 - 358 10*3/ ?L. The reference r mekhi was not used to interpret this result as normal/abnormal . MPV (test code = 10.8 fL 9.5-12.9 51695-1) NRBC/100 WBC (test See_Comment [Automat ed code = 2263617349) message] The system which generated this result transmitted reference range : 0.0 - 10.0 /100 WBCs. The refer ence range was not u sed to interpret th is result as normal/abnormal . NRBC x10^3 (test code <0.01 See_Comment [Auto mated = 7211558717) message] The s ystem which generated this result transmitted reference range : 10*3/?L. The reference range was not used to interpret this result as normal/abnormal . GRAN MAT (NEUT) % 89.4 % (test code = 770-8) IMM GRAN % (test code 0.50 % = 6303809031) LYMPH % (test code = 7.0 % 736-9) MONO % (test code = 3.0 % 5905-5) EOS % (test code = 0.0 % 713-8) BASO % (test code = 0.1 % 706-2) GRAN MAT x10^3(ANC) 9.90 10*3/uL 1.88-7.09 H (test code = 2453516237) IMM GRAN x10^3 (test 0.05 10*3/uL 0.00-0.06 code = 7451142058) LYMPH x10^3 (test code 0.78 10*3/uL 1.32-3.29 L = 731-0) MONO x10^3 (test code 0.33 10*3/uL 0.33-0.92 = 742-7) EOS x10^3 (test code = <0.03 0.03-0.39 L 711-2) BASO x10^3 (test code <0.03 0.01-0.07 = 704-7) Lab Interpretation Abnormal (test code = 85970-3) [facility]"
[2023-03-10 18:33] LABS: Hematocrit 38.8 % (36.0-45.0); MCV 88.3 fL (80-100); RBC Red Blood Cell Count 4.39 M/uL (3.86-4.86)
[2023-03-10 18:34] LABS: Absolute Lymphocytes (CBC) 1.6 K/uL (0.7-4.9); Lymphocytes % 30.5 % (15.3-44.8); MPV 8.3 fL (7.6-11.3); Platelets 239 thou/uL (152-406); Protime INR 1.1
--- NOTE | 2023-03-10 18:37 | RAD REPORT ---
EXAM DESCRIPTION: RAD - Chest Single View - 03/10/2023 6:13 pm CLINICAL HISTORY: swelling of feet Chest pain. COMPARISON: Chest Single View dated 01/31/2023; Chest Single View dated 08/28/2021; Chest Single View dated 04/19/2021; Chest Single View dated 03/23/2018 FINDINGS: Portable technique limits examination quality. The lungs are grossly clear. The heart is normal in size. No displaced fractures. IMPRESSION: No acute intrathoracic process suspected.
--- NOTE | 2023-03-10 18:37 | RAD REPORT ---
EXAM DESCRIPTION: RAD - Tib Fib Right - 03/10/2023 6:13 pm CLINICAL HISTORY: PAIN COMPARISON: Tib Fib Right dated 01/31/2023 FINDINGS: Lateral fibular sideplate with multiple screws noted. Medial malleolar screws also present . No hardware loosening seen. Mild soft tissue swelling is seen about the ankle.
--- NOTE | 2023-03-10 18:39 | RAD REPORT ---
EXAM DESCRIPTION: RAD - Foot Right 3 View - 03/10/2023 6:13 pm CLINICAL HISTORY: Swelling;Pain COMPARISON: No comparisons FINDINGS: Moderate soft tissue swelling is seen about the ankle. Medial malleolar screws are noted w ithout evidence loosening. Fibular sideplate also present. No soft tissue gas. No finding to indicate osteomyelitis.
--- NOTE | 2023-03-10 18:39 | RAD REPORT ---
EXAM DESCRIPTION: US - Extrem Venous W Compress Ross - 03/10/2023 6:31 pm CLINICAL HISTORY: SWELLING Bilateral leg edema and swelling. COMPARISON: Extremity Venous Uni Ltd dated 11/19/2021 TECHNIQUE: Real-time sonographic interrogation of the left and right lower extremity deep venous sys tems was performed. FINDINGS: Normal compressibility, flow augmentation, phasic flow and spontaneous flow is identified in both the left and right lower extremity deep venous systems. IMPRESSION: No sonographic evidence of left or right lower extremity deep venous thrombosis.
[2023-03-10 18:43] LABS: Potassium 3.6 mEq/L (3.5-5.1); Troponin High Sensitivity 4.2 pg/mL (<58.9)
[2023-03-10] MEDS ORDERED: CLINDAMYCIN 900MG/D5W 900 MG/50 ML IVPB IV ONE (19:30)
--- NOTE | 2023-03-10 19:43 | EDPHYS ---
Physician Documentation [facility] Name: Anne Marie Dubon Age: 48 yrs Sex: Female : 1975 Arrival Date: 03/10/2023 Time: 17:17 Bed 20 Private MD: ED Physician Yon Cuenca HPI: 03/10 17:45 This 48 yrs old Female presents to ER via Wheelchair with complaints of Feet Swelling. cp 17:45 Patient is a 48-year-old female who presents to the emergency department with concern cp for swelling of her right lower leg and foot. Patient reports having right ankle hardware removed on February 16, [address] Weston Telles at [facility]. Patient reports she has noticed some redness in her foot and lower leg and so she has been taking prescribed Bactrim but after calling the office today with concern for swelling she was told to come to [place] for evaluation but due to transportation issues she came to our facility for evaluation and concern for DVT. Historical: - Allergies: 17:31 Codeine; cm10 17:31 Hydrocodone-Acetaminophen; cm10 17:31 PENICILLINS; cm10 - PMHx: 17:31 Ovarian cysts; cm10 - PSHx: 17:31 Cholecystectomy; tubal ; cm10 - Immunization history:: Adult Immunizations unknown. - Social history:: Smoking status: Patient reports the use of cigarette tobacco products, smokes one-half pack cigarettes per day. ROS: 17:50 Constitutional: Positive for chills, Negative for fever, poor PO intake. cp 17:50 Cardiovascular: Negative for chest pain, palpitations. 17:50 Respiratory: Negative for cough, shortness of breath, wheezing. 17:50 Abdomen/GI: Negative for abdominal pain, nausea, vomiting, and diarrhea. 17:50 MS/extremity: Positive for erythema, paresthesias, swelling, tenderness, warmth, of the cp right lower leg and right ankle and right foot. 17:50 Eyes: Negative for injury, pain, redness, and discharge. cp 17:50 Back: Negative for pain at rest, pain with movement. 17:50 Neuro: Negative for altered mental status, dizziness, headache, weakness. 17:50 All other systems are negative. Exam: 17:55 Constitutional: The patient appears in no acute distress, alert, awake, non-toxic, well cp developed, well nourished, overweight 17:55 Head/Face: Normocephalic, atraumatic. cp 17:55 Eyes: Periorbital structures: appear normal, Conjunctiva: normal, no exudate, no injection, Sclera: no appreciated abnormality, Lids and lashes: appear normal, bilaterally. 17:55 ENT: External ear(s): are unremarkable, Nose: is normal, Mouth: Lips: moist, Oral mucosa: moist. 17:55 Chest/axilla: Inspection: normal. 17:55 Cardiovascular: Rate: normal, Rhythm: regular. 17:55 Respiratory: the patient does not display signs of respiratory distress, Respirations: normal, no use of accessory muscles, Breath sounds: are clear throughout, no decreased breath sounds, no stridor, no wheezing. 17:55 Abdomen/GI: Inspection: abdomen appears normal, Palpation: abdomen is soft and non-tender. 17:55 Musculoskeletal/extremity: Extremities: noted in the right lower leg and right foot: erythema, swelling, sutures in place with no dehiscence, no drainage noted. 18:11 ECG was reviewed by the Attending Physician. Vital Signs: 17:29 BP 128 / 64; Pulse 72; Resp 16; Temp 97.7; Pulse Ox 98% ; Weight 92.99 kg; Height 5 ft. cm10 5 in. ; Pain 10/10; 18:58 BP 130 / 73; Pulse 57; Resp 17 S; Pulse Ox 97% on R/A; kc6 20:32 BP 127 / 78; Pulse 57; Resp 16; Pulse Ox 98% ; bp 17:29 Body Mass Index 34.11 (92.99 kg, 165.1 cm) cm10 17:29 Pain Scale: Adult cm10 MDM: 17:32 Patient medically screened. 19:52 Data reviewed: vital signs, nurses notes, lab test result(s), EKG, radiologic studies, cp plain films, ultrasound. 19:52 Differential diagnosis: osteomyelitis, sepsis, cellulitis, DVT. Consideration of cp Admission/Observation Escalation of care including admission/observation considered. I considered the following discharge prescriptions or medication management in the emergency department Medications were administered in the Emergency Department. See MAR. Counseling: I had a detailed discussion with the patient and/or guardian regarding the historical points, exam findings, and any diagnostic results supporting the discharge/admit diagnosis, lab results, radiology results, the need for outpatient follow up, a orthopedic surgeon, to return to the emergency department if symptoms worsen or persist or if there are any questions or concerns that arise at home. Response to treatment: the patient's symptoms have mildly improved after treatment, and as a result, I will discharge patient. 03/10 17:40 Order name: Basic Metabolic Panel; Complete Time: 19:05 03/10 19:05 Interpretation: Normal except: NA 135; CRE 1.10; GFR 63. 03/10 17:40 Order name: CBC with Diff; Complete Time: 19:05 03/10 17:40 Order name: NT PRO-BNP; Complete Time: 19:05 03/10 17:40 Order name: PT-INR; Complete Time: 19:05 03/10 17:40 Order name: Troponin HS; Complete Time: 19:05 03/10 17:40 Order name: Lactate w/ 2H reflex if indic.; Complete Time: 19:05 03/10 17:40 Order name: US Extremity Venous W Compression Ross; Complete Time: 19:05 03/10 17:40 Order name: XRAY Chest (1 view); Complete Time: 19:05 03/10 17:41 Order name: XRAY Foot RIGHT 3 View; Complete Time: 19:05 03/10 17:41 Order name: XRAY Tib Fib RIGHT; Complete Time: 19:05 03/10 19:06 Interpretation: Report reviewed. 03/10 19:15 Order name: US Lower Extremity Artery Uni Ltd 03/10 17:40 Order name: EKG; Complete Time: 17:40 03/10 17:40 Order name: Cardiac monitoring; Complete Time: 18:14 03/10 17:40 Order name: EKG - Nurse/Tech; Complete Time: 18:14 03/10 17:40 Order name: IV Saline Lock; Complete Time: 18:14 03/10 17:40 Order name: Labs collected and sent; Complete Time: 18:14 03/10 17:40 Order name: O2 Per Protocol; Complete Time: 18:14 03/10 17:40 Order name: O2 Sat Monitoring; Complete Time: 18:14 cp EC:11 Rate is 59 beats/min. Rhythm is regular. NJ interval is normal. QRS interval is normal. cp QT interval is normal. Interpreted by me. Reviewed by me. Administered Medications: 19:29 Drug: Clindamycin IVPB 900 mg Route: IVPB; Infused Over: 30 mins; Site: left bp antecubital; 20:05 Follow up: Response: No adverse reaction; IV Status: Completed infusion; IV Intake: eh3 100ml 19:45 Drug: fentaNYL (PF) IVP 25 mcg Route: IVP; Site: left antecubital; bp 20:33 Follow up: Response: No adverse reaction bp Disposition Summary: 03/10/23 19:53 Discharge Ordered Location: Home(03/10/23 19:53) cp Problem: new(03/10/23 19:53) cp Symptoms: have improved(03/10/23 19:53) cp Condition: Stable(03/10/23 19:53) cp Diagnosis - Cellulitis of right lower limb(03/10/23 19:53) cp Followup: cp - With: Private Physician - When: 1 - 2 days - Reason: Recheck today's complaints Discharge Instructions: - Discharge Summary Sheet cp - Cellulitis, Adult cp Forms: - Medication Reconciliation Form cp - Thank You Letter cp - Antibiotic Education cp - Prescription Opioid Use cp - Patient Portal Instructions cp - Leadership Thank You Letter cp Prescriptions: - Clindamycin HCl 300 mg Oral Capsule - take 1 capsule by ORAL route every 6 hours for 10 days; 40 capsule; Refills: 0, cp Product Selection Permitted - Ibuprofen 800 mg Oral Tablet - take 1 tablet by ORAL route every 8 hours As needed take with food; 30 tablet; cp Refills: 0, Product Selection Permitted Signatures: Dispatcher [employer] EDWV Familia Murray PA PA cp Rito Cazares RN RN Sole Retana RN RN cm10 Sherin De La Fuente RN eh3 Corrections: (The following items were deleted from the chart) 18:49 03/09 17:50 Constitutional: Positive for chills, Negative for fever, poor PO intake, cp cp 03/10 18:49 03/09 17:50 Cardiovascular: Negative for chest pain, palpitations, cp cp 03/10 18:49 03/09 17:50 Respiratory: Negative for cough, shortness of breath, wheezing, cp cp 03/10 18:49 03/09 17:50 Abdomen/GI: Negative for abdominal pain, nausea, vomiting, and diarrhea, cp cp 03/10 19:43 19:42 Home cp cp 19:43 19:42 new cp cp :43 19:42 have improved cp cp : 19:42 Stable cp cp : 19:42 Cellulitis of right lower limb cp cp
--- NOTE | 2023-03-10 19:43 | ER ---
Nurse's Notes [facility] Name: Anne Marie Dubon Age: 48 yrs Sex: Female : 1975 Arrival Date: 03/10/2023 Time: 17:17 Bed 20 Private MD: Diagnosis: Cellulitis of right lower limb Presentation: 03/10 17:29 Chief complaint: Patient states: right ankle surgery on Feb 16 for fractur. Pt states cm10 that 2 weeks ago she was seen by her doctor and placed on bactrim due to having redness and pt states that the redness has not improved and she has swelling to her right foot. Coronavirus screen: Vaccine status: Client denies travel out of the [place] in the last 14 days. Ebola Screen: Patient denies travel to an Ebola-affected area in the 21 days before illness onset. No symptoms or risks identified at this time. Initial Sepsis Screen: Does the patient meet any 2 criteria? No. Patient's initial sepsis screen is negative. Does the patient have a suspected source of infection? Yes: Skin breakdown/wound Bone or joint infection. Risk Assessment: Do you want to hurt yourself or someone else? Patient reports no desire to harm self or others. Onset of symptoms was March 10, 2023. 17:29 Method Of Arrival: Wheelchair cm10 17:29 Acuity: JULIA 3 cm10 Historical: - Allergies: 17:31 Codeine; cm10 17:31 Hydrocodone-Acetaminophen; cm10 17:31 PENICILLINS; cm10 - PMHx: 17:31 Ovarian cysts; cm10 - PSHx: 17:31 Cholecystectomy; tubal ; cm10 - Immunization history:: Adult Immunizations unknown. - Social history:: Smoking status: Patient reports the use of cigarette tobacco products, smokes one-half pack cigarettes per day. Screenin:19 [facility] ED Fall Risk Assessment (Adult) History of falling in the last 3 months, kc6 including since admission No falls in past 3 months (0 pts) Confusion or Disorientation No (0 pts) Intoxicated or Sedated No (0 pts) Impaired Gait Yes (1 pt) Mobility Assist Device Used Yes (1 pt) Altered Elimination No (0 pt) Score/Fall Risk Level 0 - 2 = Low Risk. Abuse screen: Denies threats or abuse. Denies injuries from another. Nutritional screening: No deficits noted. Tuberculosis screening: No symptoms or risk factors identified. Assessment: 18:19 General: Appears in no apparent distress. comfortable, Behavior is calm, cooperative, kc6 appropriate for age. Pain: Complains of pain in right foot and right leg. Neuro: Level of Consciousness is awake, alert, obeys commands, Oriented to person, place, time, situation, Appropriate for age. Cardiovascular: Capillary refill < 3 seconds. Respiratory: Airway is patent Trachea midline Respiratory effort is even, unlabored, Respiratory pattern is regular, symmetrical. GI: No signs and/or symptoms were reported involving the gastrointestinal system. : No signs and/or symptoms were reported regarding the genitourinary system. EENT: No signs and/or symptoms were reported regarding the EENT system. Derm: No signs and/or symptoms reported regarding the dermatologic system. Skin is intact, is healthy with good turgor, Skin is pink, warm \T\ dry. Musculoskeletal: No signs and/or symptoms reported regarding the musculoskeletal system. Circulation, motion, and sensation intact. Capillary refill < 3 seconds, Range of motion: intact in all extremities. 19:10 Reassessment: RECD REPORT FROM AMALIA SPENCER. 48YO WF P/W RLE PAIN/EDEMA S/P ANKLE SX. bp 19:43 Reassessment: DC ON HOLD FOR ARTERIOGRAM RESULT. U/S AT B/S. bp 20:32 Reassessment: DC HOME VIA WC WITH FAMILY. bp Vital Signs: 17:29 BP 128 / 64; Pulse 72; Resp 16; Temp 97.7; Pulse Ox 98% ; Weight 92.99 kg; Height 5 ft. cm10 5 in. ; Pain 10/10; 18:58 BP 130 / 73; Pulse 57; Resp 17 S; Pulse Ox 97% on R/A; kc6 20:32 BP 127 / 78; Pulse 57; Resp 16; Pulse Ox 98% ; bp 17:29 Body Mass Index 34.11 (92.99 kg, 165.1 cm) cm10 17:29 Pain Scale: Adult cm10 ED Course: 17:19 Patient arrived in ED. rg4 17:21 Familia Murray PA is PHCP. cp 17:21 Yon Cuenca MD is Attending Physician. cp 17:31 Triage completed. cm10 17:32 Arm band placed on Patient placed in waiting room. cm10 18:14 Georgina Mandujano, JOHANNA is Primary Nurse. kc6 18:14 Inserted saline lock: 20 gauge in right antecubital area, using aseptic technique. kc6 Blood collected. 18:15 XRAY Chest (1 view) In Process Unspecified. EDMS 18:15 XRAY Foot RIGHT 3 View In Process Unspecified. EDMS 18:15 XRAY Tib Fib RIGHT In Process Unspecified. EDMS 18:19 Patient has correct armband on for positive identification. Bed in low position. Call kc6 light in reach. Side rails up X2. 18:33 US Extremity Venous W Compression Ross In Process Unspecified. EDMS 18:51 IV discontinued, intact, bleeding controlled, No redness/swelling at site. Pressure kc6 dressing applied. Inserted saline lock: 20 gauge in left antecubital area, using aseptic technique. 19:05 Report given to Rito Cazares RN. kc6 19:07 Primary Nurse role handed off by Georgina Mandujano RN bp 19:07 Rito Cazares, RN is Primary Nurse. bp 20:07 US Lower Extremity Artery Uni Ltd In Process Unspecified. EDMS 20:33 No provider procedures requiring assistance completed. bp Administered Medications: 19:29 Drug: Clindamycin IVPB 900 mg Route: IVPB; Infused Over: 30 mins; Site: left bp antecubital; 20:05 Follow up: Response: No adverse reaction; IV Status: Completed infusion; IV Intake: eh3 100ml 19:45 Drug: fentaNYL (PF) IVP 25 mcg Route: IVP; Site: left antecubital; bp 20:33 Follow up: Response: No adverse reaction bp Intake: 20:05 IV: 100ml; Total: 100ml. eh3 Outcome: 19:42 Discharge ordered by MD. cp 19:53 Discharge ordered by MD. cp 20:33 Discharged to home via wheelchair, with family. bp 20:33 Condition: stable 20:33 Discharge instructions given to patient, family, Instructed on discharge instructions, follow up and referral plans. medication usage, Demonstrated understanding of instructions, follow-up care, medications, Prescriptions given X 2. 20:33 Patient left the ED. bp Signatures: Dispatcher [employer] EDMS Faimlia Murray PA PA cp Garcia, Rubi rg4 Rito Cazares, RN RN bp Sherin De La Fuente, RN RN eh3 Georgina Mandujano, RN RN kc6 Sole Sumner, RN RN cm10
[2023-03-10] MEDS ORDERED: FENTANYL CITR 100 MCG/2 ML ONE (19:45)
--- NOTE | 2023-03-10 20:23 | RAD REPORT ---
EXAM DESCRIPTION: US - Lower Extremity Artery Uni Ltd - 03/10/2023 8:05 pm CLINICAL HISTORY: Pain;Swelling COMPARISON: <Comparisons> FINDINGS: Right lower extremity arterial system was interrogated. The right common femoral artery is triphasic. The right superficial and popliteal arteries are triphasic. The right posterior tibial artery and dorsalis pedis artery are monophasic. No complete occlusion evident. IMPRESSION: Moderate infrapopliteal flow diminishment as detailed.
[2023-03-10 21:13] VITALS: TEMP 97.7
[2023-03-10 21:15] VITALS: BP 127/78; O2SAT 98
--- NOTE | 2023-03-11 13:05 | EKG ---
Test Date: 2023-03-10 Test Time: 18:05:28 Records Analyst: STEPHANIE MEASUREMENT RESULTS: Intervals: Rate: 59 MT: 146 QRSD: 82 QT: 428 QTc: 423 [place]: P: 62 MT: 146 QRS: 31 T: 41 INTERPRETIVE STATEMENTS: Sinus bradycardia Otherwise normal ECG Compared to ECG 01/31/2023 04:22:14 Sinus rhythm no longer present Electronically Signed On 03-11-23 13:03:33 CDT by Jay Bill
== END 2023-03-10 20:33 | disposition home or self-care (01) ==
LOC: ER 17:17
DX: L03.115 Cellulitis of right lower limb (principal); F17.210 Nicotine dependence, cigarettes, uncomplicated; Z88.0 Allergy status to penicillin; Z88.5 Allergy status to narcotic agent
CPT/HCPCS: 96365; 93005; 85025; 80048; 36415; 85610; 83605; 84484; 83880; 71045; 73630; 73590; 93926; 93970; 96375; 99284; J3010

== ENCOUNTER 2023-05-01 15:30 | Emergency (ER) | payer OTHER ==
--- OUTSIDE RECORDS SUMMARY | 2023-05-01 15:35 | XMS REPORT | Continuity of Care Document ---
:1975 Author Organization [facility] t Address [address] [place] [address]. [address] [place] [address] Care Team Providers Name Role Phone Aime Rolle Rk Primary Care Physician VICTOR MANUEL TELLES Attending Clinician Unavailable Ernie Irby Attending Clinician Messi Miner Attending Clinician VICTOR MANUEL TELLES Attending Clinician Unavailable AMIE DEJESUS Attending Clinician Unavailable Meg Silver LCSW Attending Clinician David Churchill MD Attending Clinician DAVID CHURCHILL Attending Clinician Unavailable Doctor Unassigned, [place] Attending Clinician Unavailable Leyla Julien RN Attending Clinician Unavailable ANGELITA CYR Attending Clinician Unavailable Bang Mcdonnell MD, Chilvana Attending Clinician Daniella Joe Attending Clinician SHEBA CAPONE Attending Clinician Unavailable [facility] Attending Clinician Unavailable Casa Anderson Attending Clinician Sheba Chavez Attending Clinician [phone] DAVID CHURCHILL Admitting Clinician Unavailable Payers Payer Name Policy Type Policy Number Effective Date Expiration Date S cedrick GENERIC OTHER [id number] 2022 2022 00:00:00 00:00:00 JUDY JORGENSEN - [id number] 2022 [employer] 00:00:00 [facility] [id number] HEALTHCARE Problems Condition Condition Condition Status Onset [...] f cyst cyst 00:00: g of this [place] 00 note Medical might be Branch different from the original. 1.8 x 1.8 x 2.1 cm right ovarian hemorrhag ic cyst on 12/14/18 pelvic US Intramural Intramural Disease Active Overview : Univers leiomyoma leiomyoma - Formatt[place] i ty of of uterus of [...] uterus uterus 12-08 ity of 00:00: [place] [facility] S/P tubal S/P tubal Disease [...] 12-08 ity of 00:00: [place] [facility] PENICILL DRUG Active Med Hives Univers IN INGREDI 12-08 ity of 00:00: Medical Branch Penicill Drug Active Hives Univers in Allergy 12-08 ity of 00:00: [place] [facility] Penicill Allergy Active Rash 2017-07 [facility] ins to 0-30 Health substanc 00:00: e 00 Amoxicil Propensi Active Hives Univer s alverto ty to 1-23 ity of adverse 00:00: [place] reaction 00 Medical s Branch AMOXICIL DRUG Active Hives 2017 Univers ALVERTO INGREDI -23 ity of 00:00: [place] 00 Medical Branch [...] 1998-12-08 Cigarette Smoker University of use 00:00:00 [facility] Sexual orientation Univer sity of [facility] History [place] University o f Alcohol Frequency [facility] edical Branch History [facility] University o f Alcohol Std Drinks [place] [facility] History On license of [facility] o f Alcohol Binge [facility] al Branch Exposure to 2022-09-01 2022-09-11 Not sure University of SARS-CoV-2 (event) 00:00:00 09:01:00 [facility] Alcohol intake 2021-08-28 2021-08-28 Current drinker Unive rsity of 00:00:00 00:00:00 of alcohol [facility] (finding) Branch History of Social 2020-02-15 2020-02-15 Univers ity of function 00:00:00 00:00:00 [facility] Cigarettes smoked 2018-12-08 2018-12-08 Univers ity of current (pack per 00:00:00 00:00:00 [facility] ) - Reported Branch Alcohol Comment 2018-12-08 2018-12-08 ocassional Universit y of 00:00:00 00:00:00 [facility] Tobacco use and 2018-12-08 2018-12-08 Smokeless tobacco Un iversity of exposure 00:00:00 00:00:00 non-user [facility] Sex [facility] [birth year] [facility] 00[facility] Smoking Status Start Date Stop Date Source [facility] Smokes tobacco daily 2018-12-08 00:00:00 Univers ity of [facility] Medications Ordered Filled Start Stop Current Ordering Indication Dosage Frequency Signature Comments Components Source Medication Medication Date Date Medication? Clinician (SIG) Name Name methocarbam 2022-07- Yes [id number] 500mg Take 1 UT ol 0-12 11-02 tablet Health (Robaxin) 00:00: 04:59 (500 mg 500 MG 00 :00 total) by tablet mouth 1 (one) time each day if needed for muscle spasms for up to 20 days. methocarbam 2022-07- Yes [id number] 500mg Q.25D Take 1 UT ol 0-12 10-23 tablet Health (Robaxin) 00:00: 04:59 (500 mg 500 MG 00 :00 total) by tablet mouth in the morning and 1 tablet (500 mg total) at noon and 1 tablet (500 mg total) in the evening and 1 tablet (500 mg total) before bedtime. Do all this for 10 days. gabapentin 0 Yes [id number] 300mg Q.[id number] Take 1 UT (Neurontin) - [id number] capsule Health 300 MG 00:00: 3D (300 mg capsule 00 total) by mouth in the morning and 1 capsule (300 mg total) at noon and 1 capsule (300 mg total) in the evening. gabapentin 2022- Yes [id number] 300mg Q.[id number] Take 1 UT (Neurontin) 9 10- [id number] capsule Health 300 MG 00:00: 04:59 3D (300 mg capsule 00 :00 total) by mouth in the morning and 1 capsule (300 mg total) at noon and 1 capsule (300 mg total) in the evening. methocarbam 0 Yes [id number] 500mg Take 1 UT ol 8-25 tablet Health (Robaxin) 00:00: (500 mg 500 MG 00 total) by tablet mouth 1 (one) time each day if needed for muscle spasms for up to 20 days. methocarbam 0 Yes [id number] 500mg Take 1 UT ol 8-25 tablet Health (Robaxin) 00:00: (500 mg 500 MG 00 total) by tablet mouth 1 (one) time each day if needed for muscle spasms for up to 20 days. methocarbam 0 2022- Yes [id number] 500mg Take 1 UT ol 8-25 09-15 tablet Health (Robaxin) 00:00: 04:59 (500 mg 500 MG 00 :00 total) by tablet mouth 1 (one) time each day if needed for muscle spasms for up to 20 days. sulfamethox 2022-0 2022- Yes [id number] 1{tbl} Q.5D Take 1 UT azole-trime 03-05- tablet by He alth thoprim 00:00: 04:59 mouth in (Bactrim 00 :00 the DS) 800-160 morning MG tablet and 1 tablet in the evening. Do all this for 7 days. sulfamethox 0 2022- Yes [id number] 1{tbl} Q.5D Take 1 UT azole-trime 03-05 tablet by He alth thoprim 00:00: 04:59 mouth in (Bactrim 00 :00 the DS) 800-160 morning MG tablet and 1 tablet in the evening. Do all this for 7 days. traMADol 2022-0 Yes [id number] 50mg Q6H Take 1 UT (Ultram) 50 8-16 tablet (50 He alth MG tablet 00:00: mg total) 00 by mouth every 6 (six) hours if needed for severe pain. methocarbam 2022-0 Yes [id number] 500mg Take 1 UT ol 8-16 tablet Health (Robaxin) 00:00: (500 mg 500 MG 00 total) by tablet mouth every 8 (eight) hours if needed for muscle spasms for up to 10 days. traMADol 2022-0 Yes [id number] 50mg Q6H Take 1 UT (Ultram) 50 8-16 tablet (50 He alth MG tablet 00:00: mg total) 00 by mouth every 6 (six) hours if needed for severe pain. methocarbam 2022-0 Yes [id number] 500mg Take 1 UT ol 8-16 tablet Health (Robaxin) 00:00: (500 mg 500 MG 00 total) by tablet mouth every 8 (eight) hours if needed for muscle spasms for up to 10 days. methocarbam 2022-0 Yes [id number] 500mg Take 1 UT ol 8-16 tablet Health (Robaxin) 00:00: (500 mg 500 MG 00 total) by tablet mouth every 8 (eight) hours if needed for muscle spasms for up to 10 days. methocarbam 2022-0 2022- Yes [id number] 500mg Take 1 UT ol 8-16 08-27 tablet Health (Robaxin) 00:00: 04:59 (500 mg 500 MG 00 :00 total) by tablet mouth every 8 (eight) hours if needed for muscle spasms for up to 10 days. sulfamethox 2022- Yes [id number] 1{tbl} Q.5D Take 1 UT azole-trime 02-25 tablet by He alth thoprim 00:00: 04:59 mouth in (Bactrim 00 :00 the DS) 800-160 morning MG tablet and 1 tablet in the evening. Do all this for 7 days. oxyCODONE 2022- No [id number] 5mg Q6H Take 1 U T (Roxicodone 02-21 tablet (5 He alth ) 5 MG 00:00: 04:59 mg total) immediate 00 :00 by mouth release every 6 tablet (six) hours if needed for severe pain for up to 6 days. gabapentin 2022- Yes [id number] 300mg Q.[id number] Take 1 UT (Neurontin) 02-16 [id number] capsule Health 300 MG 00:00: 04:59 3D (300 mg capsule 00 :00 total) by mouth in the morning and 1 capsule (300 mg total) at noon and 1 capsule (300 mg total) in the evening. gabapentin 2022- Yes [id number] 300mg Q.[id number] Take 1 UT (Neurontin) 02-16 [id number] capsule Health 300 MG 00:00: 04:59 3D (300 mg capsule 00 :00 total) by mouth in the morning and 1 capsule (300 mg total) at noon and 1 capsule (300 mg total) in the evening. gabapentin 2022- Yes [id number] 300mg Q.[id number] Take 1 UT (Neurontin) 02-16 [id number] capsule Health 300 MG 00:00: 04:59 3D (300 mg capsule 00 :00 total) by mouth in the morning and 1 capsule (300 mg total) at noon and 1 capsule (300 mg total) in the evening. methocarbam 2022- No [id number] 500mg Take 1 UT ol 02-16 tablet Health (Robaxin) 00:00: 00:00 (500 mg 500 MG 00 :00 total) by tablet mouth 1 (one) time each day if needed for muscle spasms for up to 20 days. methocarbam 2023-0 Yes [id number] 500mg Q.25D Take 1 UT ol 7-27 tablet Health (Robaxin) 00:00: (500 mg 500 MG 00 total) by tablet mouth in the morning and 1 tablet (500 mg total) at noon and 1 tablet (500 mg total) in the evening and 1 tablet (500 mg total) before bedtime. Do all this for 10 days. methocarbam 2023-0 Yes [id number] 500mg Q.25D Take 1 UT ol 7-27 tablet Health (Robaxin) 00:00: (500 mg 500 MG 00 total) by tablet mouth in the morning and 1 tablet (500 mg total) at noon and 1 tablet (500 mg total) in the evening and 1 tablet (500 mg total) before bedtime. Do all this for 10 days. methocarbam 2023-0 Yes [id number] 500mg Q.25D Take 1 UT ol 7-27 tablet Health (Robaxin) 00:00: (500 mg 500 MG 00 total) by tablet mouth in the morning and 1 tablet (500 mg total) at noon and 1 tablet (500 mg total) in the evening and 1 tablet (500 mg total) before bedtime. Do all this for 10 days. methocarbam 2023-0 Yes [id number] 500mg Q.25D Take 1 UT ol 7-27 tablet Health (Robaxin) 00:00: (500 mg 500 MG 00 total) by tablet mouth in the morning and 1 tablet (500 mg total) at noon and 1 tablet (500 mg total) in the evening and 1 tablet (500 mg total) before bedtime. Do all this for 10 days. methocarbam 2023-0 2023- No [id number] 500mg Q.25D Take 1 UT ol 7-27 10-12 tablet Health (Robaxin) 00:00: 00:00 (500 mg 500 MG 00 :00 total) by tablet mouth in the morning and 1 tablet (500 mg total) at noon and 1 tablet (500 mg total) in the evening and 1 tablet (500 mg total) before bedtime. Do all this for 10 days. gabapentin 2023-0 Yes [id number] 300mg Take 1 Univers 300 mg 3-07 capsule by ity of capsule 00:00: mouth 3 [place] 00 (three) Medical times [place] daily as needed for Pain (scale 7-10). gabapentin 0 Yes [id number] 300mg Take 1 Univers 300 mg 3-07 capsule by ity of capsule 00:00: mouth 3 [place] (three) Medical times [place] daily as needed for Pain (scale 7-10). FENTanyl PF 2021-0 2021- No 25ug 25 mcg, Un jose (SUBLIMAZE 08-29- Slow IV ity o f (PF)) 17:30: 16:24 Push, [place] injection 00 :00 ONCE, 1 Medical 25 mcg dose, On Branch [facility] 08/29/21 at 1130, Routine famotidine 2021-0 Yes 20mg 20 mg, Unive rs (PEPCID AC) 2-17 Oral, BID, it y of tablet 20 14:00: First dose [place] mg 00 on [facility] 08/29/21 at Branch 0800, Until Discontinu ed, Routine docusate Yes 100mg 100 mg, Unive rs (COLACE) 2-17 Oral, BID, ity o f capsule 100 14:00: First dose [place] mg 00 on [facility] 08/29/21 at Branch 0800, Until Discontinu ed, Routine gabapentin Yes 300mg 300 mg, Uni vers (NEURONTIN) -17 Oral, TID, it y of capsule 300 14:00: First dose [place] mg 00 on [facility] 08/29/21 at Branch 0800, Until Discontinu ed, Routine traMADoL 0 Yes 50mg 50 mg, Univers (ULTRAM) 17 Oral, ity of tablet 50 03:35: Q6HPRN, [place] mg 17 Starting Medical on Thu [place] 08/28/21 at 2135, Until Discontinu ed, Routine, Pain (scale 4-6) acetaminoph 2021-0 Yes 325mg 325 mg, Un jose en -17 Oral, ity of (TYLENOL) 03:35: Q6HPRN, [place] tablet 325 11 Starting Medic al mg on Thu [place] 08/28/21 at 2135, Until Discontinu ed, Routine, Pain (scale 1-3) bisacodyL 0 Yes 10mg 10 mg, Univer s (DULCOLAX) 2-17 Rectal, ity of suppository 03:32: QHSPRN, [place] 10 mg 01 Starting Medical on Thu Branch 08/28/21 at 2132, Until Discontinu ed, Routine, Constipati on NaCl 0.9% 2021-0 Yes 5mL 5 mL, Slow Un jose (NS) 2-17 IV Push, ity of injection 5 03:32: PRN - SEE [place] mL 01 INSTRUCTIO Medical NS, Branch Starting on Thu08/28/21 at 2132, Until Discontinu ed, 10 mL methylPREDN 2021-0 Yes [id number] Take by [facility] ISolone 4 2-17 mouth ity of mg tablets 00:00: SEE-INSTRU [place] 00 CTIONS. Medical follow Branch package directions methylPREDN 2021-0 Yes [id number] Take by Univers ISolone 4 2-17 mouth ity of mg tablets 00:00: SEE-INSTRU [place] 00 CTIONS. Medical follow Branch package directions methylPREDN 2021-0 Yes [id number] Take by Univers ISolone 4 2-17 mouth ity of mg tablets 00:00: SEE-INSTRU [place] 00 CTIONS. Medical follow Branch package directions methylPREDN 2-0 Yes [id number] Take by Univers ISolone 4 2-17 mouth ity of mg tablets 00:00: SEE-INSTRU [place] 00 CTIONS. Medical follow Branch package directions methylPREDN 2-0 Yes [id number] Take by Univers ISolone 4 2-17 mouth ity of mg tablets 00:00: SEE-INSTRU [place] 00 CTIONS. Medical follow Branch package directions methylPREDN 2-0 Yes [id number] Take by Univers ISolone 4 2-17 mouth ity of mg tablets 00:00: SEE-INSTRU [place] 00 CTIONS. Medical follow Branch package directions methylPREDN 2022-0 Yes [id number] Take by Univers ISolone 4 2-17 mouth ity of mg tablets 00:00: SEE-INSTRU [place] 00 CTIONS. Medical follow Branch package directions methylPREDN 2022-0 Yes [id number] Take by Univers ISolone 4 2-17 mouth ity of mg tablets 00:00: SEE-INSTRU [place] 00 CTIONS. Medical follow Branch package directions methylPREDN 2022-0 Yes [id number] Take by Univers ISolone 4 2-17 mouth ity of mg tablets 00:00: SEE-INSTRU [place] 00 CTIONS. Medical follow Branch package directions methylPREDN 2021-0 Yes [id number] Take by Univers ISolone 4 2-17 mouth ity of mg tablets 00:00: SEE-INSTRU [place] 00 CTIONS. Medical follow Branch package directions methylPREDN 2021-0 Yes [id number] Take by Univers ISolone 4 2-17 mouth ity of mg tablets 00:00: SEE-INSTRU [place] 00 CTIONS. Medical follow Branch package directions methylPREDN 2021-0 Yes [id number] Take by Univers ISolone 4 2-17 mouth ity of mg tablets 00:00: SEE-INSTRU [place] 00 CTIONS. Medical follow Branch package directions methylPREDN 2021-0 Yes [id number] Take by Univers ISolone 4 2-17 mouth ity of mg tablets 00:00: SEE-INSTRU [place] 00 CTIONS. Medical follow Branch package directions gabapentin 2021- No [id number] 300mg Take 1 Univers 300 mg 2-17 03-20 capsule by ity of capsule 00:00: 04:59 mouth 3 [place] 00 :00 (three) Medical times Branch daily for 30 days. gabapentin 2021- No [id number] 300mg Take 1 Univers 300 mg 2-17 03-20 capsule by ity of capsule 00:00: 04:59 mouth 3 [place] 00 :00 (three) Medical times Branch daily for 30 days. gabapentin 2021- No [id number] 300mg Take 1 Univers 300 mg 2-17 03-20 capsule by ity of capsule 00:00: 04:59 mouth 3 [place] 00 :00 (three) Medical times Branch daily for 30 days. LOESTRIN 2019- No [id number] 1{tbl} Take 1 Univers (MICROGESTI -07 02-29 tablet by it y of N 08/01) 00:00: 00:00 mouth [place] 1 mg-20 mcg 00 :00 daily. Medica l (21)/75 mg Branch (7) tablet LOESTRIN 2019- No [id number] 1{tbl} Take 1 Univers (MICROGESTI 5-29 07-29 tablet by it y of N FE 08/01) 00:00: 00:00 mouth [place] 1 mg-20 mcg 00 :00 daily. Medica l (21)/75 mg Branch (7) tablet LOESTRIN 2019- No [id number] 1{tbl} Take 1 Univers (MICROGESTI 5-29 07-29 tablet by it y of N FE 08/01) 00:00: 00:00 mouth [place] 1 mg-20 mcg 00 :00 daily. Medica l (21)/75 mg Branch (7) tablet LOESTRIN 2019- No [id number] 1{tbl} Take 1 Univers (MICROGESTI 5-29 -29 tablet by it y of N FE 08/01) 00:00: 00:00 mouth [place] 1 mg-20 mcg 00 :00 daily. Medica l (21)/75 mg Branch (7) tablet No known No Univers medications [facility] No known No Univers medications [facility] No known No Univers medications [facility] No known No Univers medications [facility] Vital Signs Vital Name Observation Time Observation Value Comments Source Body height 2022-09-11 15:15:00 165.1 cm [facility] Body weight 2022-09-11 15:15:00 92.987 kg [facility] BMI 2022-09-11 15:15:00 34.11 kg/m2 [facility] Systolic blood 2021-08-29 18:00:00 107 mm[Hg] Univer sity [facility] Diastolic blood 2021-08-29 18:00:00 58 mm[facility]Hg] [facility] 2021-08-29 18:00:00 61 /min [facility] Body temperature 2021-08-29 18:00:00 36.44 Rika [facility] Respiratory rate 2021-08-29 18:00:00 20 /min [facility] Oxygen saturation in 2021-08-29 18:00:00 100 /min [facility] Arterial blood by [facility] Pulse oximetry Branch Body height 2021-08-29 03:37:00 165.1 cm [facility] Body weight 2021-08-29 01:00:00 86.183 kg [facility] [place] [facility] BMI 2021-08-29 01:00:00 31.62 kg/m2 [facility] [place] [facility] Systolic blood 2019-02-23 20:12:00 129 mm[Hg] Univer sity of pressure [place] [facility] Diastolic blood 2019-02-23 20:12:00 74 mm[Hg] Unive rsity of pressure [place] [facility] Heart rate 2019-02-23 20:12:00 57 /min [facility] [place] [facility] Body temperature 2019-02-23 20:12:00 36.11 Rika Univ ersity [facility] [place] [facility] Respiratory rate 2019-02-23 20:12:00 16 /min Univ ersity [facility] [place] [facility] Body height 2019-02-23 20:12:00 165.1 cm [facility] [place] [facility] Body weight 2019-02-23 20:12:00 85.333 kg [facility] [place] [facility] BMI 2019-02-23 20:12:00 31.31 kg/m2 [facility] [place] [facility] Systolic blood 2019-02-07 20:37:00 116 mm[Hg] Univer sity of pressure [place] [facility] Diastolic blood 2019-02-07 20:37:00 80 mm[Hg] Unive rsity of pressure [place] [facility] Body temperature 2019-02-07 20:32:00 36.44 Rika Univ ersity of [place] [facility] Respiratory rate 2019-02-07 20:32:00 16 /min Univ ersity of [place] [facility] Body height 2019-02-07 20:32:00 165.1 cm [facility] [place] [facility] Body weight 2019-02-07 20:32:00 85.276 kg [facility] [place] [facility] BMI 2019-02-07 20:32:00 31.28 kg/m2 [facility] [place] [facility] Procedures Procedure Date / Time Performing Clinician Source Performed CONSENT/REFUSAL FOR 2022-09-11 15:02:05 Doctor Unassigned, No Un iversity [facility] DIAGNOSIS AND TREATMENT Name Medical Branch AUTHORIZATION FOR 2021-09-23 05:01:00 Doctor Unassigned, No Univ ersity of [place] RELEASE OF PHI Name Medical Branch EXTERNAL PROVIDER 2021-09-05 06:01:00 Doctor Unassigned, No Univ ersity of [place] RECORDS Name Medical Branch ABORH CONFIRMATION (LAB 2021-08-29 11:40:00 Maximiliano Nelson [facility] ONLY) Medical Branch HB ABO GROUPING 2021-08-29 11:06:00 Maximiliano Nelson [facility] BASIC METABOLIC PANEL 2021-08-29 11:05:00 Maximiliano Nelson [facility] (NA, K, CL, CO2, Medical Branch GLUCOSE, BUN, CREATININE, CA) CBC WITH DIFF 2021-08-29 11:05:00 Maximiliano Nelson [facility] PROTHROMBIN TIME / INR 2021-08-29 11:05:00 [facility] 2021-08-29 11:05:00 Maximiliano Nelson [facility] Encounters Start End Encounter Admission Attending Care Care Encounter Source Date/Time Date/Time Type Type Clinicians Facility Department ID 2023-02-11 Outpatient [facility] [id number] [place] 09:03:27 [id number] [facility] 2023-02-05 Outpatient [facility] [id number] [place] 09:08:54 [id number] [facility] 2023-02-04 Outpatient [facility] [id number] [place] 08:24:53 [id number] [facility] 2023-02-03 Outpatient [facility] [id number] [place] 13:31:39 [id number] [facility] 2023-02-02 Outpatient [facility] [id number] [place] 10:13:03 [id number] [facility] 2023-05-21 2023-05-21 Outpatient [facility] [id number] [place] 12:00:00 12:00:00 VICTOR MANUEL sierra 2023-04-23 2023-04-23 Office RAFAELA Blake 6414 [id number] [place] 12:00:00 12:42:47 Visit Ernie WADDELL [id number] [facility] [id number] 1 2023-04-09 2023-04-09 Office RAFAELA Telles 6414 [id number] [place] 12:00:00 12:11:34 Visit Victor Manuel [address] [id number] Health 9.2.7.2.686 [id number] 1 2023-04-09 2023-04-09 Outpatient [facility] [id number] [place] 12:00:00 12:11:34 Health 2023-04-02 2023-04-02 Outpatient [facility] [id number] [place] 11:30:00 11:30:00 VICTOR MANUEL sierra 2023-04-02 2023-04-02 Outpatient [facility] [id number] [place] 11:30:00 11:30:00 Health 2023-03-12 2023-03-12 Office Lou, UTP 6414 [id number] [place] 12:00:00 13:01:[address] [id number] Health 9.2.7.2.686 [id number] 1 2023-03-05 2023-03-05 Office ErickanabelRAFAELA 6414 [id number] [place] 12:30:00 12:43:[address] [id number] Health 9.2.7.2.686 [id number] 1 2023-03-04 2023-03-04 Outpatient [facility] [id number] Claude 08:56:47 08:56:47 0823 F Christiano 2023-02-25 2023-02-25 Office Lou, UTP 6414 [id number] [place] 13:30:00 15:09:[address] [id number] Health 9.2.7.2.686 [id number] 1 2023-02-25 2023-02-25 Outpatient [facility] [id number] [place] 13:30:00 15:09:20 Health 2023-02-16 2023-02-16 Outpatient [facility] [id number] [facility] 05:40:00 23:59:00 VICTOR MANUEL 01 2023-02-05 2023-02-05 Office Koki [facility] 6414 [id number] [place] 13:15:00 13:58:54 Visit Victor Manuel MARIN [id number] Health 9.2.7.2.686 [id number] 1 2022-10-23 2022-10-[address] [facility] [id number] Univers 00:00:00 00:00:00 AMIE ivette [facility] 2022-09-22 2022-09-22 Patient Nadeem [facility] [id number] Univers 00:00:00 00:00:00 Outreach Meg [employer] 350.1.13.10 i [place] [id number] [address] OFFICE BUILDING 2022-09-16 2022-09-16 Telephone Kerline [facility] [id number] Univers 00:00:00 00:00:00 [facility] 350.1.13.10 it y [place] [id number] [address] OFFICE BUILDING 2022-09-11 2022-09-11 Office Kerline [facility] [id number] Univers 09:20:00 09:40:00 Visit David [facility] 350.1.13.10 it [place] [id number] [address] OFFICE BUILDING 2022-09-11 2022-09-11 Outpatient R DAVID [facility] [id number] Univers 09:20:00 09:20:00 DAVID CHURCHILL fermin [facility] 2022-09-11 2022-09-11 Orders Doctor CAIT [id number] Univers 00:00:00 00:00:00 Only Unassigned, CAROLYN 350.1.13.10 ity of [place] [facility] 4.2.7.2.686 Zac as [id number] [address] 2022-08-26 2022-08-26 Nurse CAIT Julien [id number] Univers 00:00:00 00:00:00 Triage Leyla LEON 350.1.13.10 it y of HOSPITAL 4.2.7.2.686 [place] [id number] [address] 2022-08-26 2022-08-26 Telephone Kerline SCSAVANA [id number] Univers 00:00:00 00:00:00 David [facility] 350.1.13.10 it [place] [id number] [address] OFFICE BUILDING 2022-01-21 2022-01-21 Outpatient R DAVID [facility] [id number] Univers 11:00:00 11:00:00 DAVID CHURCHILL [facility] 2021-12-17 2021-12-17 Patient Doctor KATHY [id number] Univers 00:00:00 00:00:00 Secure Msg Unassigned, HEALTH 350.1.13.10 ity of [place] [phone] [address] OFFICE BUILDING 2021-11-12 2021-11-12 [address] [facility] [id number] Univers 15:00:00 15:00:00 DAVID CHURCHILL [facility] 2021-10-22 2021-10-22 [address] [facility] [id number] Univers 14:30:00 14:30:00 DAVID CHURCHILL [facility] 2021-10-14 2021-10-[address] [facility] [id number] Univers 11:01:18 23:59:00 CHIANA ity o f [facility] 2021-10-14 2021-10-14 Hospital Bang [facility] [id number] Univers 11:01:18 23:59:00 Encounter [place] [facility] [id number] [place] [phone] [address] OFFICE BUILDING 2021-09-23 2021-09-23 Orders Doctor CAIT 1.2.840.114 [id number] Univers 00:00:00 00:00:00 Only Unassigned, CAROLYN [id number] ity of [place] [address]7.2.686 [place]ac as [phone] [facility] [address] [place] 2021-09-05 2021-09-05 Orders Doctor CAIT 1.2.840.114 [id number] Univers 00:00:00 00:00:00 Only Unassigned, CAROLYN 350.1.13.10 ity of [place] [address]2.686 [place] [phone] [facility] [address] [place] 2021-08-28 2021-08-29 Outpatient U KERLINEDAVID [facility] [id number] Univers 20:51:00 14:00:00 DAVID CHURCHILL [facility] 2021-08-28 2021-08-29 [facility] MARCIA Churchill 1.2.840.114 [id number] Univers 20:51:00 14:00:00 Encounter David LEON 350.1.13.10 ity [facility] 4..7.2.686 [place]ac as [phone] [facility] [address] [place] 2020-09-24 2020-09-[address] [facility] [id number] Univers 16:00:00 16:00:00 ity of [facility] 2020-08-09 2020-08-09 Telephone [facility] 1.2.840.114 [id number] Univers 00:00:00 00:00:00 Daniella Ballesteros PROVIDER ENROLLMENT SPECIALIST 350.1.13.10 it y of [facility] 4.2.7.2.686 Zac as MATERNAL [phone] Med ical & CHILD [address] [place] [address] 2020-07-17 2020-07-[address] [facility] [id number] Univers 08:45:00 08:45:00 SHEBA steele o f [facility] 2020-07-12 2020-07-12 [facility] 1.2.840.114 [id number] Univers 00:00:00 00:00:00 Daniella Ballesteros PROVIDER ENROLLMENT SPECIALIST 350.1.13.10 it y of [facility] 4.2.7.2.686 Zac as MATERNAL [phone] [facility] ical & CHILD [address] [place] [address] 2019-02-23 2019-02-23 [facility] 1.2 .840.114 [id number] [facility] 14:57:22 15:24:24 Visit Casa Marshall PROVIDER ENROLLMENT SPECIALIST [id number] ity of [facility] 4.2.7.2.686 [place]ac as MATERNAL [phone] [facility] & CHILD [address] [place] [address] 2019-02-08 2019-02-08 Nurse Visit, Mecca Nurse [facility] 1.2 .840.114 [id number] [facility] 16:05:21 16:13:38 Visit Sheba Capone PROVIDER ENROLLMENT SPECIALIST 350.1.13. 10 ity of [facility] 4.2.7.2.686 Zac as MATERNAL [phone] [facility] & CHILD [address] [place] [address] 2019-02-07 2019-02-07 Office KATHY Marshall 1.2.840.[id number] [place] [address] 14:48:45 16:29:10 Visit Casa Hurt PROVIDER ENROLLMENT SPECIALIST [id number] ity of [facility] 4.2.7.2.686 Zac as MATERNAL [phone] [facility] & CHILD [address] [place] [address] Results Test Description Test Time Test Comments Results Result Comments Source ABORH Confirmation (Lab Only) 2021-08-29 13:30:16 Test Item Value Reference Range Interpretation Comme nts ABO & RH (test code = 20) A Positive Pe rformed at [facility] Laboratory Services - [facility] Blood Inly[address] [place] [address]Erkt Free: [phone] No. [id number] [facility] (NA, K, CL, CO2, GLUCOSE, BUN, CREATININE, CA)2021-08-29 12:14:34 Test Item Value Reference Range Interpretation Comments NA (test code = 135 mmol/L 135-145 0634126102) K (test code = 4.3 mmol/L 3.5-5.0 6050212163) CL (test code = 108 mmol/L 98-108 4729451566) CO2 TOTAL (test code = 22 mmol/L 23-31 L 7996294959) AGAP (test code = 2-16 1510706538) BUN (test code = 12 mg/dL 7-23 9922142461) GLUCOSE (test code = 131 mg/dL 70-110 H 1174824097) CREATININE (test code = 0.70 mg/dL 0.50-1.04 9395116528) CALCIUM (test code = 8.3 mg/dL 8.6-10.6 L 9381030660) eGFR (test code = mL/min/1.73m2 6502527924) DUSTY (test code = DUSTY) Association of [...] tests). Lab Interpretation Abnormal (test code = 44041-9) [facility] Screen - ONCE [id number] 11:55:01 Test Item Value Reference Range Interpretation Comments ABO & RH (test code A POSITIVE Performe d at [facility] = 20) Laboratory Serv [facility] Blood Bank3 [address] [facility] s [address]Ufpk Free: [phone] A No. [id number] IAT (test code = Negative Performed a t [facility] 1185) Laboratory Serv [facility] Blood [facility]3 [address] [facility] s [id number] Free: [phone] A No. [id number] [facility] TIME / [id number] 11:29:46 Test Item Value Reference Range Interpretation Comments PROTIME PATIENT (test See_Comment [Auto mated message] code = 5964-2) The system apiOmat ich generated this result transmitted ref erence range: 10.1 - 1 2.6 Seconds. The re ference range was not u sed to interpret this result as normal/abnor mal. INR (test code = 6301-6) Nor mal INR <1.1; Warfarin Therap eutic range 2.0 to 3. 0 or 2.5 to 3.5, dep ending upon the indica tions. Lab Interpretation (test Normal code = 66720-1) [facility] Center[facility]IV[facility]IAL THRMPLAS [id number] 11:29:46 Test Item Value Reference Range Interpretation Comments APTT Patient (test code See_Comment L [Au tomated message] = 3173-2) The system apiOmatic h generated this result transmitted ref erence range: 26 - 36 Seconds. The reference range was not used to int erpret this result as normal/abnormal . Lab Interpretation (test Abnormal code = 99098-9) [facility] WITH [id number] 11:22:42 Test Item Value Reference Range Interpretation Comments WBC (test code = See_Comment [Automated 6690-2) message] The sy stem which generated this result transmitted reference range : 4.30 - 11.10 10*3/?L. The reference range was not used to interpret this result as normal/abnormal . RBC (test code = See_Comment L [Automated 359-8) message] The sy stem which generated this [...] RDW-SD (test code = 47.0 fL 39.0-49.9 40289-5) RDW-CV (test code = 13.8 % 12.0-15.5 788-0) PLT (test code = See_Comment [Automated 777-3) message] The sy stem which generated this result transmitted reference range : 166 - 358 10*3/ ?L. The reference r mekhi was not used to interpret this result as normal/abnormal . MPV (test code = 10.8 fL 9.5-12.9 73295-1) NRBC/100 WBC (test See_Comment [Automat ed code = 7017754052) message] The system which generated this result transmitted reference range : 0.0 - 10.0 /100 WBCs. The refer ence range was not u sed to interpret th is result as normal/abnormal . NRBC x10^3 (test code <0.01 See_Comment [Auto mated = [id number]) message] The s ystem which generated this result transmitted reference range : 10*3/?L. The reference range was not used to interpret this result as normal/abnormal . GRAN MAT (NEUT) % 89.4 % (test code = 770-8) IMM GRAN % (test code 0.50 % = 5594751627) LYMPH % (test code = 7.0 % 736-9) MONO % (test code = 3.0 % 5905-5) EOS % (test code = 0.0 % 713-8) BASO % (test code = 0.1 % 706-2) GRAN MAT x10^3(ANC) 9.90 10*3/uL 1.88-7.09 H (test code = 4507846823) IMM GRAN x10^3 (test 0.05 10*3/uL 0.00-0.06 code = 2351638911) LYMPH x10^3 (test code 0.78 10*3/uL 1.32-3.29 L = 731-0) MONO x10^3 (test code 0.33 10*3/uL 0.33-0.92 = 742-7) EOS x10^3 (test code = <0.03 0.03-0.39 L 711-2) BASO x10^3 (test code <0.03 0.01-0.07 = 704-7) Lab Interpretation Abnormal (test code = 12917-0) [facility]"
[2023-05-01] MEDS ORDERED: NA CHLORIDE 0.9% 1,000 ML ONE (16:22)
[2023-05-01] MEDS ORDERED: FENTANYL CITR 100 MCG/2 ML ONE ×2 (16:22→16:32)
[2023-05-01] MEDS ORDERED: ONDANSETRON 4 MG/2 ML VIAL ONE ×2 (16:22→16:33)
[2023-05-01 16:26] LABS: Absolute Lymphocytes (CBC) 1.5 K/uL (0.7-4.9); Hematocrit 38.3 % (36.0-45.0); Lymphocytes % 22.1 % (15.3-44.8); MCV 88.8 fL (80-100); MPV 8.1 fL (7.6-11.3); Platelets 232 thou/uL (152-406); RBC Red Blood Cell Count 4.32 M/uL (3.86-4.86)
[2023-05-01 16:42] LABS: Albumin 3.5 g/dL (3.4-5.0); Bilirubin Total 0.6 mg/dL (0.2-1.0); Potassium 3.5 mEq/L (3.5-5.1); Protein, Total 7.3 g/dL (6.4-8.2)
--- NOTE | 2023-05-01 17:49 | RAD REPORT ---
EXAM DESCRIPTION: CT - Abdomen Pelvis W Contrast - 05/01/2023 5:15 pm CLINICAL HISTORY: ABD PAIN COMPARISON: Abdomen Pelvis W Contrast dated 12/02/2022; Abdomen Pelvis W Contrast dated 8; Abdomen Pelvis W Contrast dated 03/24/2018; CT ABD PELVIS W CONTRAST dated 12/16/2014 TECHNIQUE: Thin cut axial CT imaging of the abdomen and pelvis was performed following intravenous a dministration of 100 mL Isovue 300. Multiplanar reformats were generated and reviewed. All CT scans are performed using dose optimization technique as appropriate and may include automated exposure control or mA/KV adjustment according to patient size. FINDINGS: No suspicious findings in the lung bases. The liver, spleen, adrenal glands, and pancreas show no suspicious findings. Gallbladder was surgical ly removed. Symmetric renal function is seen with no hydronephrosis or suspicious renal mass. No dilated bowel loops. Appendix is unremarkable. Long segment wall thickening of decompressed descen ding and sigmoid colon with some mucosal hyperenhancement. Minimal adjacent fat stranding. No free ai r, free fluid or fluid collection. No hernia, mass or bulky lymphadenopathy. The urinary bladder is s uboptimally distended limiting evaluation, without significant finding. No suspicious bony findings. IMPRESSION: Segmental wall thickening of the decompressed descending through sigmoid colon with some mucosal hyperenhancement. Findings suggest infectious or inflammatory segmental colitis.
--- NOTE | 2023-05-01 18:31 | ER ---
Nurse's Notes [facility] Name: Anne Marie Dubon Age: 48 yrs Sex: Female : 1975 Arrival Date: 05/01/2023 Time: 15:30 Bed 8 Private MD: Diagnosis: Left sided colitis Presentation: 05/01 15:36 Chief complaint: Patient states: "I've been having stomach cramps, hot flashes, and mb9 chills since last night. Last night, I started having blood stools that are bright red. Now I'm vomiting yellow bile and having lower abdominal pain". Coronavirus screen: Vaccine status: Patient reports receiving the 2nd dose of the covid vaccine. Ebola Screen: No symptoms or risks identified at this time. Initial Sepsis Screen: Does the patient meet any 2 criteria? No. Patient's initial sepsis screen is negative. Does the patient have a suspected source of infection? No. Patient's initial sepsis screen is negative. Risk Assessment: Do you want to hurt yourself or someone else? Patient reports no desire to harm self or others. Onset of symptoms was May 01, 2023. 15:36 Method Of Arrival: Wheelchair mb9 15:36 Acuity: JULIA 3 mb9 Triage Assessment: 15:50 General: Appears in no apparent distress. comfortable, Behavior is calm, cooperative. rs5 15:50 Pain: Complains of pain in left lower quadrant. GI: Abdomen is round non-distended, rs5 Bowel sounds present X 4 quads. Abd is soft and non tender X 4 quads. Historical: - Allergies: 15:38 Codeine; mb9 15:38 Hydrocodone-Acetaminophen; mb9 15:38 PENICILLINS; mb9 - PMHx: 15:38 Ovarian cysts; Fractured right foot (tubal ); mb9 - PSHx: 15:38 Cholecystectomy; tubal ; mb9 - Immunization history:: Adult Immunizations up to date. - Social history:: Smoking status: Patient denies any tobacco usage or history of. - Family history:: not pertinent. Screenin:36 [facility] ED Fall Risk Assessment (Adult) History of falling in the last 3 months, rs5 including since admission No falls in past 3 months (0 pts) Confusion or Disorientation No (0 pts) Intoxicated or Sedated No (0 pts) Impaired Gait No (0 pts) Mobility Assist Device Used No (0 pt) Altered Elimination No (0 pt) Score/Fall Risk Level 0 - 2 = Low Risk Oriented to surroundings, Maintained a safe environment. 15:36 Abuse screen: Denies threats or abuse. Nutritional screening: No deficits noted. rs5 Tuberculosis screening: No symptoms or risk factors identified. Assessment: 15:40 General: Appears in no apparent distress. uncomfortable, Behavior is calm, cooperative. rs5 15:40 Pain: Complains of pain in head and left lower quadrant Pain does not radiate. Pain rs5 currently is 9 out of 10 on a pain scale. Quality of pain is described as aching, Pain began 1 day ago. Is continuous. Neuro: Level of Consciousness is awake, alert, obeys commands, Oriented to person, place, time, situation. Cardiovascular: Heart tones S1 S2 present Rhythm is regular. Respiratory: Airway is patent Respiratory effort is even, unlabored, Respiratory pattern is regular, symmetrical, Breath sounds are clear bilaterally. GI: Abdomen is round non-distended, Last BM was May 01, 2023. Bowel sounds present X 4 quads. Abd is soft and non tender X 4 quads. Reports upper abdominal pain, bloody stool. : No signs and/or symptoms were reported regarding the genitourinary system. EENT: No signs and/or symptoms were reported regarding the EENT system. EENT: Denies blurred vision. Derm: Derm: Skin is intact, Skin is pink, warm \\T\\ dry. Musculoskeletal: Range of motion: intact in all extremities. 16:23 Reassessment: Patient is alert, oriented x 3, equal unlabored respirations, skin aa5 warm/dry/pink. 16:30 Pain: Complains of pain in head and left lower quadrant Pain does not radiate. Pain rs5 currently is 1 out of 10 on a pain scale. Quality of pain is described as aching, Pain began 1 day ago. Is continuous. 17:40 Reassessment: No changes from previously documented assessment. Patient and/or family rs5 updated on plan of care and expected duration. Pain level reassessed. Patient is alert, oriented x 3, equal unlabored respirations, skin warm/dry/pink. 18:30 Reassessment: No changes from previously documented assessment. Patient and/or family rs5 updated on plan of care and expected duration. Pain level reassessed. Vital Signs: 15:36 BP 140 / 86; Pulse 86; Resp 18; Temp 97.1; Pulse Ox 100% ; Weight 95.25 kg; Height 5 mb9 ft. 5 in. ; Pain 4/10; 16:23 BP 105 / 44; Pulse 66; Resp 18 S; Pulse Ox 100% on R/A; aa5 18:00 BP 107 / 50; Pulse 63; Resp 18 S; Pulse Ox 100% on R/A; aa5 18:48 BP 110 / 55; Pulse 60; Resp 17; Pulse Ox 99% on R/A; rs5 15:36 Body Mass Index 34.95 (95.25 kg, 165.1 cm) mb9 15:36 Pain Scale: Adult mb9 ED Course: 15:33 Patient arrived in ED. ts1 15:35 Rigo Harden MD is Attending Physician. rt 15:36 Patient has correct armband on for positive identification. Call light in reach. Side rs5 rails up X2. 15:38 Triage completed. mb9 15:39 Arm band placed on. mb9 15:40 Vane De La Fuente, RN is Primary Nurse. ph 16:18 Inserted saline lock: 22 gauge in right antecubital area, using aseptic technique. IV aa5 inserted by Luke Manley RN. 17:16 CT Abd/Pelvis - IV Contrast Only In Process Unspecified. EDMS 18:30 No provider procedures requiring assistance completed. rs5 18:30 IV discontinued, intact, bleeding controlled, No redness/swelling at site. Pressure rs5 dressing applied. 18:31 Zack Borjas MD is Referral Physician. rt Administered Medications: 16:20 Drug: Ondansetron IVP 4 mg IVP once; over 2 minutes Route: IVP; Site: right antecubital;aa5 16:23 Follow up: Response: No adverse reaction aa5 16:23 Drug: NS 0.9% IV 1000 ml IV at 1 bolus Per protocol; 1000 mL bolus Route: IV; Rate: 1 aa5 bolus; Site: right antecubital; 16:40 Follow up: Response: No adverse reaction rs5 16:23 Drug: fentaNYL (PF) IVP 100 mcg IVP once Route: IVP; Site: right antecubital; aa5 16:30 Follow up: Response: No adverse reaction aa5 Medication: 18:30 VIS not applicable for this client. rs5 Outcome: 18:30 Discharged to home ambulatory, rs5 18:30 Condition: stable 18:30 Discharge instructions given to patient, Instructed on discharge instructions, follow up and referral plans. medication usage, Demonstrated understanding of instructions, follow-up care, medications, Prescriptions given X 2, 18:31 Discharge ordered by MD. rt 18:42 Patient left the ED. rs5 Signatures: Dispatcher [employer] EDMS Molly Martinez RN RN aa5 Vane De La Fuente RN RN Jessica Doty RN RN mb9 Rigo Harden MD MD rt Andrea Manley RN RN rs5 Yari Xiao PAS PAS ts1 Corrections: (The following items were deleted from the chart) 18:11 17:23 BP 105 / 44; Pulse 66bpm; Resp 18bpm; Spontaneous; Pulse Ox 100% RA; aa5 aa5 19:15 19:13 General: Appears rs5 rs5
--- NOTE | 2023-05-01 18:32 | EDPHYS ---
Physician Documentation [facility] Name: Anne Marie Dubon Age: 48 yrs Sex: Female : 1975 Arrival Date: 05/01/2023 Time: 15:30 Bed 8 Private MD: ED Physician Rigo Harden HPI: 05/01 16:11 This 48 yrs old Female presents to ER via Wheelchair with complaints of Bloody Stools, rt Nausea/Vomiting. 16:11 Patient presents to the ED with left lower quadrant pain, reported hematochezia rt described as bright red blood stools starting yesterday. Patient states that there was not any brown stool, small mount of just bright red blood. Denies any diarrhea, dyschezia. Reports nausea and vomiting. Denies other acute complaints at this time. She has never had similar symptoms previously. Symptoms are moderate severity, no other aggravating alleviating factors.. Historical: - Allergies: 15:38 Codeine; mb9 15:38 Hydrocodone-Acetaminophen; mb9 15:38 PENICILLINS; mb9 - PMHx: 15:38 Ovarian cysts; Fractured right foot (tubal ); mb9 - PSHx: 15:38 Cholecystectomy; tubal ; mb9 - Immunization history:: Adult Immunizations up to date. - Social history:: Smoking status: Patient denies any tobacco usage or history of. - Family history:: not pertinent. ROS: 16:11 Constitutional: Negative for fever, chills, and weight loss, Cardiovascular: Negative rt for chest pain, palpitations, and edema, Respiratory: Negative for shortness of breath, cough, wheezing, and pleuritic chest pain, MS/Extremity: Negative for injury and deformity, Skin: Negative for injury, rash, and discoloration, Neuro: Negative for headache, weakness, numbness, tingling, and seizure, Psych: Negative for depression, anxiety, suicide ideation, homicidal ideation, and hallucinations, 16:11 Abdomen/GI: Positive for abdominal pain, nausea and vomiting, rectal bleeding, Exam: 16:11 Constitutional: This is a well developed, well nourished patient who is awake, alert, rt and in no acute distress. Head/Face: Normocephalic, atraumatic. Chest/axilla: Normal chest wall appearance and motion. Nontender with no deformity. No lesions are appreciated. Cardiovascular: Regular rate and rhythm with a normal S1 and S2. No gallops, murmurs, or rubs. Normal PMI, no JVD. No pulse deficits. Respiratory: Lungs have equal breath sounds bilaterally, clear to auscultation and percussion. No rales, rhonchi or wheezes noted. No increased work of breathing, no retractions or nasal flaring. Skin: Warm, dry with normal turgor. Normal color with no rashes, no lesions, and no evidence of cellulitis. MS/ Extremity: Pulses equal, no cyanosis. Neurovascular intact. Full, normal range of motion. Neuro: Awake and alert, GCS 15, oriented to person, place, time, and situation. Cranial nerves II-XII grossly intact. Motor strength 5/5 in all extremities. Sensory grossly intact. Cerebellar exam normal. Normal gait. Psych: Awake, alert, with orientation to person, place and time. Behavior, mood, and affect are within normal limits. 16:11 Abdomen/GI: Tenderness to the left lower quadrant without rebound, guarding, distention, Vital Signs: 15:36 BP 140 / 86; Pulse 86; Resp 18; Temp 97.1; Pulse Ox 100% ; Weight 95.25 kg; Height 5 mb9 ft. 5 in. ; Pain 4/10; 16:23 BP 105 / 44; Pulse 66; Resp 18 S; Pulse Ox 100% on R/A; aa5 18:00 BP 107 / 50; Pulse 63; Resp 18 S; Pulse Ox 100% on R/A; aa5 18:48 BP 110 / 55; Pulse 60; Resp 17; Pulse Ox 99% on R/A; rs5 15:36 Body Mass Index 34.95 (95.25 kg, 165.1 cm) mb9 15:36 Pain Scale: Adult mb9 MDM: 15:42 Patient medically screened. rt 20:12 Differential diagnosis: Colitis, diverticulitis, hemorrhoid. Data reviewed: vital rt signs, nurses notes. Consideration of Admission/Observation Escalation of care including admission/observation considered. Patient has no septic indicators, stable labs, pain is well controlled, mild colitis seen on CT scan, do not suspect upper GI bleed, stable for outpatient care, return precautions discussed.. I considered the following discharge prescriptions or medication management in the emergency department Medications were administered in the Emergency Department. See MAR. Independent interpretation of the following test(s) in the Emergency Department CT Scan: My interpretation is No bowel obstruction symmetric rotation of CT scan images. Counseling: I had a detailed discussion with the patient and/or guardian regarding the historical points, exam findings, and any diagnostic results supporting the discharge/admit diagnosis, lab results, radiology results, the need for outpatient follow up, to return to the emergency department if symptoms worsen or persist or if there are any questions or concerns that arise at home. Response to treatment: the patient's symptoms have markedly improved after treatment. 05/01 16:03 Order name: CBC with Diff; Complete Time: 17:15 rt 05/01 16:03 Order name: CMP; Complete Time: 17:15 rt 05/01 16:03 Order name: Lipase; Complete Time: 17:15 rt 05/01 16:03 Order name: Test, Serum; Complete Time: 17:15 rt 05/01 16:03 Order name: CT Abd/Pelvis - IV Contrast Only; Complete Time: 17:50 rt 05/01 16:03 Order name: IV Saline Lock; Complete Time: 16:23 rt 05/01 16:03 Order name: Labs collected and sent; Complete Time: 16:23 rt Administered Medications: 16:20 Drug: Ondansetron IVP 4 mg IVP once; over 2 minutes Route: IVP; Site: right antecubital;aa5 16:23 Follow up: Response: No adverse reaction aa5 16:23 Drug: NS 0.9% IV 1000 ml IV at 1 bolus Per protocol; 1000 mL bolus Route: IV; Rate: 1 aa5 bolus; Site: right antecubital; 16:40 Follow up: Response: No adverse reaction rs5 16:23 Drug: fentaNYL (PF) IVP 100 mcg IVP once Route: IVP; Site: right antecubital; aa5 16:30 Follow up: Response: No adverse reaction aa5 Disposition Summary: 05/01/23 18:31 Discharge Ordered Notes: Location: Home rt Problem: new rt Symptoms: have improved rt Condition: Stable rt Diagnosis - Left sided colitis rt Followup: rt - With: Zack Borjas MD - When: 7 - 10 days - Reason: Discharge Instructions: - Discharge Summary Sheet rt - Colitis rt Forms: - Medication Reconciliation Form rt - Thank You Letter rt - Antibiotic Education rt - Prescription Opioid Use rt - Patient Portal Instructions rt - Leadership Thank You Letter rt Prescriptions: - Flagyl 500 mg Oral tablet - take 1 tablet ORAL route every 8 hours for 7 days; 21 tablet; Refills: 0, rt Product Selection Permitted - Cipro 500 mg Oral Tablet - take 1 tablet ORAL route every 12 hours for 7 days; 14 tablet; Refills: 0, rt Product Selection Permitted Signatures: Dispatcher [employer] Molly Christianson RN RN aa5 Jessica Doty RN RN mb9 Rigo Harden MD MD rt Andrea Manley RN RN rs5
[2023-05-01 18:56] VITALS: TEMP 97.1; O2SAT 100
[2023-05-01 19:08] VITALS: BP 107/50
== END 2023-05-01 18:42 | disposition home or self-care (01) ==
LOC: ER 15:30
DX: K51.50 Left sided colitis without complications (principal); Z88.0 Allergy status to penicillin; Z88.5 Allergy status to narcotic agent
CPT/HCPCS: 85025; 36415; 84703; 83690; 80053; 74177; 96375; 96374; 99284; Q9967; J3010; J2405; J7030